=== PATIENT | female | born 1965 | race Caucasian/White ===

== ENCOUNTER → 2016-11-22 | Outpatient (REF) | payer OTHER ==
[2016-11-22 13:13] LABS: BASO % 0.1 % (0.0-1.0); EOS # 0.2 K/mm3 (0.0-0.50); EOS % 2.4 % (0.0-3.0); LARGE UNSTAINED CELL # 0.1 K/mm3 (0.0-0.4); LARGE UNSTAINED CELL % 1.8 % (0.0-4.0); LYMPH # 2.1 K/mm3 (1.5-4.5); LYMPH % 28.3 % (24.0-44.0); MEAN CORPUSCULAR HGB CONC 34.2 g/dl (32.0-36.5); MEAN CORPUSCULAR VOLUME 90.7 fl (80.0-96.0); MONO # 0.4 K/mm3 (0.0-0.8); MONO % 5.4 % (0.0-5.0); NEUTROPHILS # 4.5 K/mm3 (1.8-7.7); PLATELET COUNT, AUTOMATED 312 k/mm3 (150-450); RED CELL DISTRIBUTION WIDTH 13.2 % (11.5-14.5); WHITE BLOOD COUNT 7.3 K/mm3 (4.0-10.0)
[2016-11-22 13:14] LABS: ALBUMIN/GLOBULIN RATIO 1.43 (1.00-1.93); ALKALINE PHOSPHATASE 66 U/L (45-117); ALT/SGPT 39 U/L (12-78); ANION GAP 8 MEQ/L (8-16); AST/SGOT 14 U/L (15-37); BILIRUBIN,TOTAL 0.3 MG/DL (0.2-1.0); BLOOD UREA NITROGEN 14 MG/DL (7-18); CALCIUM LEVEL 8.7 MG/DL (8.5-10.1); CARBON DIOXIDE LEVEL 27 MEQ/L (21-32); CHLORIDE LEVEL 108 MEQ/L (98-107); CHOLESTEROL LEVEL 248 MG/DL (<200); CREATININE FOR GFR 0.91 MG/DL (0.55-1.02); FREE T4 1.02 NG/DL (0.76-1.46); GLOMERULAR FILTRATION RATE > 60.0 (>58); GLUCOSE, FASTING 96 MG/DL (70-105); SODIUM LEVEL 143 MEQ/L (136-145); TOTAL PROTEIN 6.8 GM/DL (6.4-8.2); TRIGLYCERIDES LEVEL 269 MG/DL (<150)
== END ==
LOC: M SFHCADAM 07:52
PROVIDERS: ATTEND Physician Assistant Medical
DX: Z83.3 Family history of diabetes mellitus (principal)

== ENCOUNTER → 2017-01-02 | Day surgery (SDC) | payer OTHER ==
[~2017-01-02] VITALS: Ht 160 cm; Wt 77.1 kg
[~2017-01-02] MED LIST: CALTCHW5 PO; CENTTAB12 PO; CHLOROPROCAINE 2 % INJ PRES.FREE 20 ML VIAL (J2400) As Ordered ONE; FISH1000 PO; FLUC150T PO; IBUPROFEN 600 MG TAB PO PRN; KETOROLAC 60 MG/2 ML VIAL (J1885) As Ordered ONE; LIDOCAINE 2% INJ 100 MG/5 ML SDV (FOR ANES.) As Ordered ONE; LR 1,000 ML IV SCH; METOCLOPRAMIDE INJ 10MG/2ML VIAL (J2765) IV PRN; MIDAZOLAM INJ 2 MG/2 ML VIAL (J2250) As Ordered ONE; NORCO, ANEXSIA 5/325MG TABLET (HYDROcodone/ACETAMINOPHEN) PO PRN; ONDANSETRON 4MG/2ML VIAL (J2405) As Ordered ONE; ONDANSETRON 4MG/2ML VIAL (J2405) IV PRN; PROPOFOL 200 MG/20 ML VIAL As Ordered ONE; VITA1CAP7 PO; VITATAB11 PO; dexameTHASONE 4 MG/ML 1ML VIAL (J1100) As Ordered ONE; fentaNYL 100 MCG/2 ML INJECTION (J3010) As Ordered ONE; fentaNYL 100 MCG/2 ML INJECTION (J3010) IV PRN
[2017-01-02 11:24] LABS: CONTROL LINE UCG INT CTR LINE PRESENT
--- NOTE | 2017-01-02 14:24 | RO ---
DATE OF SURGERY: 01/02/2017 PREOPERATIVE DIAGNOSES AND INDICATION FOR SURGERY: Menorrhagia and dysmenorrhea, failed conservative measures. POSTOPERATIVE DIAGNOSES: Menorrhagia and dysmenorrhea, failed conservative measures. PROCEDURE: Dilation and curettage (D and C), hysteroscopy, NovaSure ablation. SURGEON: Anabelle Al MD MITER OPERATOR: ANESTHESIA: Spinal. BRIEF DESCRIPTION OF PROCEDURE AND FINDINGS: Francisca was brought to the operating room, where sufficient spinal anesthesia was induced, and she was prepped, draped, and positioned in the usual sterile fashion. The bladder was emptied, and the cervix was grasped with a single-tooth tenaculum. This uterus would be accessible from below. The uterus was then sounded, and the endometrial cavity measured at 4.5 after an 8.5 sounding measurement and a 4 cm cervical length, so we had a length of the endometrial cavity of 4.5. We subsequently measured width at 4.4, but at this point, we just had length 4.5. I then dilated the cervix in order to introduce the hysteroscope, which was used to visualize the endometrial cavity, which was normal in appearance. There was a little bit of thickening of the endometrium posteriorly and in the lower uterine segment anteriorly, but this is certainly to be expected, given her menometrorrhagia; and definitely, the lining was consistent with sort-of asynchronous endometrium. We then after visualizing the cavity, curetted, sampled this tissue again, and then placed the NovaSure ablative device. Again, length was set at 4.5. Width was measured at 4.4; and so, this was set; and then, an uncomplicated NovaSure endometrial ablation was carried out. The procedure was then ended. Estimated blood loss for the procedure was 5 mL or less. Fluid replacement was crystalloid. COMPLICATIONS: None. CONDITION AND DISPOSITION: Francisca tolerated the procedure well and was recovering in the recovery room in good condition.
[2017-01-02 16:55] VITALS: BP 161/95
== END | disposition home or self-care (01) ==
LOC: M SDC 10:23
PROVIDERS: ATTEND Obstetrics & Gynecology
DX: N92.0 Excessive and frequent menstruation with regular cycle (principal); N94.6 Dysmenorrhea, unspecified; K21.9 Gastro-esophageal reflux disease without esophagitis; K44.9 Diaphragmatic hernia without obstruction or gangrene; Z88.2 Allergy status to sulfonamides
CPT/HCPCS: 58563; 84703; 88305; C2618; J1100; J1885; J2250; J2400; J2405; J3010

== ENCOUNTER → 2017-01-30 | Outpatient (CLI) | payer OTHER ==
[~2017-01-30] MED LIST changes: -CHLOROPROCAINE 2 % INJ PRES.FREE 20 ML VIAL (J2400) As Ordered ONE; -IBUPROFEN 600 MG TAB PO PRN; -KETOROLAC 60 MG/2 ML VIAL (J1885) As Ordered ONE; -LIDOCAINE 2% INJ 100 MG/5 ML SDV (FOR ANES.) As Ordered ONE; -LR 1,000 ML IV SCH; -METOCLOPRAMIDE INJ 10MG/2ML VIAL (J2765) IV PRN; -MIDAZOLAM INJ 2 MG/2 ML VIAL (J2250) As Ordered ONE; -NORCO, ANEXSIA 5/325MG TABLET (HYDROcodone/ACETAMINOPHEN) PO PRN; -ONDANSETRON 4MG/2ML VIAL (J2405) As Ordered ONE; -ONDANSETRON 4MG/2ML VIAL (J2405) IV PRN; -PROPOFOL 200 MG/20 ML VIAL As Ordered ONE; -dexameTHASONE 4 MG/ML 1ML VIAL (J1100) As Ordered ONE; -fentaNYL 100 MCG/2 ML INJECTION (J3010) As Ordered ONE; -fentaNYL 100 MCG/2 ML INJECTION (J3010) IV PRN
--- NOTE | 2017-01-30 16:05 | REP ---
Clinical: thoracic pain. Technique: AP, lateral, and swimmers views. Findings: Alignment and kyphosis is maintained. Vertebral bodies intact. No acute fracture / compression injury or subluxation. No degenerative changes. Paravertebral soft tissues are normal. Impression: Normal thoracic spine series. Signed by Jaquan Nix MD 01/30/2017 03:56 P
--- NOTE | 2017-01-30 16:06 | REP ---
Clinical: Lower back pain. Technique: AP, lateral, bilateral oblique and coned-down views of the lumbosacral spine. Findings: Alignment and lordosis maintained. No acute fracture / compression injury or subluxation. Moderate degenerative changes at the L3-4 and L4-5 levels including anterior spurring, endplate sclerosis and minimal disc space narrowing. Moderate to advanced degenerative changes at the L5-S1 level include endplate sclerosis, anterior spurring, pronounced disc space narrowing and hypertrophic facet changes. No evidence for spondylolysis or spondylolisthesis. Impression: Moderate to early advanced degenerative changes. Signed by Jaquan Nix MD 01/30/2017 03:58 P
== END ==
LOC: M ADAMS 14:11
PROVIDERS: ATTEND Physician Assistant Medical
DX: M51.36 Other intervertebral disc degeneration, lumbar region (principal)
CPT/HCPCS: 72072; 72100; G0463

== ENCOUNTER → 2017-11-13 | Outpatient (REF) | payer OTHER ==
[2017-11-13 17:27] LABS: APPEARANCE, URINE HAZY (CLEAR); BACTERIA, URINE AUTO NEGATIVE (NEGATIVE); BILIRUBIN, URINE AUTO NEGATIVE (NEGATIVE); BLOOD, URINE BLOOD NEGATIVE (NEGATIVE); COLOR, URINE YELLOW (YELLOW); GLUCOSE, URINE (UA) AUTO NEGATIVE (NEGATIVE); KETONE, URINE AUTO TRACE mg/dL (NEGATIVE); LEUKOCYTE ESTERASE, URINE AUTO 1+ (NEGATIVE); MUCUS, URINE SMALL (NEGATIVE); NITRITE, URINE AUTO NEGATIVE (NEGATIVE); PROTEIN, URINE AUTO NEGATIVE (NEGATIVE); RBC, URINE AUTO 2 /HPF (0-3); SPECIFIC GRAVITY URINE AUTO 1.015 (1.002-1.035); SQUAMOUS EPITHELIAL CELL UR AU 5 /HPF (0-6); UROBILINOGEN, URINE AUTO 0.2 mg/dL (0.0-2.0); WBC, URINE AUTO 4 /HPF (0-3)
== END ==
LOC: M LAB REF 16:28
DX: N39.0 Urinary tract infection, site not specified (principal)
CPT/HCPCS: 81001

== ENCOUNTER → 2017-11-24 | Outpatient (REF) | payer OTHER ==
[2017-11-24 20:59] LABS: BASO # 0.1 10^3/uL (0.0-0.2); BASO % 0.6 % (0.0-1.0); EOS # 0.2 10^3/uL (0.0-0.50); HEMATOCRIT 38.8 % (36.0-47.0); HEMOGLOBIN 13.1 g/dl (12.0-16.0); IMMATURE GRANULOCYTE % 0.2 % (0-0); LYMPH # 2.3 10^3/uL (1.5-4.5); LYMPH % 27.8 % (24.0-44.0); MEAN CORPUSCULAR HEMOGLOBIN 31.1 pg (27.0-33.0); MEAN CORPUSCULAR HGB CONC 33.8 g/dl (32.0-36.5); MEAN CORPUSCULAR VOLUME 92.2 fl (80.0-96.0); MONO # 0.9 10^3/uL (0.0-0.8); MONO % 11.2 % (0.0-5.0); NEUTROPHILS # 4.9 10^3/uL (1.8-7.7); NEUTROPHILS % 58.2 % (36.0-66.0); PLATELET COUNT, AUTOMATED 281 10^3/uL (150-450); RED BLOOD COUNT 4.21 10^6/uL (4.00-5.40); RED CELL DISTRIBUTION WIDTH 12.9 % (11.5-14.5); WHITE BLOOD COUNT 8.4 10^3/uL (4.0-10.0)
[2017-11-24 21:10] LABS: FERRITIN 59 NG/ML (8-252); FREE T4 0.96 NG/DL (0.76-1.46); IRON (FE) 94 UG/DL (50-170); PERCENT SATURATION 30.9 % (13.2-45.0); THYROID STIMULATING HORMONE 0.921 uIU/ML (0.358-3.740); TOTAL IRON BINDING CAPACITY 304 UG/DL (250-450)
== END ==
LOC: M SFHCADAM 15:23
DX: N93.9 Abnormal uterine and vaginal bleeding, unspecified (principal)

== ENCOUNTER → 2018-04-10 | Outpatient (REF) | payer OTHER ==
[2018-04-10 12:48] LABS: APPEARANCE, URINE CLEAR (CLEAR); BACTERIA, URINE AUTO 1+ (NEGATIVE); BILIRUBIN, URINE AUTO NEGATIVE (NEGATIVE); BLOOD, URINE BLOOD NEGATIVE (NEGATIVE); COLOR, URINE STRAW (YELLOW); GLUCOSE, URINE (UA) AUTO NEGATIVE (NEGATIVE); KETONE, URINE AUTO NEGATIVE (NEGATIVE); LEUKOCYTE ESTERASE, URINE AUTO NEGATIVE (NEGATIVE); NITRITE, URINE AUTO NEGATIVE (NEGATIVE); PROTEIN, URINE AUTO NEGATIVE (NEGATIVE); RBC, URINE AUTO 0 /HPF (0-3); SPECIFIC GRAVITY URINE AUTO 1.003 (1.002-1.035); SQUAMOUS EPITHELIAL CELL UR AU 1 /HPF (0-6); UROBILINOGEN, URINE AUTO 0.2 mg/dL (0.0-2.0); WBC, URINE AUTO 1 /HPF (0-3)
== END ==
LOC: M SFHCADAM 11:28
DX: M54.5 Low back pain (principal)

== ENCOUNTER → 2018-05-30 | Outpatient (REF) | payer OTHER ==
[2018-05-30 17:44] LABS: APPEARANCE, URINE CLEAR (CLEAR); BACTERIA, URINE AUTO NEGATIVE (NEGATIVE); BILIRUBIN, URINE AUTO NEGATIVE (NEGATIVE); BLOOD, URINE BLOOD 2+ (NEGATIVE); COLOR, URINE STRAW (YELLOW); GLUCOSE, URINE (UA) AUTO NEGATIVE (NEGATIVE); KETONE, URINE AUTO NEGATIVE (NEGATIVE); LEUKOCYTE ESTERASE, URINE AUTO TRACE (NEGATIVE); MUCUS, URINE SMALL (NEGATIVE); NITRITE, URINE AUTO NEGATIVE (NEGATIVE); PROTEIN, URINE AUTO NEGATIVE (NEGATIVE); RBC, URINE AUTO 24 /HPF (0-3); SPECIFIC GRAVITY URINE AUTO 1.006 (1.002-1.035); SQUAMOUS EPITHELIAL CELL UR AU 0 /HPF (0-6); UROBILINOGEN, URINE AUTO 0.2 mg/dL (0.0-2.0); WBC, URINE AUTO 4 /HPF (0-3)
== END ==
LOC: M LAB REF 17:01
DX: N39.0 Urinary tract infection, site not specified (principal)

== ENCOUNTER → 2018-06-14 | Outpatient (REF) | payer OTHER ==
[2018-06-14 17:33] LABS: APPEARANCE, URINE CLEAR (CLEAR); BACTERIA, URINE AUTO NEGATIVE (NEGATIVE); BILIRUBIN, URINE AUTO NEGATIVE (NEGATIVE); BLOOD, URINE BLOOD NEGATIVE (NEGATIVE); COLOR, URINE YELLOW (YELLOW); GLUCOSE, URINE (UA) AUTO NEGATIVE (NEGATIVE); KETONE, URINE AUTO NEGATIVE (NEGATIVE); LEUKOCYTE ESTERASE, URINE AUTO 2+ (NEGATIVE); MUCUS, URINE SMALL (NEGATIVE); NITRITE, URINE AUTO NEGATIVE (NEGATIVE); PROTEIN, URINE AUTO NEGATIVE (NEGATIVE); RBC, URINE AUTO 3 /HPF (0-3); SPECIFIC GRAVITY URINE AUTO 1.008 (1.002-1.035); SQUAMOUS EPITHELIAL CELL UR AU 1 /HPF (0-6); UROBILINOGEN, URINE AUTO 0.2 mg/dL (0.0-2.0); WBC, URINE AUTO 4 /HPF (0-3)
== END ==
LOC: M LAB REF 16:59
DX: N39.0 Urinary tract infection, site not specified (principal)
CPT/HCPCS: 81001

== ENCOUNTER → 2018-06-20 | Outpatient (REF) | payer OTHER ==
[2018-06-20 19:50] LABS: APPEARANCE, URINE CLEAR (CLEAR); BACTERIA, URINE AUTO NEGATIVE (NEGATIVE); BILIRUBIN, URINE AUTO NEGATIVE (NEGATIVE); BLOOD, URINE BLOOD 1+ (NEGATIVE); COLOR, URINE COLORLESS (YELLOW); GLUCOSE, URINE (UA) AUTO NEGATIVE (NEGATIVE); KETONE, URINE AUTO NEGATIVE (NEGATIVE); LEUKOCYTE ESTERASE, URINE AUTO 1+ (NEGATIVE); NITRITE, URINE AUTO NEGATIVE (NEGATIVE); PROTEIN, URINE AUTO NEGATIVE (NEGATIVE); RBC, URINE AUTO 0 /HPF (0-3); SPECIFIC GRAVITY URINE AUTO 1.001 (1.002-1.035); SQUAMOUS EPITHELIAL CELL UR AU 0 /HPF (0-6); UROBILINOGEN, URINE AUTO 0.2 mg/dL (0.0-2.0); WBC, URINE AUTO 1 /HPF (0-3)
== END ==
LOC: M LAB REF 16:54
DX: R31.9 Hematuria, unspecified (principal)

== ENCOUNTER → 2018-06-26 | Outpatient (REF) | payer OTHER ==
[2018-06-26 13:34] LABS: FREE T4 0.93 NG/DL (0.76-1.46); THYROID STIMULATING HORMONE 0.669 uIU/ML (0.358-3.740)
== END ==
LOC: M LABDRWAD 12:55
DX: N92.6 Irregular menstruation, unspecified (principal)
CPT/HCPCS: 84443

== ENCOUNTER → 2018-08-23 | Outpatient (REF) | payer OTHER ==
[2018-08-23 19:01] LABS: BASO % 0.5 % (0.0-1.0); EOS # 0.2 10^3/uL (0.0-0.50); HEMATOCRIT 38.1 % (36.0-47.0); HEMOGLOBIN 12.9 g/dl (12.0-15.5); IMMATURE GRANULOCYTE % 0.5 % (0-3.0); LYMPH # 2.4 10^3/uL (1.5-4.5); LYMPH % 30.2 % (24.0-44.0); MEAN CORPUSCULAR HEMOGLOBIN 31.4 pg (27.0-33.0); MEAN CORPUSCULAR HGB CONC 33.9 g/dl (32.0-36.5); MEAN CORPUSCULAR VOLUME 92.7 fl (80.0-96.0); MONO # 0.5 10^3/uL (0.0-0.8); MONO % 6.7 % (0.0-5.0); NEUTROPHILS # 4.6 10^3/uL (1.8-7.7); NEUTROPHILS % 59.1 % (36.0-66.0); PLATELET COUNT, AUTOMATED 284 10^3/uL (150-450); RED BLOOD COUNT 4.11 10^6/uL (4.00-5.40); RED CELL DISTRIBUTION WIDTH 12.8 % (11.5-14.5); WHITE BLOOD COUNT 7.8 10^3/uL (4.0-10.0)
[2018-08-23 19:11] LABS: PARTIAL THROMBOPLASTIN TIME 27.7 SECONDS (25.4-37.6); PROTHROMBIN TIME 11.2 SECONDS (12.1-14.4)
[2018-08-23 19:15] LABS: ALBUMIN 3.7 GM/DL (3.2-5.2); ANION GAP 6 MEQ/L (8-16); BLOOD UREA NITROGEN 13 MG/DL (7-18); CALCIUM LEVEL 8.7 MG/DL (8.5-10.1); CARBON DIOXIDE LEVEL 33 MEQ/L (21-32); CHLORIDE LEVEL 104 MEQ/L (98-107); CREATININE FOR GFR 1.01 MG/DL (0.55-1.30); GLOMERULAR FILTRATION RATE > 60.0 (>51); GLUCOSE, FASTING 108 MG/DL (70-100); POTASSIUM SERUM 3.9 MEQ/L (3.5-5.1); SODIUM LEVEL 143 MEQ/L (136-145)
== END ==
LOC: M SFHCADAM 15:15
DX: Z01.812 Encounter for preprocedural laboratory examination (principal); N20.1 Calculus of ureter

== ENCOUNTER → 2019-01-20 | Outpatient (REF) | payer OTHER | LOC: M LAB REF 10:12 | PROVIDERS: ATTEND Physician Assistant | DX: R30.0 Dysuria (principal) ==

== ENCOUNTER → 2019-01-31 | Outpatient (REF) | payer OTHER ==
[2019-01-31 19:37] LABS: AMORPHOUS SEDIMENT SMALL (NEGATIVE); APPEARANCE, URINE CLEAR (CLEAR); BACTERIA, URINE AUTO 1+ (NEGATIVE); BILIRUBIN, URINE AUTO NEGATIVE (NEGATIVE); BLOOD, URINE BLOOD 1+ (NEGATIVE); COLOR, URINE STRAW (YELLOW); GLUCOSE, URINE (UA) AUTO NEGATIVE (NEGATIVE); KETONE, URINE AUTO NEGATIVE (NEGATIVE); LEUKOCYTE ESTERASE, URINE AUTO 3+ (NEGATIVE); NITRITE, URINE AUTO NEGATIVE (NEGATIVE); PROTEIN, URINE AUTO NEGATIVE (NEGATIVE); RBC, URINE AUTO 0 /HPF (0-3); SPECIFIC GRAVITY URINE AUTO 1.001 (1.002-1.035); SQUAMOUS EPITHELIAL CELL UR AU 0 /HPF (0-6); UROBILINOGEN, URINE AUTO 0.2 mg/dL (0.0-2.0); WBC, URINE AUTO 15 /HPF (0-3)
[2019-01-31 19:39] LABS: BASO % 0.5 % (0.0-1.0); EOS # 0.2 10^3/uL (0.0-0.50); EOS % 1.8 % (0.0-3.0); HEMATOCRIT 39.1 % (36.0-47.0); HEMOGLOBIN 13.3 g/dl (12.0-15.5); LYMPH # 2.9 10^3/uL (1.5-4.5); LYMPH % 34.4 % (24.0-44.0); MEAN CORPUSCULAR HEMOGLOBIN 30.6 pg (27.0-33.0); MEAN CORPUSCULAR VOLUME 89.9 fl (80.0-96.0); MONO # 0.6 10^3/uL (0.0-0.8); MONO % 7.6 % (0.0-5.0); NEUTROPHILS # 4.6 10^3/uL (1.8-7.7); NEUTROPHILS % 55.6 % (36.0-66.0); PLATELET COUNT, AUTOMATED 302 10^3/uL (150-450); RED BLOOD COUNT 4.35 10^6/uL (4.00-5.40); WHITE BLOOD COUNT 8.3 10^3/uL (4.0-10.0)
[2019-01-31 19:42] LABS: ALBUMIN 4.1 GM/DL (3.2-5.2); ALT/SGPT 62 U/L (12-78); BILIRUBIN,TOTAL 0.3 MG/DL (0.2-1.0); BLOOD UREA NITROGEN 14 MG/DL (7-18); CALCIUM LEVEL 9.2 MG/DL (8.5-10.1); CARBON DIOXIDE LEVEL 30 MEQ/L (21-32); CHLORIDE LEVEL 104 MEQ/L (98-107); CHOLESTEROL LEVEL 263 MG/DL (<200); CHOLESTEROL RISK RATIO 6.116 (<5); GLOMERULAR FILTRATION RATE > 60.0 (>51); GLUCOSE, FASTING 84 MG/DL (70-100); HDL CHOLESTEROL 43 MG/DL (>40); LDL CHOLESTEROL 145 MG/DL (<100); NON-HDL-C 220 MG/DL; SODIUM LEVEL 140 MEQ/L (136-145); TOTAL PROTEIN 7.2 GM/DL (6.4-8.2); TRIGLYCERIDES LEVEL 373 MG/DL (<150)
== END ==
LOC: M SFHCADAM 13:43
PROVIDERS: ATTEND Physician Assistant Medical
DX: I72.8 Aneurysm of other specified arteries (principal); N93.9 Abnormal uterine and vaginal bleeding, unspecified; E66.3 Overweight; E78.2 Mixed hyperlipidemia

== ENCOUNTER → 2019-02-01 | Outpatient (CLI) | payer OTHER ==
[~2019-02-01] MED LIST changes: +ISOVUE-370 76% 125ML VIAL (Q9967 PER ML) As Ordered ONE
--- NOTE | 2019-02-01 09:43 | REP ---
CT ANGIOGRAPHY OF THE ABDOMEN AND VISCERAL ARTERIES WITH IV CONTRAST: HISTORY: Splenic artery aneurysm. Comparison is made with KUB study from August 17, 2018, CT exam from July 11, 2018. CT CONTRAST DOSE: 100 mL of intravenous Isovue [address] FINDINGS: Nonvascular findings include a [id number] size hiatal hernia, moderate diffuse fatty infiltration of the liver, cholelithiasis, bilateral intrarenal nephrolithiasis and bilateral renal cysts. The largest intrarenal calculus in the right mid kidney measuring 7 mm. The largest cyst is adjacent to this in the right mid kidney. This cyst shows some focal thin calcification in one of its garcia. This cyst measures 3.1 cm in greatest diameter. No hydronephrosis is seen. VASCULAR FINDINGS: There is atherosclerotic calcification in a normal caliber infrarenal abdominal aorta. No aneurysm is seen. The common iliac, proximal external iliac, and proximal internal iliac arteries are bilaterally patent. Singular nonstenotic renal arteries are noted bilaterally. The celiac superior mesenteric and inferior mesenteric axes are patent and nonstenotic. There is a thrombosed peripherally calcified 1.1 cm aneurysm of the distal splenic artery near the splenic hilus. No other aneurysm is seen. The splenic artery is tortuous particularly distally. There is no evidence of splenic infarct. 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 Mild atherosclerotic changes. Incidental findings include fatty liver, hiatal hernia, cholelithiasis, bilateral nephrolithiasis, and bilateral renal cysts. Electronically Signed by Abelardo Hdz MD 02/01/2019 02:29 P
== END ==
LOC: M RAD 07:28
PROVIDERS: ATTEND Physician Assistant Medical
DX: I72.8 Aneurysm of other specified arteries (principal); K44.9 Diaphragmatic hernia without obstruction or gangrene; K76.0 Fatty (change of) liver, not elsewhere classified; K80.20 Calculus of gallbladder without cholecystitis without obstruction; N20.0 Calculus of kidney; N28.1 Cyst of kidney, acquired; I70.0 Atherosclerosis of aorta
CPT/HCPCS: 74175; Q9967

== ENCOUNTER → 2019-03-28 | Outpatient (REF) | payer OTHER ==
[~2019-03-28] MED LIST changes: +D-3-50003 PO; -ISOVUE-370 76% 125ML VIAL (Q9967 PER ML) As Ordered ONE; -VITA1CAP7 PO
[2019-03-28 19:53] LABS: BLOOD UREA NITROGEN 14 MG/DL (7-18); CREATININE FOR GFR 1.01 MG/DL (0.55-1.30); GLOMERULAR FILTRATION RATE > 60.0 (>51)
== END ==
LOC: M SFHCADAM 09:31
PROVIDERS: ATTEND Physician Assistant Medical
DX: I72.8 Aneurysm of other specified arteries (principal)

== ENCOUNTER → 2019-05-10 | Outpatient (REF) | payer OTHER ==
[2019-05-10 13:16] LABS: BLOOD UREA NITROGEN 14 MG/DL (7-18); CALCIUM LEVEL 9.4 MG/DL (8.5-10.1); CARBON DIOXIDE LEVEL 29 MEQ/L (21-32); CHLORIDE LEVEL 106 MEQ/L (98-107); CREATININE FOR GFR 1.01 MG/DL (0.55-1.30); GLOMERULAR FILTRATION RATE > 60.0 (>51); GLUCOSE, FASTING 88 MG/DL (70-100); POTASSIUM SERUM 3.5 MEQ/L (3.5-5.1); SODIUM LEVEL 142 MEQ/L (136-145)
== END ==
LOC: M LABDRWAD 12:37
PROVIDERS: ATTEND Internal Medicine Nephrology
DX: E87.6 Hypokalemia (principal)

== ENCOUNTER → 2019-06-03 | Outpatient (REF) | payer OTHER ==
[2019-06-03 19:37] LABS: BLOOD UREA NITROGEN 13 MG/DL (7-18); CALCIUM LEVEL 9.1 MG/DL (8.5-10.1); CARBON DIOXIDE LEVEL 28 MEQ/L (21-32); CHLORIDE LEVEL 104 MEQ/L (98-107); CREATININE FOR GFR 0.89 MG/DL (0.55-1.30); GLOMERULAR FILTRATION RATE > 60.0 (>51); GLUCOSE, FASTING 104 MG/DL (70-100); MAGNESIUM LEVEL 2.2 MG/DL (1.8-2.4); POTASSIUM SERUM 3.3 MEQ/L (3.5-5.1); SODIUM LEVEL 141 MEQ/L (136-145)
== END ==
LOC: M LABDRWAD 19:00
PROVIDERS: ATTEND Physician Assistant
DX: E87.6 Hypokalemia (principal); E87.8 Other disorders of electrolyte and fluid balance, not elsewhere classified

== ENCOUNTER 2019-07-03 18:45 | Inpatient (IN) | payer OTHER ==
[~2019-07-03] VITALS: Ht 160 cm; Wt 71.8 kg
[2019-07-03] MEDS ORDERED: ACET-683 PO (18:50)
[2019-07-03] MEDS ORDERED: AMLO5TAB6 PO (18:50)
[2019-07-03] MEDS ORDERED: KETOROLAC 30 MG/ML VIAL (J1885) IV ONE (19:00)
[2019-07-03] MEDS ORDERED: NS 1,000 ML IV ONE ×2 (19:00→22:15)
[2019-07-03] MEDS ORDERED: ONDANSETRON 4MG/2ML VIAL (J2405) IV ONE (19:00)
[2019-07-03 19:40] LABS: BASO % 0.2 % (0.0-1.0); EOS % 0.1 % (0.0-3.0); HEMATOCRIT 41.6 % (36.0-47.0); HEMOGLOBIN 14.1 g/dl (12.0-15.5); LYMPH # 0.8 10^3/uL (1.5-4.5); MEAN CORPUSCULAR HEMOGLOBIN 31.7 pg (27.0-33.0); MEAN CORPUSCULAR HGB CONC 33.9 g/dl (32.0-36.5); MEAN CORPUSCULAR VOLUME 93.5 fl (80.0-96.0); MONO # 0.1 10^3/uL (0.0-0.8); MONO % 0.9 % (0.0-5.0); NEUTROPHILS # 12.5 10^3/uL (1.8-7.7); NEUTROPHILS % 92.4 % (36.0-66.0); PLATELET COUNT, AUTOMATED 277 10^3/uL (150-450); RED BLOOD COUNT 4.45 10^6/uL (4.00-5.40); WHITE BLOOD COUNT 13.6 10^3/uL (4.0-10.0)
[2019-07-03 19:43] LABS: CALCIUM LEVEL 9.2 MG/DL (8.5-10.1); CREATININE FOR GFR 1.19 MG/DL (0.55-1.30); GLOMERULAR FILTRATION RATE 50.7 (>51); POTASSIUM SERUM 3.6 MEQ/L (3.5-5.1)
[2019-07-03] MEDS ORDERED: cefTRIAXone SOD 1 GM in D5W MINI-BAG PLUS 50 ML IV ONE (20:00)
--- NOTE | 2019-07-03 20:32 | REPVR ---
EXAM: CT Abdomen and Pelvis Without Contrast EXAM DATE/TIME: 07/03/2019 7:26 PM CLINICAL HISTORY: 54 years old, female; Abdominal pain; Flank; Left; Additional info: Left flank pain, HX stones TECHNIQUE: Imaging protocol: Computed tomography of the abdomen and pelvis without contrast. Radiation optimization: All CT scans at this facility use at least one of these dose optimization techniques: automated exposure control; mA and/or kV adjustment per patient size (includes targeted exams where dose is matched to clinical indication); or iterative reconstruction. COMPARISON: CT ANGIO ABDOMEN 02/01/2019 7:55 AM FINDINGS: Mediastinum: There is a large sliding hiatal hernia. Liver: The liver is low in density. Gallbladder and bile ducts: Gallstone is seen in the gallbladder. Pancreas: Normal. No ductal dilation. Spleen: Normal. No splenomegaly. Adrenals: Normal. No mass. Kidneys and ureters: Left: There is moderate to severe left-sided hydronephrosis. There is stranding of the intrarenal and perinephric fat. There are multiple left-sided renal calculi. At least 3 calcifications in the lower pole, the largest measuring 2.5 mm with a density measurement of 205H. . 2 in the midportion of the kidney with the largest measuring 1.8 mm. Several in the upper pole of the left kidney with the largest measuring less than 1.5 mm. There is a 1.1 cm calculus noted in the distal left ureter at the level of the superior endplate of S1 and with a density measurement of 1013 H. Right: Multiple right-sided renal calcifications are present. Increased density noted of the medullary appearance bilaterally.. Largest calcification in the right kidney is located in the midportion of the kidney measuring 6.5 mm. Stomach and bowel: Normal. No obstruction. No mucosal thickening. Appendix: No evidence of appendicitis. Intraperitoneal space: Normal. No free air. No significant fluid collection. Vasculature: Normal. No abdominal aortic aneurysm. Lymph nodes: Normal. No enlarged lymph nodes. Bladder: Unremarkable as visualized. Reproductive: 1.6 cm cyst in the right ovary. There are 2 - 1cm cysts in the left ovary. Bones/joints: No acute fracture. No dislocation. Degenerative changes noted at the lumbosacral junction. Soft tissues: There is a small bilateral inguinal hernias containing fat. No signs of strangulation. There is a small on the local hernia containing fat. No evidence of strangulation in the above described hernias IMPRESSION: 1. Moderate to severe left-sided hydronephrosis and hydroureter secondary to obstructing calculus in the distal ureter 2. Bilateral renal calculi. Medullary sponge kidney among the diagnostic considerations 3. Bilateral ovarian cysts. These are within the range of normal for a menstruating female. Correlate with patient's menstrual status. 4. Hepatic steatosis. 5. Small bilateral inguinal hernias. Small umbilical hernia. No evidence of strangulation 6. Large sliding hiatal hernia 7. Gallstones Electronically signed by: Sunita Mendoza On 07/03/2019 20:31:47 PM
[2019-07-03] MEDS ORDERED: LIDOCAINE 2% INJ 100 MG/5 ML SDV (FOR ANES.) As Ordered ONE (22:35)
[2019-07-03] MEDS ORDERED: MIDAZOLAM INJ 2 MG/2 ML VIAL (J2250) As Ordered ONE (22:35)
[2019-07-03] MEDS ORDERED: fentaNYL 100 MCG/2 ML INJECTION (J3010) As Ordered ONE (22:35)
[2019-07-03] MEDS ORDERED: PROPOFOL 200 MG/20 ML VIAL As Ordered ONE (22:35)
[2019-07-03] MEDS ORDERED: ONDANSETRON 4MG/2ML VIAL (J2405) As Ordered ONE (22:36)
[2019-07-03] MEDS ORDERED: dexameTHASONE 4 MG/ML 1ML VIAL (J1100) As Ordered ONE (22:36)
[2019-07-03] MEDS ORDERED: CENT1TAB9 PO (22:38)
[2019-07-03] MEDS ORDERED: B COTAB3 PO (22:38)
[2019-07-03] MEDS ORDERED: CITRTAB19 PO (22:38)
[2019-07-03] MEDS ORDERED: FISH1CAP26 PO (22:38)
[2019-07-03] MEDS ORDERED: KETOROLAC 30 MG/ML VIAL (J1885) IV PRN (22:45)
[2019-07-03] MEDS ORDERED: ONDANSETRON 4MG/2ML VIAL (J2405) IV PRN (22:45)
[2019-07-03] MEDS ORDERED: LIDOCAINE 2% 5ML JELLY UROJET As Ordered ONE (23:21)
[2019-07-03] MEDS ORDERED: CONRAY-60 60% 50ML VIAL (Q9961) As Ordered ONE (23:21)
--- NOTE | 2019-07-03 23:31 | SMCUROLCON ---
Urology Consultation General Date of Consultation 07/03/19 Reason For Consultation This patient is seen for Left Ureteral Calculus;Pyelonephritis;Sepsis. History of Present Illness This is a 54 y/o F w/ a PMH significant for HTN, medullary sponge kidney, and kidney stones, presenting to the ER w/ a acute onset left flank pain starting earlier today. She also notes persistent nausea and vomiting. She denies dysuria, but notes urinary frequency and urgency x1-[address] A/P is notable a hydronephrotic and edematous appearing left kidney w/ perinephric stranding, and a 1cm obstructing distal left ureteral stone. There are also b/l nonobstructing stones. Labs were notable for a WBC of 13 and lactic acid of 3.4. Her UA was positive for nitrites. She has had low grade fevers. Past Medical History Medical History see HPI Surgical Hstory lithotripsy, uterine ablation Medications Current Medications Current Medications Medications (Trade) Dose Ordered Sig/Gautam Route PRN Reason Start Time Stop Time Status Last Admin Dose Admin Acetaminophen (Tylenol Tab) 650 mg Q6HP PRN PO mild pain 07/03/19 22:45 Ceftriaxone Sodium 1 gm/ Dextrose 50 ml @ 100 mls/hr Q24H IV 07/04/19 21:00 Heparin Sodium (Porcine) (Heparin) 5,000 units Q8H SC 07/04/19 06:00 Home Med (Med Rec Complete!) ASDIRECTED XX 07/03/19 22:45 07/03/19 22:45 DC Ketorolac Tromethamine (ToRADol) 15 mg Q6HP PRN IV severe pain 07/03/19 22:45 07/08/19 22:44 Ondansetron HCl (ZOFRAN INJection) 4 mg Q4HP PRN IV NAUSEA OR VOMITING 07/03/19 22:45 Sodium Chloride 1,000 ml @ 100 mls/hr Q10H IV 07/03/19 22:45 Allergies Allergies: Coded Allergies: Sulfa (Sulfonamide Antibiotics) (Verified Allergy, Unknown, 07/03/19) Review of Systems Constitutional: Reports: Fever (low grade fever) Skin: Denies: Rash, Lesions, Breakdown, Nail Changes Pulmonary: Denies: Dyspnea, Cough Cardiovascular: Denies Chest Pain, Denies Palpitations Gastrointestinal: Reports: Nausea, Vomiting, Abdominal Pain Genitourinary: Reports: Frequency, Other Symptoms (urgency) Musculoskeletal: Reports: Back Pain (left flank pain) Psych: Reports: Mood Normal Physical Examination General Exam: Alert, No Acute Distress Chest Exam: Normal air movement Heart Exam: Tachycardic Skin Exam: Nl turgor and temperature Neuro Exam: Normal Speech Psych Exam: Mental status NL, Mood NL Vital Signs/I&O Vital Signs Date Time Temp Pulse Resp B/P (MAP) Pulse Ox O2 Delivery O2 Flow Rate FiO2 07/03/19 21:46 99.1 122 18 126/82 (97) 94 Room Air Laboratory Data 24H Labs Laboratory Tests 2 07/03/19 19:00: Immature Granulocyte % (Auto) 0.4, White Blood Count 13.6H, Red Blood Count 4.45, Hemoglobin 14.1, Hematocrit 41.6, Mean Corpuscular Volume 93.5, Mean Corpuscular Hemoglobin 31.7, Mean Corpuscular Hemoglobin Concent 33.9, Red Cell Distribution Width 13.7, Platelet Count 277, Neutrophils (%) (Auto) 92.4H, Lymphocytes (%) (Auto) 6.0L, Monocytes (%) (Auto) 0.9, Eosinophils (%) (Auto) 0.1, Basophils (%) (Auto) 0.2, Neutrophils # (Auto) 12.5H, Lymphocytes # (Auto) 0.8L, Monocytes # (Auto) 0.1, Eosinophils # (Auto) 0.0, Basophils # (Auto) 0.0, Nucleated Red Blood Cells % (auto) 0.0, Anion Gap 9, Glomerular Filtration Rate 50.7L, Blood Urea Nitrogen 15, Creatinine 1.19, Sodium Level 138, Potassium Level 3.6, Chloride Level 102, Carbon Dioxide Level 27, Calcium Level 9.2 07/03/19 19:10: Urine Color YELLOW, Urine Appearance HAZY, Urine pH 7.0, Urine Specific [place] 1.009, Urine Protein NEGATIVE, Urine Glucose (UA) NEGATIVE, Urine Ketones TRACEH, Urine Blood NEGATIVE, Urine Nitrite POSITIVEH, Urine Bilirubin NEGATIVE, Urine Urobilinogen 0.2, Urine Leukocyte Esterase 1+H, Urine WBC (Auto) 27H, Urine RBC (Auto) 6H, Urine Hyaline Casts (Auto) 0, Urine Bacteria (Auto) 1+H, Urine Squamous Epithelial Cells 0, Urine Sperm (Auto) 07/03/19 22:27: Lactic Acid Level 3.4*H CBC/BMP Laboratory Tests 07/03/19 19:00 Red Blood Count 4.45, Mean Corpuscular Volume 93.5, Mean Corpuscular Hemoglobin 31.7, Mean Corpuscular Hemoglobin Concent 33.9, Red Cell Distribution Width 13.7, Neutrophils (%) (Auto) 92.4 H, Lymphocytes (%) (Auto) 6.0 L, Monocytes (%) (Auto) 0.9, Eosinophils (%) (Auto) 0.1, Basophils (%) (Auto) 0.2, Neutrophils # (Auto) 12.5 H, Lymphocytes # (Auto) 0.8 L, Monocytes # (Auto) 0.1, Eosinophils # (Auto) 0.0, Basophils # (Auto) 0.0, Calcium Level 9.2 Microbiology Microbiology 07/03/19 Blood Culture, Received Pending 07/03/19 Blood Culture, Received Pending 07/03/19 Urine Culture, Received Pending Assessment This is a 54 y/o F w/ possible pyelonephritis/sepsis due to a 1cm obstructing left ureteral stone and a UTI. I recommended that we take her to the OR tonight for cystoscopy and left ureteral stent placement. After a discussion of the risks and benefits, informed consent was signed. Plan - informed consent signed for cystoscopy, left ureteral stent placement - urine and blood cultures obtained in the ED - marc patterson - NPO - going to OR now MARGAUX BABB MD Jul 03, 2019 23:31
--- NOTE | 2019-07-03 23:36 | HPEPDOC ---
General Date of Admission Jul 03, 2019 at 22:44 Date of Service: Jul 03, 2019 Primary Care Physician: Bryce Posadas MD Chief Complaint The patient is a 54-year-old female admitted with a reason for visit of Left Ureteral Calculus;Pyelonephritis;Sepsis. Source: Patient, Family History of Present Illness 54 y/o F with HTN, medullary sponge kidney, nephrolitasis presents to ED with complaints of acute onset flank pain starting approximately 12:30 pm today, initially managed with Tylenol however became progressively worse. Pain is noted to be sharp, initially 8/10 at approximately 6 pm and then 10/10, located along left flank and left pain, worse with movement and palpation, associated with approximately 6 episodes of nausea with NBNB vomiting prior to presentation, chills and low grade fevers at home. In ED patient noted to be tachycardic and developed temp of 100.4, WBC 13.6, LA 3.4, UA positive, CT Abd/Pelvis notable for multiple left sided renal calculi with 1.1 cm left distal ureteral obstructing stone with moderate to severe left sided hydronephrosis and perinephric fat stranding. Urology consulted in the ED and planning for cystoscopy and left ureteral stent placement tonight. She was given 2L NS, 1g ceftriaxone, Toradol 15mg IV, Zofran 4mg IV. Home Medications Scheduled Amlodipine Besylate (Amlodipine Besylate) 5 Mg Tablet, 1 TAB PO DAILY, (Reported) Calcium Carb, Citrate/Vit D3 (Citracal + D ER Tablet) 1 Each Tablet.er, 1 TAB PO DAILY, (Reported) Multivit-Min/Iron/Folic/Lutein (Centrum Silver Women Tablet) 1 Each Tablet, 1 TAB PO DAILY, (Reported) Wallace 3 Polyunsat Fatty Acids (Fish Oil 1,000 mg Softgel) 1,000 Mg Capsule, 1,000 MG PO DAILY, (Reported) Vitamin B Complex (Vitamin B Complex) 1 Each Tablet, 1 TAB PO DAILY, (Reported) Scheduled PRN Acetaminophen (Acetaminophen) 500 Mg Tablet, 1,000 MG PO Q6H PRN for pain, (Reported) Allergies Coded Allergies: Sulfa (Sulfonamide Antibiotics) (Verified Allergy, Unknown, 07/03/19) Past Medical History Medical History HTN, Medullary sponge Kidney, Nephrolithiasis, degenerative joint disease Surgical History Removal of left kidney stones 08/2018, Uterine ablation 12/2016. Family History Mother DM, HTN. Father Kidney stones, Prostate ca, melanoma Social History * Smoker: Denies no tobacco, etoh or illicit drug use. Lives at home with and 2 sons, does not work. A-FIB/CHADSVASC A-FIB History Current/History of A-Fib/PAF?: No Review of Systems Constitutional: Reports: Chills, Fever Eyes: Denies: Pain, Vision change ENT: Denies: Head Aches Skin: Denies: Rash, Lesions Pulmonary: Denies: Dyspnea, Cough Cardiovascular: Denies: Chest Pain, Palpitations, Edema Gastrointestinal: Reports: Nausea, Vomiting, Abdominal Pain; Denies: Diarrhea, Constipation Genitourinary: Reports: Dysuria, Frequency; Denies: Incontinence, Hematuria Hematologic: Denies: Bruising, Bleeding Excessively, Petecchia, Purpura Endocrine: Denies: Heat Intolerance, Cold Intolerance Musculoskeletal: Reports: Back Pain; Denies: Neck Pain, Shoulder Pain, Arm Pain Neurological: Denies: Weakness, Numbness, Change in speech, Confusion, Seizures Psych: Reports: Mood Normal; Denies: Anxiety, Depression Physical Examination General Exam: Positive: Alert, Cooperative, Mild Distress Eye Exam: Positive: Conjunctiva & lids normal, EOMI; Negative: Sclera icteric ENT Exam: Positive: Atraumatic, Mucous membr. moist/pink, Tongue Midline Neck Exam: Positive: Supple; Negative: JVD, thyromegaly Chest Exam: Positive: Clear to auscultation, Normal air movement; Negative: Rales, Rhonchi, Wheezing Heart Exam: Positive: Tachycardic, Normal S1, Normal S2; Negative: Gallops, Murmurs, Rubs Abdomen Exam: Positive: Normal bowel sounds, Soft, Tenderness; Negative: Mass, Hernia Extremity Exam: Negative: Clubbing, Cyanosis, Edema Skin Exam: Positive: Nl turgor and temperature Neuro Exam: Positive: Normal Tone, Sensation Intact, Cranial Nerves 3-12 NL Psych Exam: Positive: Mental status NL, Mood NL Other physical findings Abdominal exam: left sided abdominal tenderness to deep palpation. Mild left CVA tenderness. My exam done after initial pain management by ED. Vital Signs Vital Signs Date Time Temp Pulse Resp B/P (MAP) Pulse Ox O2 Delivery O2 Flow Rate FiO2 07/03/19 23:10 100.4 127 24 120/79 (93) 94 Room Air Laboratory Data Labs 24H Laboratory Tests 2 07/03/19 19:00: Immature Granulocyte % (Auto) 0.4, White Blood Count 13.6H, Red Blood Count 4.45, Hemoglobin 14.1, Hematocrit 41.6, Mean Corpuscular Volume 93.5, Mean Corpuscular Hemoglobin 31.7, Mean Corpuscular Hemoglobin Concent 33.9, Red Cell Distribution Width 13.7, Platelet Count 277, Neutrophils (%) (Auto) 92.4H, Lymph ocytes (%) (Auto) 6.0L, Monocytes (%) (Auto) 0.9, Eosinophils (%) (Auto) 0.1, Basophils (%) (Auto) 0.2, Neutrophils # (Auto) 12.5H, Lymphocytes # (Auto) 0.8L, Monocytes # (Auto) 0.1, Eosinophils # (Auto) 0.0, Basophils # (Auto) 0.0, Nucleated Red Blood Cells % (auto) 0.0, Anion Gap 9, Glomerular Filtration Rate 50.7L, Blood Urea Nitrogen 15, Creatinine 1.19, Sodium Level 138, Potassium Level 3.6, Chloride Level 102, Carbon Dioxide Level 27, Calcium Level 9.2 07/03/19 19:10: Urine Color YELLOW, Urine Appearance HAZY, Urine pH 7.0, Urine Specific [place] 1.009, Urine Protein NEGATIVE, Urine Glucose (UA) NEGATIVE, Urine Ketones TRACEH, Urine Blood NEGATIVE, Urine Nitrite POSITIVEH, Urine Bilirubin NEGATIVE, Urine Urobilinogen 0.2, Urine Leukocyte Esterase 1+H, Urine WBC (Auto) 27H, Urine RBC (Auto) 6H, Urine Hyaline Casts (Auto) 0, Urine Bacteria (Auto) 1+H, Urine Squamous Epithelial Cells 0, Urine Sperm (Auto) 07/03/19 22:27: Lactic Acid Level 3.4*H CBC/BMP Laboratory Tests 07/03/19 19:00 Red Blood Count 4.45, Mean Corpuscular Volume 93.5, Mean Corpuscular Hemoglobin 31.7, Mean Corpuscular Hemoglobin Concent 33.9, Red Cell Distribution Width 13.7, Neutrophils (%) (Auto) 92.4 H, Lymphocytes (%) (Auto) 6.0 L, Monocytes (%) (Auto) 0.9, Eosinophils (%) (Auto) 0.1, Basophils (%) (Auto) 0.2, Neutrophils # (Auto) 12.5 H, Lymphocytes # (Auto) 0.8 L, Monocytes # (Auto) 0.1, Eosinophils # (Auto) 0.0, Basophils # (Auto) 0.0, Calcium Level 9.2 Microbiology Microbiology 07/03/19 Blood Culture, Received Pending 07/03/19 Blood Culture, Received Pending 07/03/19 Urine Culture, Received Pending RAD Interpretation STUDY: Rad Actions: Report Reviewed Assessment/Plan 54 y/o F with HTN, medullary sponge kidney, Nephrolithiasis admitted for sepsis due to obstructing left distal ureteral stone associated with left hydronephrosis and UTI. Plan / VTE VTE Prophylaxis Ordered?: Yes Plan Plan Sepsis due to obstructing left distal ureteral stone associated with left hydronephrosis and UTI -Discussed with Dr. Lima, will take patient to the OR tonight for cystoscopy and ureteral stenting. Given sepsis will manage on medical service. -monitor on telemetry in PCU floor -Continue aggressive IVF hydration with NS. -Monitor I&O -Continue Ceftriaxone 1g daily for now. -Follow up Blood cultures x2 and Urine culture -Tylenol PRN mild pain, Toradol 15mg IV q6 PRN severe pain. Zofran IV PRN for nausea -NPO for procedure then likely able to resume 2g Na diet in AM HTN -continue home amlodipine 5mg Dvt ppx: Heparin IVF: Continue Diet: Make NPO Anticipated Discharge: Home SUMAYA LIEBERMAN MD Jul 03, 2019 23:36
[2019-07-04] VITALS (7 sets, daily range): BP systolic 109–136; BP diastolic 68–78
[2019-07-04] MEDS: LR 1,000 ML IV SCH ×2 (00:05→00:46)
[2019-07-04] MEDS ORDERED: PROMETHAZINE INJ 25 MG/ML VIAL (J2550) IV PRN (00:15)
[2019-07-04] MEDS ORDERED: METOCLOPRAMIDE INJ 10MG/2ML VIAL (J2765) IV PRN (00:15)
[2019-07-04] MEDS ORDERED: ONDANSETRON 4MG/2ML VIAL (J2405) IV PRN (00:15)
[2019-07-04] MEDS ORDERED: oxyCODONE 5MG TAB PO PRN (00:15)
[2019-07-04] MEDS ORDERED: fentaNYL 100 MCG/2 ML INJECTION (J3010) IV PRN (00:15)
[2019-07-04] MEDS: NS 1,000 ML IV SCH ×3 (01:01→17:36)
[2019-07-04] MEDS: ACETAMINOPHEN TAB 650MG DOSE (2X325MG) PO PRN ×3 (01:02→21:25)
[2019-07-04 02:59] LABS: HEMATOCRIT 36.5 % (36.0-47.0); HEMOGLOBIN 12.4 g/dl (12.0-15.5); MEAN CORPUSCULAR HEMOGLOBIN 31.6 pg (27.0-33.0); MEAN CORPUSCULAR VOLUME 92.9 fl (80.0-96.0); PLATELET COUNT, AUTOMATED 230 10^3/uL (150-450); RED BLOOD COUNT 3.93 10^6/uL (4.00-5.40); WHITE BLOOD COUNT 24.1 10^3/uL (4.0-10.0)
[2019-07-04 03:21] LABS: ALBUMIN 3.2 GM/DL (3.2-5.2); BILIRUBIN,TOTAL 0.4 MG/DL (0.2-1.0); CALCIUM LEVEL 8.8 MG/DL (8.5-10.1); CREATININE FOR GFR 1.15 MG/DL (0.55-1.30); GLOMERULAR FILTRATION RATE 52.8 (>51); POTASSIUM SERUM 3.9 MEQ/L (3.5-5.1); TOTAL PROTEIN 6.5 GM/DL (6.4-8.2)
[2019-07-04] MEDS: HEPARIN SOD (PORCINE) 5000 UNITS/ML VIAL SC SCH ×3 (06:04→21:26)
--- NOTE | 2019-07-04 07:46 | IPNPDOC ---
Subjective Review oF Systems Chief Complaint The patient is a 54-year-old female admitted with a reason for visit of Left Ureteral Calculus;Pyelonephritis;Sepsis. Events since Last Encounter No acute events o/n. Patient notes her pain is much better this am. No n/v. Had a low grade temp o/n. Objective Physical Examination General Exam: Alert, Cooperative, No Acute Distress ABDOMEN EXAM: Soft, Tenderness (mildLLQ) Skin Exam: Nl turgor and temperature Neuro Exam: Normal Speech Psych Exam: Mental status NL, Mood NL Other physical findings catheter draining clear yellow urine Vital Signs/I&O Vital Signs Date Time Temp Pulse Resp B/P (MAP) Pulse Ox O2 Delivery O2 Flow Rate FiO2 07/04/19 04:00 97.0 109 18 120/74 (89) 92 07/03/19 23:10 Room Air I&O- Last 24 Hours up to 6 AM 07/04/19 06:00 Intake Total 1850 ml Output Total 1600 ml Balance 250 ml Laboratory Data Labs 24H Laboratory Tests 2 07/03/19 19:00: Immature Granulocyte % (Auto) 0.4, White Blood Count 13.6H, Red Blood Count 4.45, Hemoglobin 14.1, Hematocrit 41.6, Mean Corpuscular Volume 93.5, Mean Corpuscular Hemoglobin 31.7, Mean Corpuscular Hemoglobin Concent 33.9, Red Cell Distribution Width 13.7, Platelet Count 277, Neutrophils (%) (Auto) 92.4H, Lymphocytes (%) (Auto) 6.0L, Monocytes (%) (Auto) 0.9, Eosinophils (%) (Auto) 0.1, Basophils (%) (Auto) 0.2, Neutrophils # (Auto) 12.5H, Lymphocytes # (Auto) 0.8L, Monocytes # (Auto) 0.1, Eosinophils # (Auto) 0.0, Basophils # (Auto) 0.0, Nucleated Red Blood Cells % (auto) 0.0, Anion Gap 9, Glomerular Filtration Rate 50.7L, Blood Urea Nitrogen 15, Creatinine 1.19, Sodium Level 138, Potassium Leve l 3.6, Chloride Level 102, Carbon Dioxide Level 27, Calcium Level 9.2 07/03/19 19:10: Urine Color YELLOW, Urine Appearance HAZY, Urine pH 7.0, Urine Specific [place] 1.009, Urine Protein NEGATIVE, Urine Glucose (UA) NEGATIVE, Urine Ketones TRACEH, Urine Blood NEGATIVE, Urine Nitrite POSITIVEH, Urine Bilirubin NEGATIVE, Urine Urobilinogen 0.2, Urine Leukocyte Esterase 1+H, Urine WBC (Auto) 27H, Urine RBC (Auto) 6H, Urine Hyaline Casts (Auto) 0, Urine Bacteria (Auto) 1+H, Urine Squamous Epithelial Cells 0, Urine Sperm (Auto) 07/03/19 22:27: Lactic Acid Level 3.4*H 07/04/19 02:47: Nucleated Red Blood Cells % (auto) 0.0, Anion Gap 7L, Glomerular Filtration Rate 52.8, Blood Urea Nitrogen 12, Creatinine 1.15, Sodium Level 143, Potassium Level 3.9, Chloride Level 111H, Carbon Dioxide Level 25, Calcium Level 8.8, Lactic Acid Followup at 4 Hours 3.1*H, Aspartate Amino Transf (AST/SGOT) 21, Alanine Aminotransferase (ALT/SGPT) 38, Alkaline Phosphatase 66, Total Bilirubin 0.4, Total Protein 6.5, Albumin 3.2, Albumin/Globulin Ratio 0.97L CBC/BMP Laboratory Tests 07/03/19 19:00 Red Blood Count 4.45, Mean Corpuscular Volume 93.5, Mean Corpuscular Hemoglobin 31.7, Mean Corpuscular Hemoglobin Concent 33.9, Red Cell Distribution Width 13.7, Neutrophils (%) (Auto) 92.4 H, Lymphocytes (%) (Auto) 6.0 L, Monocytes (%) (Auto) 0.9, Eosinophils (%) (Auto) 0.1, Basophils (%) (Auto) 0.2, Neutrophils # (Auto) 12.5 H, Lymphocytes # (Auto) 0.8 L, Monocytes # (Auto) 0.1, Eosinophils # (Auto) 0.0, Basophils # (Auto) 0.0, Calcium Level 9.2 07/04/19 02:47 Red Blood Count 3.93 L, Mean Corpuscular Volume 92.9, Mean Corpuscular Hemoglobin 31.6, Mean Corpuscular Hemoglobin Concent 34.0, Red Cell Distribution Width 13.8, Calcium Level 8.8, Aspartate Amino Transf (AST/SGOT) 21, Alanine Aminotransferase (ALT/SGPT) 38, Alkaline Phosphatase 66, Total Bilirubin 0.4, Total Protein 6.5, Albumin 3.2 Microbiology Microbiology 07/03/19 Blood Culture, Received Pending 07/03/19 Blood Culture, Received Pending 07/03/19 Urine Culture, Received Pending 07/03/19 Urine Culture, Received Pending Assessment/Plan Date Seen The patient was seen on 07/04/19. Patient Summary This is a 54 y/o F admitted w/ left pyelonephritis/possible sepsis due to a UTI and an obstructing 1cm distal left ureteral stone, POD1 s/p cysto w/ left ureteral stent placement. She feels much better this am. Her WBC went up to 24, likely related to her surgery last night. Plan/VTE VTE Prophylaxis Ordered?: Yes Plan/Urinary Catheter Urinary Catheter: D/C Suero Plan - ok to d/c Suero - f/u urine and blood cultures - cont broad spectrum abx per hospitalist team and adjust based on culture results - discussed w/ patient that she will need to be on abx for 10-14 days and once her infection has cleared, we will set her up for b/l ureteroscopy to address stones on both sides - my office will call to schedule f/u to set this up IVF: Continue Diet: Make NPO Anticipated Discharge: Home MARGAUX BABB MD Jul 04, 2019 07:46
--- NOTE | 2019-07-04 07:55 | REP ---
Retrograde pyelogram: A series of three intraoperative fluoroscopic views are performed during left ureteral stent placement. The final film demonstrates the proximal and distal stent pigtails to be in satisfactory positions. The images are performed with last image hold technology. This requires no additional radiation. Fluoroscopic exposure time is 32 seconds. Electronically Signed by John Tee MD 07/04/2019 07:46 A
--- NOTE | 2019-07-04 09:12 | IPNPDOC ---
Subjective Date Seen The patient was seen on 07/04/19. Subjective Chief Complaint/HPI Patient lying in bed as I entered the room. S/P ureteral stent placement. She reports to be feeling much better from onset of symptoms Constitutional: Denies: Chills, Fever Pulmonary: Denies: Dyspnea, Cough Cardiovascular: Denies: Chest Pain, Palpitations Gastrointestinal: Denies: Nausea, Vomiting, Abdominal Pain Genitourinary: Reports: Other Symptoms (Suero insitu); Denies: Dysuria, Hematuria Psych: Reports: Mood Normal Objective Physical Examination General Exam: Positive: Alert, Cooperative, No Acute Distress Eye Exam: Positive: Conjunctiva & lids normal, EOMI; Negative: Sclera icteric ENT Exam: Positive: Atraumatic, Mucous membr. moist/pink Neck Exam: Positive: Supple; Negative: JVD, thyromegaly Chest Exam: Positive: Clear to auscultation, Normal air movement; Negative: Rales, Rhonchi, Wheezing Heart Exam: Positive: Rate Normal, Regular Rhythm Abdomen Exam: Positive: Normal bowel sounds, Soft; Negative: Tenderness, Mass Extremity Exam: Negative: Clubbing, Cyanosis, Edema Skin Exam: Positive: Nl turgor and temperature Neuro Exam: Positive: Normal Speech, Normal Tone Psych Exam: Positive: Mental status NL, Mood NL Assessment /Plan Problems (1) Pyelonephritis Status: Acute Problem Text: 07/03/19: Day # 1 of Ceftriaxone. Urine culture pending CT abdomen/pelvis: IMPRESSION: 1. Moderate to severe left-sided hydronephrosis and hydroureter secondary to obstructing calculus in the distal ureter 2. Bilateral renal calculi. Medullary sponge kidney among the diagnostic considerations 3. Bilateral ovarian cysts. These are within the range of normal for a menstruating female. Correlate with patient's menstrual status. 4. Hepatic steatosis. 5. Small bilateral inguinal hernias. Small umbilical hernia. No evidence of strangulation 6. Large sliding hiatal hernia 7. Gallstones (2) Left ureteral calculus Status: Acute Problem Specific Plan: Consult Specialist Problem Text: 07/03/29: Dr. Lima was consulted. Patient is s/p ureteral stent placement. Her pain is much improved (3) Sepsis Status: Acute Response to Treatment: Stable Problem Text: 07/03/19: IVF fluids, D#1 Ceftriaxone. WBC 24.1, lactic acid 3.1. T-Max 100.3. B/P remains stable (4) Hypertension Status: Chronic Response to Treatment: Stable Problem Text: 07/03/19: Amlodipine on hold Plan/VTE VTE Prophylaxis Ordered?: Yes (Heparin ) Plan/Urinary Catheter Urinary Catheter: D/C Suero Plan IVF: Continue Diet: Make NPO Anticipated Discharge: Home VS, I&O, 24H, Fishbone Vital Signs/I&O Vital Signs Date Time Temp Pulse Resp B/P (MAP) Pulse Ox O2 Delivery O2 Flow Rate FiO2 07/04/19 08:00 98.9 106 18 109/74 (86) 90 07/03/19 23:10 Room Air I&O- Last 24 Hours up to 6 AM 07/04/19 06:00 Intake Total 1850 ml Output Total 1600 ml Balance 250 ml Laboratory Data 24H LABS Laboratory Tests 2 07/03/19 19:00: Immature Granulocyte % (Auto) 0.4, White Blood Count 13.6H, Red Blood Count 4.45, Hemoglobin 14.1, Hematocrit 41.6, Mean Corpuscular Volume 93.5, Mean Cor puscular Hemoglobin 31.7, Mean Corpuscular Hemoglobin Concent 33.9, Red Cell Distribution Width 13.7, Platelet Count 277, Neutrophils (%) (Auto) 92.4H, Lymphocytes (%) (Auto) 6.0L, Monocytes (%) (Auto) 0.9, Eosinophils (%) (Auto) 0.1, Basophils (%) (Auto) 0.2, Neutrophils # (Auto) 12.5H, Lymphocytes # (Auto) 0.8L, Monocytes # (Auto) 0.1, Eosinophils # (Auto) 0.0, Basophils # (Auto) 0.0, Nucleated Red Blood Cells % (auto) 0.0, Anion Gap 9, Glomerular Filtration Rate 50.7L, Blood Urea Nitrogen 15, Creatinine 1.19, Sodium Level 138, Potassium Level 3.6, Chloride Level 102, Carbon Dioxide Level 27, Calcium Level 9.2 07/03/19 19:10: Urine Color YELLOW, Urine Appearance HAZY, Urine pH 7.0, Urine Specific [place] 1.009, Urine Protein NEGATIVE, Urine Glucose (UA) NEGATIVE, Urine Ketones TRACEH, Urine Blood NEGATIVE, Urine Nitrite POSITIVEH, Urine Bilirubin NEGATIVE, Urine Urobilinogen 0.2, Urine Leukocyte Esterase 1+H, Urine WBC (Auto) 27H, Urine RBC (Auto) 6H, Urine Hyaline Casts (Auto) 0, Urine Bacteria (Auto) 1+H, Urine Squamous Epithelial Cells 0, Urine Sperm (Auto) 07/03/19 22:27: Lactic Acid Level 3.4*H 07/04/19 02:47: Nucleated Red Blood Cells % (auto) 0.0, Anion Gap 7L, Glomerular Filtration Rate 52.8, Blood Urea Nitrogen 12, Creatinine 1.15, Sodium Level 143, Potassium Level 3.9, Chloride Level 111H, Carbon Dioxide Level 25, Calcium Level 8.8, Lactic Acid Followup at 4 Hours 3.1*H, Aspartate Amino Transf (AST/SGOT) 21, Alanine Aminotransferase (ALT/SGPT) 38, Alkaline Phosphatase 66, Total Bilirubin 0.4, Total Protein 6.5, Albumin 3.2, Albumin/Globulin Ratio 0.97L CBC/BMP Laboratory Tests 07/03/19 19:00 Red Blood Count 4.45, Mean Corpuscular Volume 93.5, Mean Corpuscular Hemoglobin 31.7, Mean Corpuscular Hemoglobin Concent 33.9, Red Cell Distribution Width 13.7, Neutrophils (%) (Auto) 92.4 H, Lymphocytes (%) (Auto) 6.0 L, Monocytes (%) (Auto) 0.9, Eosinophils (%) (Auto) 0.1, Basophils (%) (Auto) 0.2, Neutrophils # (Auto) 12.5 H, Lymphocytes # (Auto) 0.8 L, Monocytes # (Auto) 0.1, Eosinophils # (Auto) 0.0, Basophils # (Auto) 0.0, Calcium Level 9.2 07/04/19 02:47 Red Blood Count 3.93 L, Mean Corpuscular Volume 92.9, Mean Corpuscular Hemoglobin 31.6, Mean Corpuscular Hemoglobin Concent 34.0, Red Cell Distribution Width 13.8, Calcium Level 8.8, Aspartate Amino Transf (AST/SGOT) 21, Alanine Aminotransferase (ALT/SGPT) 38, Alkaline Phosphatase 66, Total Bilirubin 0.4, Total Protein 6.5, Albumin 3.2 Microbiology Microbiology 07/03/19 Blood Culture, Received Pending 07/03/19 Blood Culture, Received Pending 07/03/19 Urine Culture, Received Pending 07/03/19 Urine Culture, Received Pending [facility] Jul 04, 2019 09:12
[2019-07-04] MEDS ORDERED: CALCIUM CARBONATE 500 MG CHEW U/D PO PRN (09:30)
[2019-07-04] MEDS ORDERED: MAALOX 30 ML SUSP *UDC PO PRN (17:00)
[2019-07-04] MEDS: PANTOPRAZOLE 20 MG TAB PO SCH (17:35)
--- NOTE | 2019-07-04 19:45 | RO ---
DATE OF PROCEDURE: 07/03/2019 PREPROCEDURE DIAGNOSIS: Left ureteral stone, urinary tract infection. POSTPROCEDURE DIAGNOSIS: Left ureteral stone, urinary tract infection. PROCEDURE: Cystoscopy, left ureteral stent placement, left retrograde pyelogram with intraoperative interpretation of images. SURGEON: Alejo Lima MD TECHNICAL SERVICE REPRESENTATIVE: None. ANESTHESIA: Monitored anesthesia care (MAC). OPERATIVE INDICATIONS: This is a 54-year-old female who presented to the emergency room with acute onset left flank pain and nausea and vomiting. CAT scan notable for a 1 cm obstructing distal left ureteral stone with an edematous appearing left kidney and hydronephrosis as well as perinephric stranding. Her labs were concerning for a urinary tract infection and potentially pyelonephritis or sepsis. She was brought to operating room today for the above listened procedure. DESCRIPTION OF PROCEDURE: The patient was brought to the operating room and MAC anesthesia was administered. Broad-spectrum antibiotics had been infused. She was then placed in the dorsal lithotomy position and prepped and draped in the usual sterile fashion. A rigid cystoscope was inserted into the urethral meatus and advanced to the bladder. Once inside the bladder, a #5-Stateless open-ended ureteral catheter was advanced up the left collecting system. It was advanced past the stone and into the kidney. At this point, I aspirated urine out of the left kidney and the urine did appear more purulent. A retrograde pyelogram was then performed, notable for moderate left hydronephrosis. No extravasation. I then advanced a wire up the left collecting system and then utilized the wire to advance a #7-Stateless x 22-32 cm JJ ureteral stent. The wire was removed, and there were adequate curls of the stent in the left renal pelvis and in the bladder. At this point, the scope was removed and the #18-Stateless Suero catheter was inserted into the bladder. The balloon was filled with 10 mL of sterile water, and the catheter was connected to gravity drainage. This marked the conclusion of the procedure. The patient was then taken out of the dorsal lithotomy position, awakened from anesthesia and transported to the recovery room in stable condition. Estimated blood loss: 0 mL. Complications: None. Specimens: Urine from left kidney for culture. PLAN: The patient will be admitted to the hospitalist service postoperatively and be monitored for signs of worsening sepsis. She will be kept on broad-spectrum antibiotics. Once her infection has been cleared, we will bring her back to the operating room in a few weeks to take care of her left and most likely her right-sided kidney stones as well.
--- NOTE | 2019-07-04 21:17 | ECGEPIP ---
[facility] - ED Test Date: 2019-07-03 Pat Name: ASHELY ESPINOZA Department: Room: [place] [address] Gender: Female Counselor Marriage And Family: JACKSON : 1965 Requested By: NICHOLE GONZALES PA-C. Order Number: [id number] Reading MD: Connie Wells Measurements Intervals [place] Rate: 129 P: 60 CO: 141 QRS: 6 QRSD: 86 T: 22 QT: 316 QTc: 463 Interpretive Statements SINUS TACHYCARDIA POSSIBLE INFERIOR MYOCARDIAL INFARCTION, PROBABLY OLD ABNORMAL RHYTHM ECG NSTTW abnormalities NO PRIOR Electronically Signed on 07-04-2019 21:17:03 EDT by Connie Wells
[2019-07-04] MEDS: cefTRIAXone SOD 1 GM in D5W MINI-BAG PLUS 50 ML IV SCH (21:26)
[2019-07-05] MEDS: NS 1,000 ML IV SCH (03:37)
[2019-07-05 04:00] VITALS: BP 132/78
[2019-07-05] MEDS: HEPARIN SOD (PORCINE) 5000 UNITS/ML VIAL SC SCH ×3 (05:39→20:15)
[2019-07-05 06:04] LABS: BASO % 0.2 % (0.0-1.0); EOS % 0.1 % (0.0-3.0); HEMATOCRIT 34.5 % (36.0-47.0); HEMOGLOBIN 11.6 g/dl (12.0-15.5); LYMPH # 1.8 10^3/uL (1.5-4.5); LYMPH % 10.2 % (24.0-44.0); MEAN CORPUSCULAR HGB CONC 33.6 g/dl (32.0-36.5); MONO # 0.7 10^3/uL (0.0-0.8); MONO % 4.2 % (0.0-5.0); NEUTROPHILS # 14.9 10^3/uL (1.8-7.7); NEUTROPHILS % 84.4 % (36.0-66.0); PLATELET COUNT, AUTOMATED 215 10^3/uL (150-450); RED BLOOD COUNT 3.63 10^6/uL (4.00-5.40); WHITE BLOOD COUNT 17.6 10^3/uL (4.0-10.0)
[2019-07-05 06:32] LABS: BLOOD UREA NITROGEN 13 MG/DL (7-18); CALCIUM LEVEL 8.4 MG/DL (8.5-10.1); CARBON DIOXIDE LEVEL 25 MEQ/L (21-32); CHLORIDE LEVEL 111 MEQ/L (98-107); GLOMERULAR FILTRATION RATE > 60.0 (>51); GLUCOSE, FASTING 107 MG/DL (70-100); POTASSIUM SERUM 3.4 MEQ/L (3.5-5.1); SODIUM LEVEL 144 MEQ/L (136-145)
--- NOTE | 2019-07-05 07:57 | IPNPDOC ---
Subjective Date Seen The patient was seen on 07/05/19. Subjective Chief Complaint/HPI Patient lying in bed as I entered the room. She reports to be feeling well Constitutional: Denies: Chills, Fever Pulmonary: Denies: Dyspnea, Cough Cardiovascular: Denies: Chest Pain, Palpitations, Orthopnea, Edema Gastrointestinal: Denies: Nausea, Vomiting, Abdominal Pain, Diarrhea Psych: Reports: Mood Normal Objective Physical Examination General Exam: Positive: Alert, Cooperative, No Acute Distress Eye Exam: Positive: Conjunctiva & lids normal, EOMI; Negative: Sclera icteric ENT Exam: Positive: Atraumatic, Mucous membr. moist/pink Neck Exam: Positive: Supple; Negative: JVD, thyromegaly Chest Exam: Positive: Clear to auscultation, Normal air movement; Negative: Rales, Rhonchi, Wheezing Heart Exam: Positive: Rate Normal, Regular Rhythm Abdomen Exam: Positive: Normal bowel sounds, Soft; Negative: Tenderness, Mass Extremity Exam: Negative: Clubbing, Cyanosis, Edema Skin Exam: Positive: Nl turgor and temperature Neuro Exam: Positive: Normal Speech, Normal Tone Psych Exam: Positive: Mental status NL, Mood NL Assessment /Plan Problems (1) Pyelonephritis Status: Acute Problem Text: 07/05/19: Day #2 of Ceftriaxone. Urine culture returned ecoli. BC negative after 24 hours 07/04/19: Day # 1 of Ceftriaxone. Urine culture pending CT abdomen/pelvis: IMPRESSION: 1. Moderate to severe left-sided hydronephrosis and hydroureter secondary to obstructing calculus in the distal ureter 2. Bilateral renal calculi. Medullary sponge kidney among the diagnostic considerations 3. Bilateral ovarian cysts. These are within the range of normal for a menstruating female. Correlate with patient's menstrual status. 4. Hepatic steatosis. 5. Small bilateral inguinal hernias. Small umbilical hernia. No evidence of strangulation 6. Large sliding hiatal hernia 7. Gallstones (2) Left ureteral calculus Status: Acute Problem Specific Plan: Consult Specialist Problem Text: 07/05/19: Per Dr. Lima progress note, it is ok to d/c Suero; order placed today. Abx therapy for 10-14 days, once her infection has cleared, she will be set up for b/l ureteroscopy to address stones on both sides. Dr. Langston office will call to schedule f/u 07/04/29: Dr. Lima was consulted. Patient is s/p ureteral stent placement. Her pain is much improved (3) Sepsis Status: Acute Response to Treatment: Stable, Improving Problem Text: 07/05/19: Afebrile. B/P stable. WBC is trending down, 17.6. HR 108 07/04/19: IVF fluids, D#1 Ceftriaxone. WBC 24.1, lactic acid 3.1. T-Max 100.3. B/P remains stable (4) Hypertension Status: Chronic Response to Treatment: Stable Problem Text: 07/03/19: Amlodipine on hold Plan/VTE VTE Prophylaxis Ordered?: Yes (Heparin ) Plan/Urinary Catheter Urinary Catheter: D/C Suero Plan IVF: Continue Diet: Make NPO Anticipated Discharge: Home VS, I&O, 24H, Fishbone Vital Signs/I&O Vital Signs Date Time Temp Pulse Resp B/P (MAP) Pulse Ox O2 Delivery O2 Flow Rate FiO2 07/05/19 04:00 97.6 108 18 132/78 (96) 91 07/03/19 23:10 Room Air I&O- Last 24 Hours up to 6 AM 07/05/19 06:00 Intake Total 3490 ml Output Total 5225 ml Balance -1735 ml Laboratory Data 24H LABS Laboratory Tests 2 07/05/19 05:33: Immature Granulocyte % (Auto) 0.9, White Blood Count 17.6H, Red Blood Count 3.63L, Hemoglobin 11.6L, Hematocrit 34.5L, Mean Corpuscular Volume 95.0, Mean C orpuscular Hemoglobin 32.0, Mean Corpuscular Hemoglobin Concent 33.6, Red Cell Distribution Width 14.4, Platelet Count 215, Neutrophils (%) (Auto) 84.4H, Lymphocytes (%) (Auto) 10.2L, Monocytes (%) (Auto) 4.2, Eosinophils (%) (Auto) 0.1, Basophils (%) (Auto) 0.2, Neutrophils # (Auto) 14.9H, Lymphocytes # (Auto) 1.8, Monocytes # (Auto) 0.7, Eosinophils # (Auto) 0.0, Basophils # (Auto) 0.0, Nucleated Red Blood Cells % (auto) 0.0, Anion Gap 8, Glomerular Filtration Rate > 60.0, Blood Urea Nitrogen 13, Creatinine 0.90, Sodium Level 144, Potassium Level 3.4L, Chloride Level 111H, Carbon Dioxide Level 25, Calcium Level 8.4L CBC/BMP Laboratory Tests 07/05/19 05:33 Red Blood Count 3.63 L, Mean Corpuscular Volume 95.0, Mean Corpuscular Hemoglobin 32.0, Mean Corpuscular Hemoglobin Concent 33.6, Red Cell Distribution Width 14.4, Neutrophils (%) (Auto) 84.4 H, Lymphocytes (%) (Auto) 10.2 L, Monocytes (%) (Auto) 4.2, Eosinophils (%) (Auto) 0.1, Basophils (%) (Auto) 0.2, Neutrophils # (Auto) 14.9 H, Lymphocytes # (Auto) 1.8, Monocytes # (Auto) 0.7, Eosinophils # (Auto) 0.0, Basophils # (Auto) 0.0, Calcium Level 8.4 L Microbiology Microbiology 07/03/19 Blood Culture - Preliminary, Resulted No growth after 24 hours . All specim... 07/03/19 Blood Culture - Preliminary, Resulted No growth after 24 hours . All specim... 07/03/19 Urine Culture, Received Pending 07/03/19 Urine Culture - Final, Complete Escherichia Coli [facility] Jul 05, 2019 07:57
[2019-07-05 08:00] VITALS: BP 126/78
[2019-07-05] MEDS ORDERED: POTASSIUM CHLORIDE 10 MEQ SR TABLET PO ONE (08:00)
[2019-07-05] MEDS: PANTOPRAZOLE 20 MG TAB PO SCH (08:46)
[2019-07-05] MEDS ORDERED: SLF 3 ML SYR IV PRN (10:45)
[2019-07-05 12:00] VITALS: BP 132/61
[2019-07-05] MEDS: SLF 3 ML SYR IV SCH ×2 (14:57→20:16)
[2019-07-05 16:00] VITALS: BP 134/90
[2019-07-05 20:00] VITALS: BP 138/75
[2019-07-05] MEDS: cefTRIAXone SOD 1 GM in D5W MINI-BAG PLUS 50 ML IV SCH (20:16)
[2019-07-06] VITALS: BP 124/82
[2019-07-06 04:00] VITALS: BP 133/87
[2019-07-06 05:22] LABS: BASO # 0.1 10^3/uL (0.0-0.2); BASO % 0.5 % (0.0-1.0); EOS # 0.1 10^3/uL (0.0-0.50); HEMATOCRIT 37.8 % (36.0-47.0); HEMOGLOBIN 12.8 g/dl (12.0-15.5); LYMPH # 2.5 10^3/uL (1.5-4.5); LYMPH % 19.5 % (24.0-44.0); MEAN CORPUSCULAR HEMOGLOBIN 30.8 pg (27.0-33.0); MEAN CORPUSCULAR HGB CONC 33.9 g/dl (32.0-36.5); MEAN CORPUSCULAR VOLUME 91.1 fl (80.0-96.0); MONO % 7.6 % (0.0-5.0); NEUTROPHILS # 8.9 10^3/uL (1.8-7.7); NEUTROPHILS % 70.5 % (36.0-66.0); PLATELET COUNT, AUTOMATED 219 10^3/uL (150-450); RED BLOOD COUNT 4.15 10^6/uL (4.00-5.40); WHITE BLOOD COUNT 12.6 10^3/uL (4.0-10.0)
[2019-07-06 05:41] LABS: BLOOD UREA NITROGEN 13 MG/DL (7-18); CALCIUM LEVEL 8.7 MG/DL (8.5-10.1); CARBON DIOXIDE LEVEL 27 MEQ/L (21-32); CHLORIDE LEVEL 109 MEQ/L (98-107); CREATININE FOR GFR 0.97 MG/DL (0.55-1.30); GLOMERULAR FILTRATION RATE > 60.0 (>51); GLUCOSE, FASTING 104 MG/DL (70-100); POTASSIUM SERUM 3.7 MEQ/L (3.5-5.1); SODIUM LEVEL 142 MEQ/L (136-145)
[2019-07-06] MEDS: HEPARIN SOD (PORCINE) 5000 UNITS/ML VIAL SC SCH (06:00)
[2019-07-06] MEDS: SLF 3 ML SYR IV SCH (06:00)
[2019-07-06 08:00] VITALS: BP 134/78
[2019-07-06] MEDS: PANTOPRAZOLE 20 MG TAB PO SCH (08:50)
[2019-07-06] MEDS ORDERED: CEPH500C PO (09:19)
--- NOTE | 2019-07-06 17:31 | DSES ---
DATE OF ADMISSION: 07/03/2019 DATE OF DISCHARGE: 07/06/2019 REASON FOR ADMISSION: Ms. Lezama was admitted from emergency department in consultation with Dr. Lima of the urology service for sepsis and pyelonephritis associated with a left ureteral calculus. She had been on high blood pressure medications, amlodipine 5 mg daily. She has a history of medullary sponge kidney. Has nephrolithiasis, degenerative joint disease. PAST SURGICAL HISTORY Includes previous removal of left kidney stones in August 2018 uterine ablation in December 2016. FAMILY HISTORY: Remarkable for father with kidney stones and prostate cancer and melanoma. SOCIAL HISTORY: Remarkable for being with two sons. No tobacco or alcohol use. On admission, she was found to have some abdominal tenderness, left-sided, with deep palpation, mild left costovertebral angle (CVA) tenderness. She was started on ceftriaxone and seen in consultation by Dr. Lima who did a cystoscopy and left ureteral stent placement and a left retrograde pyelogram. Urinary culture collection grew Escherichia (E) coli, pansensitive organism. The patient does have a history of SULFONAMIDE allergy. She was followed by the [facility] Inpatient Team. Maintained on ceftriaxone with fluids and antibiotics. Her evidence of sepsis improved. Amlodipine was held during her hospital stay because of concerns about hypotension, although she was never truly hypotensive throughout her stay, and toward the end of her stay her pressures had begun to elevate, 138/75, 134/78 on the day of discharge. Laboratory shows hemoglobin of 12.8. White count improved from a peak of 24,100 to 12.6 thousand at the day of discharge with 70% neutrophils and normal platelet count. Chemistries showed calcium to be normal at 8.7. She has a lactic acidosis associated with a septic presentation, 3.4 initially, improved to 3.1. On the day of discharge, sodium 142, potassium 3.7, chloride 109, CO2 of 27, BUN 13, creatinine 0.97, glucose 104. Imaging studies done during hospital stay included an abdominal CT and pelvis CT that showed moderate to severe left-sided hydronephrosis and stranding of intrarenal and perinephric fat, consistent with pyelonephritis. Retrograde pyelogram was done by urology and read by Dr. Tee, showing pigtail stents in satisfactory position, and again culture identified the E. coli, which was sensitive to all antibiotics. DISCHARGE DIAGNOSES: 1. Sepsis. 2. Urinary tract infection. Negative blood cultures. Urinary tract infection with Escherichia (E) coli. 3. Left hydronephrosis with renal stones. Left ureteral stent in place at discharge. PLAN: She will be discharged with the following medications. These will include cephalexin 500 mg three times a day for 10 days, which may be continued at Dr. Lima's discretion. Followup will be with Dr. Lima next week on . She will use Tylenol as needed for pain. Amlodipine 5 mg may be resumed to prevent evolution of hypertension, which will likely return as she is up and about and eating her usual diet. Rising Star-3 fatty acid supplement 1000 mg daily can resume. Vitamin B complex can resume. For now will stop her calcium and vitamin D supplements pending review of this agent by her urologist. Meanwhile, we have ordered an intact parathyroid hormone level to be added to her morning lab draw to allow this hormonal disturbance as a possible contribution to her chronic recurrent stone disease. Activity will be as tolerated. Diet as tolerated. Followup with her primary care provider in 2 weeks approximately.
== END 2019-07-06 10:55 | disposition home or self-care (01) | DRG 872 ==
LOC: M ED 18:45 → M ED INP 22:44 → M PCU 07-04 00:34
PROVIDERS: ADMIT Internal Medicine; ATTEND Family Medicine
PROC: 0T9730Z Drainage of Left Ureter with Drainage Device, Percutaneous Approach (ICD-10-PCS; principal; 2019-07-03 22:12)
DX: A41.9 Sepsis, unspecified organism (principal); N39.0 Urinary tract infection, site not specified; N13.2 Hydronephrosis with renal and ureteral calculous obstruction; Q61.5 Medullary cystic kidney; I10 Essential (primary) hypertension; Z79.899 Other long term (current) drug therapy; Z88.2 Allergy status to sulfonamides; N83.291 Other ovarian cyst, right side; N83.292 Other ovarian cyst, left side; K40.20 Bilateral inguinal hernia, without obstruction or gangrene, not specified as recurrent; K42.9 Umbilical hernia without obstruction or gangrene; K80.20 Calculus of gallbladder without cholecystitis without obstruction

== ENCOUNTER → 2019-07-17 | Outpatient (REF) | payer OTHER ==
[~2019-07-17] MED LIST changes: +ACET-683 PO; +AMLO5TAB6 PO; +B COTAB3 PO; +CENT1TAB9 PO; +CEPH500C PO; +CITRTAB19 PO; +FISH1CAP26 PO
[2019-07-17 14:30] LABS: APPEARANCE, URINE CLEAR (CLEAR); BACTERIA, URINE AUTO NEGATIVE (NEGATIVE); BILIRUBIN, URINE AUTO NEGATIVE (NEGATIVE); BLOOD, URINE BLOOD 1+ (NEGATIVE); COLOR, URINE YELLOW (YELLOW); GLUCOSE, URINE (UA) AUTO NEGATIVE (NEGATIVE); KETONE, URINE AUTO NEGATIVE (NEGATIVE); LEUKOCYTE ESTERASE, URINE AUTO 1+ (NEGATIVE); NITRITE, URINE AUTO NEGATIVE (NEGATIVE); PROTEIN, URINE AUTO NEGATIVE (NEGATIVE); RBC, URINE AUTO 0 /HPF (0-3); SPECIFIC GRAVITY URINE AUTO 1.004 (1.002-1.035); SQUAMOUS EPITHELIAL CELL UR AU 1 /HPF (0-6); UROBILINOGEN, URINE AUTO 0.2 mg/dL (0.0-2.0); WBC, URINE AUTO 5 /HPF (0-3)
== END ==
LOC: M SMT 14:05
PROVIDERS: ATTEND Nurse Practitioner Family
DX: Z01.818 Encounter for other preprocedural examination (principal); N20.0 Calculus of kidney

== ENCOUNTER → 2019-07-17 | Outpatient (REF) | payer OTHER ==
[2019-07-17 14:26] LABS: HEMATOCRIT 38.3 % (36.0-47.0); MEAN CORPUSCULAR HGB CONC 33.9 g/dl (32.0-36.5); MEAN CORPUSCULAR VOLUME 94.3 fl (80.0-96.0); PLATELET COUNT, AUTOMATED 358 10^3/uL (150-450); RED BLOOD COUNT 4.06 10^6/uL (4.00-5.40); WHITE BLOOD COUNT 7.1 10^3/uL (4.0-10.0)
[2019-07-17 14:32] LABS: BLOOD UREA NITROGEN 13 MG/DL (7-18); CALCIUM LEVEL 9.2 MG/DL (8.5-10.1); CARBON DIOXIDE LEVEL 27 MEQ/L (21-32); CHLORIDE LEVEL 105 MEQ/L (98-107); CREATININE FOR GFR 0.88 MG/DL (0.55-1.30); GLOMERULAR FILTRATION RATE > 60.0 (>51); GLUCOSE, FASTING 116 MG/DL (70-100); POTASSIUM SERUM 3.8 MEQ/L (3.5-5.1); SODIUM LEVEL 141 MEQ/L (136-145)
[2019-07-17 15:15] LABS: INR 0.89; PROTHROMBIN TIME 11.7 SECONDS (11.8-14.0)
== END ==
LOC: M LABDRWAD 13:59
PROVIDERS: ATTEND Nurse Practitioner Family
DX: Z01.818 Encounter for other preprocedural examination (principal); N20.0 Calculus of kidney

== ENCOUNTER → 2019-07-17 | Outpatient (CLI) | payer OTHER ==
[~2019-07-17] MED LIST changes: +BACITAB PO; +CIPR-249 PO
--- NOTE | 2019-07-17 13:29 | REP ---
CHEST, TWO VIEWS: COMPARISON: 08/22/2014 Two views of the chest is performed. There is no acute infiltrate. There is mild bibasilar fibrotic change. The heart is normal in size. Mediastinal silhouette is unchanged. There are moderate degenerative changes of the spine. IMPRESSION: No acute infiltrate. Electronically Signed by John Chau MD 07/18/2019 09:31 A
== END ==
LOC: M ADAMS 11:35
PROVIDERS: ATTEND Nurse Practitioner Family
DX: Z01.818 Encounter for other preprocedural examination (principal); N20.0 Calculus of kidney

== ENCOUNTER 2019-07-22 09:31 | Day surgery (SDC) | payer OTHER ==
[~2019-07-22] VITALS: Ht 160 cm; Wt 75.5 kg
[~2019-07-22 09:31] MED LIST changes: -BACITAB PO; -CIPR-249 PO; +LR 1,000 ML IV ONE
[2019-07-22] MEDS ORDERED: CONRAY-60 60% 50ML VIAL (Q9961) As Ordered ONE (11:46)
[2019-07-22] MEDS ORDERED: ONDANSETRON 4MG/2ML VIAL (J2405) As Ordered ONE (12:09)
[2019-07-22] MEDS ORDERED: MIDAZOLAM INJ 2 MG/2 ML VIAL (J2250) As Ordered ONE (12:09)
[2019-07-22] MEDS ORDERED: METOCLOPRAMIDE INJ 10MG/2ML VIAL (J2765) As Ordered ONE (12:09)
[2019-07-22] MEDS ORDERED: PROPOFOL 200 MG/20 ML VIAL As Ordered ONE (12:09)
[2019-07-22] MEDS ORDERED: ROCURONIUM BROMIDE 50 MG/5 ML VIAL As Ordered ONE (12:09)
[2019-07-22] MEDS ORDERED: SUGAMMADEX SODIUM 500 MG/5 ML VIAL (BRIDION) As Ordered ONE (12:09)
[2019-07-22] MEDS ORDERED: dexameTHASONE 4 MG/ML 1ML VIAL (J1100) As Ordered ONE (12:09)
[2019-07-22] MEDS ORDERED: LIDOCAINE 2% INJ 100 MG/5 ML SDV (FOR ANES.) As Ordered ONE (12:09)
[2019-07-22] MEDS ORDERED: fentaNYL 100 MCG/2 ML INJECTION (J3010) As Ordered ONE ×2 (12:09→12:14)
[2019-07-22] MEDS ORDERED: LIDOCAINE 2% JELLY 6 ML SYRINGE As Ordered ONE (12:11)
[2019-07-22] MEDS ORDERED: ACETAMINOPHEN 1000MG 100ML IV BTL (OFIRMEV) (J0131 PER 10MG) As Ordered ONE (12:40)
[2019-07-22] MEDS ORDERED: KETOROLAC 60 MG/2 ML VIAL (J1885) As Ordered ONE (13:12)
[2019-07-22] MEDS ORDERED: fentaNYL 100 MCG/2 ML INJECTION (J3010) IV PRN (13:45)
[2019-07-22] MEDS ORDERED: ONDANSETRON 4MG/2ML VIAL (J2405) IV PRN (13:45)
[2019-07-22] MEDS ORDERED: PERCOCET 5MG/325MG TAB PO PRN (13:45)
[2019-07-22] MEDS ORDERED: LR 1,000 ML IV SCH (13:45)
--- NOTE | 2019-07-22 13:47 | REP ---
C-ARM VIEWS OF THE ABDOMEN: C-arm views of the abdomen are performed during placement of bilateral ureteral stents. Contrast partially opacifies pelvicalyceal systems bilaterally. There are bilateral ureteral stents placed, proximal end of each stent is coiled in the renal pelvis respectively and the distal ends are coiled in the urinary bladder. 31 seconds fluoroscopy time utilized. Electronically Signed by John Chau MD 07/22/2019 04:21 P
[2019-07-22] MEDS ORDERED: ACETAMINOPHEN TAB 650MG DOSE (2X325MG) PO PRN (14:00)
[2019-07-22 14:55] VITALS: BP 134/79
--- NOTE | 2019-07-23 09:41 | RO ---
DATE OF PROCEDURE: 07/22/2019 PREPROCEDURE DIAGNOSIS: Bilateral kidney stones. POSTPROCEDURE DIAGNOSIS: Bilateral kidney stones. PROCEDURE: Cystoscopy, bilateral ureteroscopy with laser lithotripsy and basket extraction of stones, bilateral retrograde pyelogram with intraoperative interpretation of images, left ureteral stent exchange, right ureteral stent placement. SURGEON: Dr. Alejo Lima WIRE BOUND BOX MACHINE HELPER: None. ANESTHESIA: General. OPERATIVE INDICATIONS: This is a 54-year-old female who was brought to the operating room a few weeks ago for cystoscopy and left ureteral stent placement for an obstructing 1.1 cm left ureteral stone, as well as a urinary tract infection (UTI). Also of note, she had nonobstructing stones in the right kidney. She was brought to the operating room today for treatment. DESCRIPTION OF PROCEDURE: The patient was brought to the operating room, where general anesthesia was induced. Prophylactic antibiotics were infused. She was then placed in the dorsal lithotomy position and prepped and draped in the usual sterile fashion. A rigid cystoscope was then inserted into the urethral meatus and advanced into the bladder. The previously placed stent on the left side was grasped and withdrawn until the distal end was seen protruding through the urethral meatus. I then advanced the wire up the left collecting system and removed the stent. I then went up the left collecting system with a flexible ureteroscope and within the distal ureter the 1 cm stone was seen. The stone was then fragmented into smaller pieces using a 272 micron laser fiber. All the fragments were then removed using a basket. I then examined the more proximal ureter, as well as the kidney and no additional stones were seen. At this point, I shot a retrograde pyelogram and it was notable for mild left hydronephrosis and no extravasation. I then withdrew the ureteroscope and then utilized the wire to advance a #6-Greek x 22-32 cm JJ ureteral stent up the left collecting system. The wire was then removed, and there were adequate curls of the stent in the left renal pelvis and in the bladder. I then advanced the wire up the right collecting system. I then advanced the ureteral access sheath over the wire. I went into the access sheath with the flexible ureteroscope and examined the right sided calices. There was a mid paola that appeared to have a somewhat stenotic infundibulum. Within the paola, the 6 mm stone was seen. The stone was fragmented into smaller pieces using a laser fiber and the fragments were removed using a basket. I examined the rest of the kidney and there was an approximately 2.5 mm stone attached to the wall of the calices. The stone was removed with a basket. A retrograde pyelogram was performed and it was notable for mild right hydronephrosis and no extravasation. I then withdrew the ureteroscope along with the access sheath and no additional stones were seen. I then utilized the wire to advance a #6-Greek x 22-32 cm JJ ureteral stent up into the right collecting system. The wire was removed and there were adequate curls of the stent in the right renal pelvis and in the bladder. The bladder was emptied of all fluid and this marked conclusion of the procedure. The patient was then taken out of the dorsal lithotomy position, awakened from anesthesia, and transported to the recovery room in stable condition. ESTIMATED BLOOD LOSS: 5 mL. COMPLICATIONS: None. SPECIMENS: Kidney stone fragments. PLAN: The patient will followup in the clinic in a few weeks for stent removal. MANUELA
== END 2019-07-22 15:11 | disposition home or self-care (01) ==
LOC: M SDC 09:31
PROVIDERS: ATTEND Urology
DX: N20.0 Calculus of kidney (principal); I10 Essential (primary) hypertension; K44.9 Diaphragmatic hernia without obstruction or gangrene; K21.9 Gastro-esophageal reflux disease without esophagitis; F41.9 Anxiety disorder, unspecified; G43.909 Migraine, unspecified, not intractable, without status migrainosus; Z88.2 Allergy status to sulfonamides; Z79.899 Other long term (current) drug therapy
CPT/HCPCS: 52356; 74420; 82360; 88300; C1769; C2617; J0131; J0690; J1100; J1885; J2250; J2405; J2765; J3010; Q9961

== ENCOUNTER → 2019-07-27 | Outpatient (REF) | payer OTHER ==
[~2019-07-27] MED LIST changes: +BACITAB PO; +CIPR-249 PO; -LR 1,000 ML IV ONE
== END ==
LOC: M SFHCADAM 10:03
PROVIDERS: ATTEND Physician Assistant Medical
DX: R19.5 Other fecal abnormalities (principal)

== ENCOUNTER 2019-08-02 12:45 | Inpatient (IN) | payer OTHER ==
[~2019-08-02] VITALS: Ht 160 cm; Wt 77.2 kg
[~2019-08-02 12:45] MED LIST changes: -BACITAB PO; -CIPR-249 PO
[2019-08-02 13:46] LABS: BASO # 0.1 10^3/uL (0.0-0.2); BASO % 0.2 % (0.0-1.0); HEMATOCRIT 35.1 % (36.0-47.0); HEMOGLOBIN 11.8 g/dl (12.0-15.5); LYMPH # 1.8 10^3/uL (1.5-5.0); LYMPH % 7.7 % (24.0-44.0); MEAN CORPUSCULAR HEMOGLOBIN 31.2 pg (27.0-33.0); MEAN CORPUSCULAR HGB CONC 33.6 g/dl (32.0-36.5); MEAN CORPUSCULAR VOLUME 92.9 fl (80.0-96.0); MONO # 1.7 10^3/uL (0.0-0.8); MONO % 7.6 % (0.0-5.0); NEUTROPHILS % 83.9 % (36.0-66.0); PLATELET COUNT, AUTOMATED 296 10^3/uL (150-450); RED BLOOD COUNT 3.78 10^6/uL (4.00-5.40); WHITE BLOOD COUNT 22.6 10^3/uL (4.0-10.0)
[2019-08-02] MEDS ORDERED: ACETAMINOPHEN 325 MG TAB PO ONE (14:00)
[2019-08-02 14:19] LABS: INFLUENZA A AMPLIFICATION NEGATIVE (NEGATIVE); INFLUENZA B AMPLIFICATION NEGATIVE (NEGATIVE)
[2019-08-02 14:23] LABS: ALBUMIN 3.2 GM/DL (3.2-5.2); CALCIUM LEVEL 9.3 MG/DL (8.5-10.1); CREATININE FOR GFR 1.1 MG/DL (0.55-1.30); GLOMERULAR FILTRATION RATE 55.5 (>51); TOTAL PROTEIN 7.1 GM/DL (6.4-8.2)
[2019-08-02] MEDS ORDERED: NS 2,260 ML in IV 1 EA IV ONE (15:45)
[2019-08-02] MEDS ORDERED: PIPERACILLIN/TAZOBACTAM SOD 4.5 GM in D5W MINI-BAG PLUS 50 ML IV ONE (15:45)
--- NOTE | 2019-08-02 16:17 | REP ---
Portable chest x-ray: Single view. History: Fever. Comparison chest x-ray: July 17, 2019. Findings: The lungs are exposed at a somewhat lesser level of inspiration. No infiltrate is seen. Pleural angles are sharp. Heart size is normal. Pulmonary vasculature is not increased. EKG monitoring electrodes are seen. No significant bony abnormality is seen. Impression: No active disease. Lesser level of inspiration. Electronically Signed by Abelardo Hdz MD 08/02/2019 04:10 P
--- NOTE | 2019-08-02 16:57 | REP ---
CT ABDOMEN AND PELVIS WITHOUT CONTRAST: CT abdomen and pelvis performed without oral or IV contrast. Sagittal and coronal reconstruction images are performed. The visualized lung bases demonstrate mild patchy atelectasis or infiltrate bilaterally. The liver is grossly unremarkable. There are a few gallstones in the dependent portion of the gallbladder without evidence of gallbladder wall edema or biliary dilatation. The spleen is normal in size with no intrinsic abnormality. The adrenals demonstrate no nodule and the pancreas is grossly unremarkable. The kidneys demonstrate multiple subcentimeter calculi bilaterally diffusely. There is no hydroureteronephrosis. There are bilateral renal cysts again seen. There is no abdominal aortic aneurysm. There is no adenopathy. There is no free air or free fluid. No bowel wall thickening is seen. The appendix is normal. There is a small umbilical hernia containing fat as well as a small hiatal hernia. I see no evidence of a pelvic mass. The urinary bladder appears unremarkable. There are degenerative changes of the spine. There are small inguinal hernias bilaterally. IMPRESSION: Mild patchy atelectasis or infiltrate in each lung base. Small gallstones in the gallbladder. There are multiple subcentimeter intrarenal calculi bilaterally with no hydroureteronephrosis. Electronically Signed by John Chau MD 08/05/2019 04:27 P
[2019-08-02] MEDS ORDERED: PERCOCET 5MG/325MG TAB PO PRN (17:15)
[2019-08-02] MEDS ORDERED: ONDANSETRON 4MG/2ML VIAL (J2405) IV PRN (17:15)
--- NOTE | 2019-08-02 17:39 | HPEPDOC ---
General Date of Admission Aug 02, 2019 at 17:02 Date of Service: Aug 02, 2019 Primary Care Physician: STEPHEN PINTO PA-C Attending Physician: SHERWIN VERDUGO DO Chief Complaint The patient is a 54-year-old female admitted with a reason for visit of Pyelonephritis Sepsis. Source: Patient, Family Exam Limitations: No limitations Timing/Duration: Day(s) (2 days) Severity: Moderate Associated Symptoms: Fever, Chills History of Present Illness Patient is 54 years old female with past medical history of nephrolithiasis, medullary sponge kidney presented to the hospital with fever and chills. O 07/22/19 patient had cystoscopy, bilateral ureteroscopy with laser lithotripsy and basket extraction of stones, bilateral retrograde pyelogram . Procedure was done by Dr. Lima. On 07/31/19 stents were removed. On the next day patient started feeling a right flank pain with radiation to the groin area. The pain was associated with fever and chills. Of note patient was recently diagnosed with acute pyelonephritis 07/03/19 secondary to left kidney stone, she received treatment with ceftriaxone. Today patient was found to have fever of 103, leukocytosis of 22.6, lactic acid 1.4, urinalysis showed pyuria. Abdominal CT scan showed multiple subcentimeter intrarenal calculi bilaterally with no hydroureteronephrosis. No urologist coverage till Monday. Home Medications Scheduled Amlodipine Besylate (Amlodipine Besylate) 5 Mg Tablet, 5 MG PO DAILY, (Reported) Multivit-Min/Iron/Folic/Lutein (Centrum Silver Women Tablet) 1 Each Tablet, 1 TAB PO DAILY, (Reported) [place] 3 Polyunsat Fatty Acids (Fish Oil 1,000 mg Softgel) 1,000 Mg Capsule, 1,000 MG PO DAILY, (Reported) Vitamin B Complex (Vitamin B Complex) 1 Each Tablet, 1 TAB PO DAILY, (Reported) Scheduled PRN Acetaminophen (Acetaminophen) 500 Mg Tablet, 1,000 MG PO Q6H PRN for pain, (Rep orted) Allergies Coded Allergies: Sulfa (Sulfonamide Antibiotics) (Verified Allergy, Unknown, CHILDHOOD ALLERGY, 08/02/19) Past Medical History Medical History Hypertension, medullary sponge kidney, nephrolithiasis Family History Mother had diabetes, father from melanoma Social History * Smoker: Denies Alcohol: Denies Drugs: denies A-FIB/CHADSVASC A-FIB History Current/History of A-Fib/PAF?: No Current PO Anticoag Therapy: No Review of Systems Constitutional: Reports: Chills, Fever, Malaise Eyes: Denies: Pain, Vision change ENT: Denies: Head Aches, Ear Pain Skin: Denies: Rash, Lesions Pulmonary: Denies: Dyspnea, Cough Cardiovascular: Denies: Chest Pain, Palpitations Gastrointestinal: Reports: Nausea, Abdominal Pain; Denies: Vomiting Genitourinary: Reports: Dysuria, Frequency Hematologic: Denies: Bruising, Bleeding Excessively Endocrine: Denies: Polydipsia Musculoskeletal: Denies: Neck Pain, Back Pain Neurological: Denies: Weakness, Numbness Psych: Denies: Mood Normal, Anxiety Physical Examination General Exam: Positive: Alert, Cooperative Eye Exam: Positive: PERRLA, Conjunctiva & lids normal ENT Exam: Positive: Atraumatic Neck Exam: Positive: Supple; Negative: JVD Chest Exam: Positive: Clear to auscultation Heart Exam: Positive: Tachycardic Telemetry: Positive: Tachycardia Abdomen Exam: Positive: BS Hypoactive Extremity Exam: Negative: Clubbing, Cyanosis Skin Exam: Positive: Nl turgor and temperature Neuro Exam: Positive: Normal Gait, Strength at 5/5 X4 ext, Cranial Nerves 3-12 NL Psych Exam: Positive: Mental status NL Vital Signs Vital Signs Date Time Temp Pulse Resp B/P (MAP) Pulse Ox O2 Delivery O2 Flow Rate FiO2 08/02/19 16:30 111 121/81 (94) 94 Room Air 08/02/19 15:27 99.7 08/02/19 12:47 18 Laboratory Data Labs 24H Laboratory Tests 2 08/02/19 13:20: Immature Granulocyte % (Auto) 0.6, White Blood Count 22.6H, Red Blood Count 3.78L, Hemoglobin 11.8L, Hematocrit 35.1L, Mean Corpuscular Volume 92.9, Mean Corpuscular Hemoglobin 31.2, Mean Corpuscular Hemoglobin Concent 33.6, Red Cell Distribution Width 13.8, Platelet Count 296, Neutrophils (%) (Auto) 83.9H, Lymphocytes (%) (Auto) 7.7L, Monocytes (%) (Auto) 7.6H, Eosinophils (%) (Auto) 0.0, Basophils (%) (Auto) 0.2, Neutrophils # (Auto) 19.0H, Lymphocytes # (Auto) 1.8, Monocytes # (Auto) 1.7H, Eosinophils # (Auto) 0.0, Basophils # (Auto) 0.1, Nucleated Red Blood Cells % (auto) 0.0, Urine Color YELLOW, Urine Appearance CLOUDYH, Urine pH 6.0, Urine Specific [place] 1.013, Urine Protein 2+H, Urine Glucose (UA) NEGATIVE, Urine Ketones TRACEH, Urine Blood 2+H, Urine Nitrite POSITIVEH, Urine Bilirubin NEGATIVE, Urine Urobilinogen 0.2, Urine Leukocyte Esterase 3+H, Urine WBC (Auto) TNTCH, Urine RBC (Auto) 36H, Urine Hyaline Casts (Auto) 0, Urine Bacteria (Auto) 2+H, Urine Squamous Epithelial Cells 4, Urine Mucus (Auto) SMALL, Urine Sperm (Auto) , Anion Gap 11, Glomerular Filtration Rate 55.5, Lactic Acid Level 1.4, Blood Urea Nitrogen 14, Creatinine 1.10, Sodium Level 135L, Potassium Level 4.0, Chloride Level 101, Carbon Dioxide Level 23, Calcium Level 9.3, Aspartate Amino Transf (AST/SGOT) 36, Alanine Aminotransferase (ALT/SGPT) 68, Alkaline Phosphatase 119H, Total Bilirubin 1.0, Total Protein 7.1, Albumin 3.2, Albumin/Globulin Ratio 0.82L, Influenza Type A (RT-PCR) NEGATIVE, Influenza Type B (RT-PCR) NEGATIVE CBC/BMP Laboratory Tests 08/02/19 13:20 Red Blood Count 3.78 L, Mean Corpuscular Volume 92.9, Mean Corpuscular Hemoglobin 31.2, Mean Corpuscular Hemoglobin Concent 33.6, Red Cell Distribution Width 13.8, Neutrophils (%) (Auto) 83.9 H, Lymphocytes (%) (Auto) 7.7 L, Monocytes (%) (Auto) 7.6 H, Eosinophils (%) (Auto) 0.0, Basophils (%) (Auto) 0.2, Neutrophils # (Auto) 19.0 H, Lymphocytes # (Auto) 1.8, Monocytes # (Auto) 1.7 H, Eosinophils # (Auto) 0.0, Basophils # (Auto) 0.1, Calcium Level 9.3, Aspartate Amino Transf (AST/SGOT) 36, Alanine Aminotransferase (ALT/SGPT) 68, Alkaline Phosphatase 119 H, Total Bilirubin 1.0, Total Protein 7.1, Albumin 3.2 Microbiology Microbiology 08/02/19 Blood Culture, Received Pending 08/02/19 Urine Culture, Received Pending 08/02/19 Blood Culture, Received Pending Assessment/Plan This is a 54 y/o F w/ a PMH significant for HTN, medullary sponge kidney, and kidney stones, presenting to the ER w/ a fever, chills and right flank pain. Problems (1) Sepsis Status: Acute Problem Text: Secondary to acute pyelonephritis, patient had a recent bilateral stent removal Previous urine culture was positive for Escherichia coli IV fluid Blood culture, urine culture Continue Zosyn IV (2) Pyelonephritis Status: Acute Problem Text: Acute pyelonephritis Patient had bilateral stents removal 2 days ago Appreciate/agree with urologist consult Continue treatment for antibiotics, IV hydration (3) Hypertension Status: Chronic Problem Text: Continue home meds (4) Fever Status: Acute Problem Text: Secondary to sepsis due to UTI Tylenol (5) Leukocytosis Status: Acute Problem Text: See above Plan / VTE VTE Prophylaxis Ordered?: Yes SHERWIN VERDUGO DO Aug 02, 2019 17:39
[2019-08-02 17:42] LABS: INR 1.2; PROTHROMBIN TIME 14.9 SECONDS (11.8-14.0)
[2019-08-02 17:43] LABS: PARTIAL THROMBOPLASTIN TIME 33.6 SECONDS (25.0-38.4)
[2019-08-02 17:54] LABS: C REACTIVE PROTEIN QUANTITATIV 21.3 MG/DL (0.00-0.30)
[2019-08-02] MEDS: NS 1,000 ML IV SCH (18:33)
--- NOTE | 2019-08-02 20:14 | ECGEPIP ---
[facility] - ED Test Date: 2019-08-02 Pat Name: ASHELY ESPINOZA Department: Room: - Gender: Female Legal Billing Specialist: flako : [id number] Requested By: Kely Wadsworth Order Number: [id number] Reading MD: Cheng Landis Measurements Intervals [place] Rate: 66 P: 46 OK: 186 QRS: 66 QRSD: 147 T: 9 QT: 414 QTc: 434 Interpretive Statements SINUS RHYTHM RIGHT BUNDLE BRANCH BLOCK, NEW COMPARED TO 07/03/19 Electronically Signed on 08-02-2019 20:14:20 EDT by Cheng Landis
[2019-08-02] MEDS ORDERED: PANTOPRAZOLE 20 MG TAB PO SCH (21:00)
[2019-08-02] MEDS: PIPERACILLIN/TAZOBACTAM SOD 3.375 GM in D5W MINI-BAG PLUS 50 ML IV SCH (21:54)
[2019-08-02] MEDS: HEPARIN SOD (PORCINE) 5000 UNITS/ML VIAL SC SCH (21:54)
[2019-08-02 22:00] VITALS: BP 125/85
[2019-08-02] MEDS: ACETAMINOPHEN TAB 650MG DOSE (2X325MG) PO PRN (22:02)
[2019-08-03 02:00] VITALS: BP 125/85
[2019-08-03] MEDS: NS 1,000 ML IV SCH (02:00)
[2019-08-03] MEDS: PIPERACILLIN/TAZOBACTAM SOD 3.375 GM in D5W MINI-BAG PLUS 50 ML IV SCH ×4 (04:16→21:22)
[2019-08-03] MEDS: ACETAMINOPHEN TAB 650MG DOSE (2X325MG) PO PRN ×2 (04:22→14:50)
[2019-08-03 06:12] VITALS: BP 106/72
[2019-08-03 07:20] LABS: ALBUMIN 2.5 GM/DL (3.2-5.2); ALT/SGPT 56 U/L (12-78); BLOOD UREA NITROGEN 10 MG/DL (7-18); CALCIUM LEVEL 8.4 MG/DL (8.5-10.1); CARBON DIOXIDE LEVEL 24 MEQ/L (21-32); CHLORIDE LEVEL 108 MEQ/L (98-107); CREATININE FOR GFR 0.96 MG/DL (0.55-1.30); GLOMERULAR FILTRATION RATE > 60.0 (>51); GLUCOSE, FASTING 135 MG/DL (70-100); POTASSIUM SERUM 3.2 MEQ/L (3.5-5.1); SODIUM LEVEL 140 MEQ/L (136-145); TOTAL PROTEIN 6.5 GM/DL (6.4-8.2)
[2019-08-03] MEDS ORDERED: amLODIPine 5 MG TAB PO SCH (09:00)
[2019-08-03] MEDS: HEPARIN SOD (PORCINE) 5000 UNITS/ML VIAL SC SCH ×2 (10:26→21:22)
[2019-08-03 10:27] VITALS: BP 112/75
[2019-08-03 14:00] VITALS: BP 112/75
--- NOTE | 2019-08-03 15:52 | IPNPDOC ---
Subjective Date Seen The patient was seen on 08/03/19. Subjective Chief Complaint/HPI at baseline MS Constitutional: Reports: Fever; Denies: Chills Eyes: Denies: Pain ENT: Denies: Head Aches Skin: Denies: Rash Pulmonary: Denies: Dyspnea, Cough Cardiovascular: Denies: Chest Pain Gastrointestinal: Denies: Nausea, Vomiting Objective Physical Examination General Exam: Positive: Alert, Cooperative Eye Exam: Positive: PERRLA, Conjunctiva & lids normal ENT Exam: Positive: Atraumatic Neck Exam: Positive: Supple; Negative: JVD Chest Exam: Positive: Clear to auscultation Heart Exam: Positive: Tachycardic Telemetry: Positive: Tachycardia Abdomen Exam: Positive: BS Hypoactive Extremity Exam: Negative: Clubbing, Cyanosis Skin Exam: Positive: Nl turgor and temperature Neuro Exam: Positive: Normal Gait, Strength at 5/5 X4 ext, Cranial Nerves 3-12 NL Psych Exam: Positive: Mental status NL Assessment /Plan Problems (1) SIRS (systemic inflammatory response syndrome) Status: Acute Problem Text: D2 Zosyn/D1 cipro presumed 2 PN given 07/22: : Cystoscopy, bilateral ureteroscopy with laser lithotripsy and basket extraction of stones, bilateral retrograde pyelogram with intraoperative interpretation of images, left ureteral stent exchange, right ureteral stent placement-Clarence 08/03 Tm 101.5 400 08/02 WBC 23K 08/03 - GI PCR 08/02 BCX2 P 08/02 UCX P 08/02 CT AP: Mild patchy atelectasis or infiltrate in each lung base. Small gallstones in the gallbladder. There are multiple subcentimeter intrarenal calculi bilaterally with no hydroureteronephrosis. 08/02 CXR NAD 07/03/19 UCX E coli >100K pansens (2) Hypertension Status: Chronic Problem Text: 08/03 held 2 SBP 100, sepsis 08/02 HD amlo 5 1800 given (3) Nephrolithiasis Status: Chronic (4) Chronic diarrhea Status: Chronic Problem Text: ? partial cause of stones Plan/VTE VTE Prophylaxis Ordered?: Yes VS, I&O, 24H, Fishbone Vital Signs/I&O Vital Signs Date Time Temp Pulse Resp B/P (MAP) Pulse Ox O2 Delivery O2 Flow Rate FiO2 08/03/19 10:27 119 112/75 08/03/19 07:38 98.9 08/03/19 06:12 16 90 08/02/19 17:15 Room Air I&O- Last 24 Hours up to 6 AM 08/03/19 06:00 Intake Total 3250 ml Output Total 1850 ml Balance 1400 ml Laboratory Data 24H LABS Laboratory Tests 2 08/02/19 17:10: Prothrombin Time 14.9H, Prothromb Time International Ratio 1.20, Activated Partial Thromboplast Time 33.6 08/03/19 05:45: Anion Gap 8, Glomerular Filtration Rate > 60.0, Blood Urea Nitrogen 10, Cre atinine 0.96, Sodium Level 140, Potassium Level 3.2L, Chloride Level 108H, Carbon Dioxide Level 24, Calcium Level 8.4L, Aspartate Amino Transf (AST/SGOT) 26, Alanine Aminotransferase (ALT/SGPT) 56, Alkaline Phosphatase 106, Total Bilirubin 1.0, Total Protein 6.5, Albumin 2.5#L, Magnesium Level 2.0, Albumin/Globulin Ratio 0.63L CBC/BMP Laboratory Tests 08/03/19 05:45 Calcium Level 8.4 L, Aspartate Amino Transf (AST/SGOT) 26, Alanine Aminotransferase (ALT/SGPT) 56, Alkaline Phosphatase 106, Total Bilirubin 1.0, Total Protein 6.5, Albumin 2.5 #L Microbiology Microbiology 08/03/19 Gastrointestinal Tract Panel (PCR) - Final, Complete 08/02/19 Blood Culture - Preliminary, Resulted No growth after 24 hours . All specim... 08/02/19 Urine Culture, Received Pending 08/02/19 Blood Culture - Preliminary, Resulted No growth after 24 hours . All specim... Demarcus Lezama M.D. Aug 03, 2019 15:52
[2019-08-03] MEDS: PANTOPRAZOLE 20 MG TAB PO SCH (16:23)
[2019-08-03 17:12] LABS: ALBUMIN 2.5 GM/DL (3.2-5.2); BLOOD UREA NITROGEN 10 MG/DL (7-18); CALCIUM LEVEL 8.1 MG/DL (8.5-10.1); CARBON DIOXIDE LEVEL 25 MEQ/L (21-32); CHLORIDE LEVEL 109 MEQ/L (98-107); CREATININE FOR GFR 0.98 MG/DL (0.55-1.30); GLOMERULAR FILTRATION RATE > 60.0 (>51); GLUCOSE, FASTING 136 MG/DL (70-100); MAGNESIUM LEVEL 2.2 MG/DL (1.8-2.4); PHOSPHORUS LEVEL 1.9 MG/DL (2.5-4.9); POTASSIUM SERUM 3.3 MEQ/L (3.5-5.1); SODIUM LEVEL 141 MEQ/L (136-145)
[2019-08-03 17:16] LABS: BASO % 0.3 % (0.0-1.0); EOS % 0.2 % (0.0-3.0); HEMATOCRIT 30.2 % (36.0-47.0); HEMOGLOBIN 10.1 g/dl (12.0-15.5); LYMPH # 2.1 10^3/uL (1.5-5.0); LYMPH % 14.1 % (24.0-44.0); MEAN CORPUSCULAR HEMOGLOBIN 31.5 pg (27.0-33.0); MEAN CORPUSCULAR HGB CONC 33.4 g/dl (32.0-36.5); MEAN CORPUSCULAR VOLUME 94.1 fl (80.0-96.0); MONO % 6.5 % (0.0-5.0); NEUTROPHILS # 11.8 10^3/uL (1.5-8.5); NEUTROPHILS % 78.4 % (36.0-66.0); PLATELET COUNT, AUTOMATED 285 10^3/uL (150-450); RED BLOOD COUNT 3.21 10^6/uL (4.00-5.40)
[2019-08-03] MEDS: SODIUM CHLORIDE NASAL 0.65% SPRAY BTL (OCEAN) PRN ×2 (17:39→23:00)
[2019-08-03] MEDS: CIPROFLOXACIN 400 MG in IV 1 EA IV SCH (18:24)
[2019-08-03 22:00] VITALS: BP 110/75
[2019-08-04 02:00] VITALS: BP 116/74
[2019-08-04] MEDS: PIPERACILLIN/TAZOBACTAM SOD 3.375 GM in D5W MINI-BAG PLUS 50 ML IV SCH ×3 (03:12→15:39)
[2019-08-04] MEDS: CIPROFLOXACIN 400 MG in IV 1 EA IV SCH ×2 (04:48→17:02)
[2019-08-04 06:00] VITALS: BP 128/68
[2019-08-04 06:59] LABS: BASO % 0.3 % (0.0-1.0); EOS # 0.1 10^3/uL (0.0-0.5); EOS % 0.6 % (0.0-3.0); HEMATOCRIT 31.2 % (36.0-47.0); HEMOGLOBIN 10.6 g/dl (12.0-15.5); LYMPH % 19.1 % (24.0-44.0); MEAN CORPUSCULAR HEMOGLOBIN 31.5 pg (27.0-33.0); MEAN CORPUSCULAR VOLUME 92.6 fl (80.0-96.0); MONO # 0.8 10^3/uL (0.0-0.8); MONO % 7.7 % (0.0-5.0); NEUTROPHILS # 7.4 10^3/uL (1.5-8.5); NEUTROPHILS % 71.5 % (36.0-66.0); PLATELET COUNT, AUTOMATED 305 10^3/uL (150-450); RED BLOOD COUNT 3.37 10^6/uL (4.00-5.40); WHITE BLOOD COUNT 10.3 10^3/uL (4.0-10.0)
[2019-08-04 07:17] LABS: ALBUMIN 2.6 GM/DL (3.2-5.2); ALT/SGPT 93 U/L (12-78); BILIRUBIN,TOTAL 0.5 MG/DL (0.2-1.0); BLOOD UREA NITROGEN 8 MG/DL (7-18); CALCIUM LEVEL 8.7 MG/DL (8.5-10.1); CARBON DIOXIDE LEVEL 25 MEQ/L (21-32); CHLORIDE LEVEL 110 MEQ/L (98-107); CREATININE FOR GFR 1.01 MG/DL (0.55-1.30); GLOMERULAR FILTRATION RATE > 60.0 (>51); GLUCOSE, FASTING 119 MG/DL (70-100); POTASSIUM SERUM 3.2 MEQ/L (3.5-5.1); SODIUM LEVEL 143 MEQ/L (136-145); TOTAL PROTEIN 6.4 GM/DL (6.4-8.2)
[2019-08-04] MEDS: HEPARIN SOD (PORCINE) 5000 UNITS/ML VIAL SC SCH ×2 (10:26→21:12)
[2019-08-04] MEDS: SODIUM CHLORIDE NASAL 0.65% SPRAY BTL (OCEAN) PRN ×2 (10:32→14:48)
[2019-08-04 14:00] VITALS: BP 123/87
[2019-08-04] MEDS: PANTOPRAZOLE 20 MG TAB PO SCH (16:42)
--- NOTE | 2019-08-04 16:50 | IPNPDOC ---
Subjective Date Seen The patient was seen on 08/04/19. Subjective Chief Complaint/HPI minimla abdominal pain Constitutional: Reports: Fever; Denies: Chills Eyes: Denies: Pain Skin: Denies: Rash, Lesions Pulmonary: Denies: Dyspnea Cardiovascular: Denies: Chest Pain, Palpitations Gastrointestinal: Denies: Nausea, Vomiting Genitourinary: Denies: Dysuria Objective Physical Examination General Exam: Positive: Alert, Cooperative Eye Exam: Positive: PERRLA, Conjunctiva & lids normal ENT Exam: Positive: Atraumatic Neck Exam: Positive: Supple; Negative: JVD Chest Exam: Positive: Clear to auscultation Heart Exam: Positive: Tachycardic Telemetry: Positive: Tachycardia Abdomen Exam: Positive: BS Hypoactive Extremity Exam: Negative: Clubbing, Cyanosis Skin Exam: Positive: Nl turgor and temperature Neuro Exam: Positive: Normal Gait, Strength at 5/5 X4 ext, Cranial Nerves 3-12 NL Psych Exam: Positive: Mental status NL Assessment /Plan Problems (1) SIRS (systemic inflammatory response syndrome) Status: Acute Problem Text: D3 Zosyn/D2 cipro presumed 2 PN given 07/22: : Cystoscopy, bilateral ureteroscopy with laser lithotripsy and basket extraction of stones, bilateral retrograde pyelogram with intraoperative interpretation of images, left ureteral stent exchange, right ureteral stent placement-Clarence 08/04 Tm 100 08/04 400, WBC 10.3; dc Zosyn 08/03 Tm 101.5 400 08/02 WBC 23K 08/03 - GI PCR 08/02 BCX2 NG 08/02 UCX E coli pansens 08/02 CT AP: Mild patchy atelectasis or infiltrate in each lung base. Small gallstones in the gallbladder. There are multiple subcentimeter intrarenal calculi bilaterally with no hydroureteronephrosis. 08/02 CXR NAD 07/03/19 UCX E coli >100K pansens (2) Hypertension Status: Chronic Problem Text: 08/03 held 2 SBP 100, sepsis 08/02 HD amlo 5 1800 given (3) Nephrolithiasis Status: Chronic (4) Chronic diarrhea Status: Chronic Problem Text: ? partial cause of stones - GI PCR TTG and IBC panel P (5) Hepatitis Status: Acute Problem Text: favor drug-induced, pip/saran more likely given only 1 dose cipro received before elevation; therefore, held 08/04 51/93/154 Plan/VTE VTE Prophylaxis Ordered?: Yes VS, I&O, 24H, Fishbone Vital Signs/I&O Vital Signs Date Time Temp Pulse Resp B/P (MAP) Pulse Ox O2 Delivery O2 Flow Rate FiO2 08/04/19 14:00 99.5 102 18 123/87 (99) 95 08/02/19 17:15 Room Air I&O- Last 24 Hours up to 6 AM 08/04/19 06:00 Intake Total 2180 ml Output Total 3650 ml Balance -1470 ml Laboratory Data 24H LABS Laboratory Tests 2 08/04/19 06:27: Immature Granulocyte % (Auto) 0.8, White Blood Count 10.3H, Red Blood Count 3.37L, Hemoglobin 10.6L, Hematocrit 31.2L, Mean Corpuscular Volume 92.6, Mean Corpuscular Hemoglobin 31.5, Mean Corpuscular Hemoglobin Concent 34.0, Red Cell Distribution Width 13.6, Platelet Count 305, Neutrophils (%) (Auto) 71.5H, Ly mphocytes (%) (Auto) 19.1L, Monocytes (%) (Auto) 7.7H, Eosinophils (%) (Auto) 0.6, Basophils (%) (Auto) 0.3, Neutrophils # (Auto) 7.4, Lymphocytes # (Auto) 2.0, Monocytes # (Auto) 0.8, Eosinophils # (Auto) 0.1, Basophils # (Auto) 0.0, Nucleated Red Blood Cells % (auto) 0.0, Anion Gap 8, Glomerular Filtration Rate > 60.0, Blood Urea Nitrogen 8, Creatinine 1.01, Sodium Level 143, Potassium Level 3.2L, Chloride Level 110H, Carbon Dioxide Level 25, Calcium Level 8.7, Aspartate Amino Transf (AST/SGOT) 51H, Alanine Aminotransferase (ALT/SGPT) 93H, Alkaline Phosphatase 154H, Total Bilirubin 0.5, Total Protein 6.4, Albumin 2.6L, Albumin/Globulin Ratio 0.68L CBC/BMP Laboratory Tests 08/04/19 06:27 Red Blood Count 3.37 L, Mean Corpuscular Volume 92.6, Mean Corpuscular Hemoglobi n 31.5, Mean Corpuscular Hemoglobin Concent 34.0, Red Cell Distribution Width 13.6, Neutrophils (%) (Auto) 71.5 H, Lymphocytes (%) (Auto) 19.1 L, Monocytes (%) (Auto) 7.7 H, Eosinophils (%) (Auto) 0.6, Basophils (%) (Auto) 0.3, Neutrophils # (Auto) 7.4, Lymphocytes # (Auto) 2.0, Monocytes # (Auto) 0.8, Eosinophils # (Auto) 0.1, Basophils # (Auto) 0.0, Calcium Level 8.7, Aspartate Amino Transf (AST/SGOT) 51 H, Alanine Aminotransferase (ALT/SGPT) 93 H, Alkaline Phosphatase 154 H, Total Bilirubin 0.5, Total Protein 6.4, Albumin 2.6 L Microbiology Microbiology 08/03/19 Gastrointestinal Tract Panel (PCR) - Final, Complete 08/02/19 Blood Culture - Preliminary, Resulted No Growth after 48 hours. All Specime... 08/02/19 Urine Culture - Final, Complete Escherichia Coli 08/02/19 Blood Culture - Preliminary, Resulted No Growth after 48 hours. All Specime... Demarcus Lezama M.D. Aug 04, 2019 16:50
[2019-08-04] MEDS ORDERED: POTASSIUM CHLORIDE 10 MEQ SR TABLET PO ONE ×2 (19:00→21:00)
[2019-08-04 22:00] VITALS: BP 130/90
[2019-08-05 02:00] VITALS: BP 133/93
[2019-08-05] MEDS: CIPROFLOXACIN 400 MG in IV 1 EA IV SCH (05:39)
[2019-08-05 06:00] VITALS: BP 129/93
[2019-08-05 06:12] LABS: BASO % 0.5 % (0.0-1.0); EOS # 0.1 10^3/uL (0.0-0.5); EOS % 1.5 % (0.0-3.0); LYMPH # 2.2 10^3/uL (1.5-5.0); LYMPH % 25.9 % (24.0-44.0); MEAN CORPUSCULAR HGB CONC 33.3 g/dl (32.0-36.5); MONO # 0.8 10^3/uL (0.0-0.8); MONO % 9.2 % (0.0-5.0); NEUTROPHILS # 5.3 10^3/uL (1.5-8.5); NEUTROPHILS % 62.1 % (36.0-66.0); PLATELET COUNT, AUTOMATED 337 10^3/uL (150-450); RED BLOOD COUNT 3.55 10^6/uL (4.00-5.40); WHITE BLOOD COUNT 8.5 10^3/uL (4.0-10.0)
[2019-08-05 06:35] LABS: ALBUMIN 2.6 GM/DL (3.2-5.2); ALT/SGPT 89 U/L (12-78); BILIRUBIN,TOTAL 0.3 MG/DL (0.2-1.0); BLOOD UREA NITROGEN 9 MG/DL (7-18); CALCIUM LEVEL 9.1 MG/DL (8.5-10.1); CARBON DIOXIDE LEVEL 26 MEQ/L (21-32); CHLORIDE LEVEL 109 MEQ/L (98-107); CREATININE FOR GFR 1.02 MG/DL (0.55-1.30); GLOMERULAR FILTRATION RATE > 60.0 (>51); GLUCOSE, FASTING 112 MG/DL (70-100); POTASSIUM SERUM 3.6 MEQ/L (3.5-5.1); SODIUM LEVEL 144 MEQ/L (136-145); TOTAL PROTEIN 7.2 GM/DL (6.4-8.2)
[2019-08-05] MEDS: HEPARIN SOD (PORCINE) 5000 UNITS/ML VIAL SC SCH (08:57)
[2019-08-05] MEDS ORDERED: BACITAB PO (09:14)
[2019-08-05] MEDS ORDERED: CIPR-249 PO (09:14)
--- NOTE | 2019-08-05 10:17 | DSES ---
DATE OF ADMISSION: 08/02/2019 DATE OF DISCHARGE: PRIMARY CARE PROVIDER: Lise Poe PA-C ATTENDING PHYSICIAN: Dayron Dunham MD HISTORY OF PRESENT ILLNESS: This is a 54-year-old female who is status post cystoscopy, bilateral ureteroscopy with laser lithotripsy and basket extraction of stones, subsequent removal of stents on 07/31/2019, who presented to [facility] on 08/02/2019 for complaints of a fever, noted leukocytosis and pyuria in her urine. CT scan showed multiple subcentimeter intrarenal calculi bilaterally without hydronephrosis. The patient was subsequently admitted and family medicine service managed the patient's hospitalization. HOSPITAL COURSE: The patient was placed on Zosyn empirically due to prior culture positive for E. Coli. The patient's LFTs did elevate and she was transitioned over to ciprofloxacin with improvement of her LFTs. The patient did have some hypokalemia with potassium level of 3.2. This was subsequently replaced and her level today is 3.6. The patient's magnesium has remained stable. Most recent LFTs show an AST of 39 and an ALT of 89, alkaline phosphatase of 147. Fevers have continued to improve. Highest temperature in the last 24 hours was 99.5, blood pressures have remained stable throughout hospitalization and the patient has not required any oxygen. IMAGING: Includes chest x-ray and CT of the abdomen and pelvis. Results have already been stated. CONSULTATIONS: None. PROCEDURES: None. On physical examination today vital signs are stable. She is afebrile. HEENT: Neck is supple without lymphadenopathy or jugular venous distention (JVD). CARDIOVASCULAR: Heart rate and rhythm are regular. PULMONARY: Lungs are clear. ABDOMEN: Soft and nontender with positive bowel sounds times all four quadrants. There is no CVA tenderness. EXTREMITIES: Bilateral lower extremities are without any edema. Positive pedal pulses bilaterally. NEURO: The patient is alert and oriented times three. ASSESSMENT/DISCHARGE DIAGNOSES: 1. Sepsis secondary to acute pyelonephritis with recent stent removal. 2. Pyelonephritis. 3. Hypokalemia. SECONDARY DIAGNOSIS: Hypertension. PLAN: Patient will be discharged to home. She will finish a full seven day course of ciprofloxacin. She was also placed on Bacid for probiotic use. Other medications include: - Tylenol 1000 mg by mouth every 6 hours as needed for pain - amlodipine besylate 5 mg by mouth daily - multivitamin one tablet daily - omega 3 fatty acids 1000 mg daily - vitamin B complex one daily The patient is discharged in stable and satisfactory condition with no further questions at the time of discharge. MTDD
== END 2019-08-05 11:17 | disposition home or self-care (01) | DRG 872 ==
LOC: M ED 12:45 → M ED INP 17:02 → M MSPAV 18:03
PROVIDERS: ADMIT Internal Medicine; ATTEND Family Medicine
DX: A41.9 Sepsis, unspecified organism (principal); N10 Acute pyelonephritis; Q61.5 Medullary cystic kidney; E87.6 Hypokalemia; I10 Essential (primary) hypertension; N20.0 Calculus of kidney; Z79.899 Other long term (current) drug therapy; Z88.2 Allergy status to sulfonamides; R19.7 Diarrhea, unspecified; K75.9 Inflammatory liver disease, unspecified

== ENCOUNTER → 2019-08-15 | Outpatient (REF) | payer OTHER ==
[~2019-08-15] MED LIST changes: +BACITAB PO; +CIPR-249 PO
[2019-08-15 19:41] LABS: HEMATOCRIT 37.8 % (36.0-47.0); HEMOGLOBIN 12.5 g/dl (12.0-15.5); MEAN CORPUSCULAR HEMOGLOBIN 31.3 pg (27.0-33.0); MEAN CORPUSCULAR HGB CONC 33.1 g/dl (32.0-36.5); MEAN CORPUSCULAR VOLUME 94.7 fl (80.0-96.0); PLATELET COUNT, AUTOMATED 480 10^3/uL (150-450); RED BLOOD COUNT 3.99 10^6/uL (4.00-5.40); WHITE BLOOD COUNT 8.2 10^3/uL (4.0-10.0)
[2019-08-15 19:58] LABS: HEMOGLOBIN A1c 6.8 %
[2019-08-15 20:00] LABS: ALT/SGPT 39 U/L (12-78); BLOOD UREA NITROGEN 17 MG/DL (7-18); CALCIUM LEVEL 9.1 MG/DL (8.5-10.1); CARBON DIOXIDE LEVEL 27 MEQ/L (21-32); CHLORIDE LEVEL 106 MEQ/L (98-107); CREATININE FOR GFR 0.98 MG/DL (0.55-1.30); GLOMERULAR FILTRATION RATE > 60.0 (>51); GLUCOSE, FASTING 101 MG/DL (70-100); POTASSIUM SERUM 3.8 MEQ/L (3.5-5.1); SODIUM LEVEL 141 MEQ/L (136-145)
[2019-08-15 20:01] LABS: ALBUMIN 3.7 GM/DL (3.2-5.2); BILIRUBIN,TOTAL 0.2 MG/DL (0.2-1.0); TOTAL PROTEIN 7.3 GM/DL (6.4-8.2)
== END ==
LOC: M LABSMT 14:29
PROVIDERS: ATTEND Urology
DX: K76.0 Fatty (change of) liver, not elsewhere classified (principal); N20.0 Calculus of kidney; N12 Tubulo-interstitial nephritis, not specified as acute or chronic; R73.01 Impaired fasting glucose
CPT/HCPCS: 80053; 83036; 85027; 87088; 87186; 90471; 90682; G0463

== ENCOUNTER → 2019-10-25 | Outpatient (REF) | payer OTHER | LOC: M SFHCADAM 11:27 | PROVIDERS: ATTEND Physician Assistant | DX: Z53.9 Procedure and treatment not carried out, unspecified reason (principal) ==

== ENCOUNTER → 2019-10-28 | Outpatient (REF) | payer OTHER ==
[2019-10-28 19:39] LABS: C REACTIVE PROTEIN QUANTITATIV < 0.30 MG/DL (0.00-0.30); MAGNESIUM LEVEL 2.4 MG/DL (1.8-2.4); RHEUMATOID FACTOR QUANT < 10.0 IU/ML (<15.0)
[2019-10-28 19:49] LABS: VITAMIN B12 LEVEL 636 PG/ML
[2019-10-28 19:50] LABS: FOLATE > 24.0 NG/ML
[2019-11-01 00:06] LABS: ANA (HEP2) Negative (.); Lyme Disease IgG/IgM Antibodie <0.91 ISR (0.00-0.90); Lyme Disease IgM Ab Quantitati <0.80 index (0.00-0.79)
== END ==
LOC: M SFHCADAM 14:28
PROVIDERS: ATTEND Physician Assistant
DX: R29.898 Other symptoms and signs involving the musculoskeletal system (principal); K21.9 Gastro-esophageal reflux disease without esophagitis

== ENCOUNTER → 2019-11-29 | Outpatient (CLI) | payer OTHER ==
--- NOTE | 2019-11-29 16:51 | REP ---
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 The right kidney measures 11.05 x 1 x 5.3 cm. The left kidney measures 10.0 x 5.4-4.8 cm. The renal medullaris are significantly echogenic bilaterally, consistent with the clinical history of medullary sponge kidneys. There is no hydronephrosis. No solid renal masses are identified. There are two right renal cysts, one at the mid pole laterally measuring 2.6 cm and the other at the upper pole measuring 1.0 cm. There are too left renal calculi with the upper pole medially measuring 1.4 cm and the other at the mid pole laterally measuring 0.8 cm. Impression: Markedly echogenic renal medulla bilaterally compatible with the clinical history of medullary sponge kidneys. There are bilateral renal cortical cysts as described. There is no hydronephrosis. No renal solid masses. Bladder: There is no focal or diffuse bladder wall thickening. The pre void bladder volume is 102.3 milliliters. The postvoid bladder volume is 44 ml. The postvoid residual is 4%. With color Doppler assessment there are bilateral ureteral jets. Impression: 44% postvoid residual. Otherwise, negative bladder ultrasound. Electronically Signed by John Tee MD 11/29/2019 04:43 P
== END ==
LOC: M RAD 14:12
PROVIDERS: ATTEND Nurse Practitioner Family
DX: N28.1 Cyst of kidney, acquired (principal); N39.0 Urinary tract infection, site not specified

== ENCOUNTER → 2019-12-03 | Outpatient (CLI) | payer OTHER ==
--- NOTE | 2019-12-04 04:06 | REP ---
Clinical: Splenic artery aneurysm. Comparison: CT dated 08/02/2019. Technique: Real time euceda scale and color ultrasound examination using curved array transducer. Findings: Ultrasound examination of the left upper quadrant demonstrates normal contour, size, echogenicity to the spleen (splenic index = 309). The small splenic artery aneurysm identified on CT is not visualized by ultrasound and vascularity to the spleen appears essentially normal. The left kidney is normal in reniform shape with mild cortical thinning and demonstrates increased medullary echogenicity suggesting the possibility of medullary sponge kidney and small nonobstructing calculi. 1.9 cm simple left renal cyst noted. Kidney measures 9.8 x 5.7 x 4.8 cm. No ascites in the visualized left upper quadrant. Impression: 1. Essentially normal appearance to the spleen with normal vascularity. Splenic artery aneurysm on CT not visualized by ultrasound. 2. Left kidney suggests medullary sponge kidney including few small 1-2 mm nonobstructing calculi and 1.9 cm simple left renal cyst. Electronically Signed by Jaquan Nix MD 12/04/2019 03:58 A
== END ==
LOC: M RAD 09:12
PROVIDERS: ATTEND Physician Assistant
DX: I72.8 Aneurysm of other specified arteries (principal)

== ENCOUNTER → 2019-12-03 | Outpatient (CLI) | payer OTHER ==
--- NOTE | 2019-12-04 03:41 | REP ---
Clinical: Kidney stone. Technique: Two supine views of the abdomen and pelvis. Findings: Small punctate intrarenal calculi measuring 1-2 mm cannot be excluded. 10 mm rim calcified structure in the left upper quadrant is consistent with splenic artery calcification. The bowel gas pattern is nonspecific. No obvious organomegaly. Skeletal structures are grossly intact. Impression: 1. Few punctate 1-2 mm intrarenal calculi suggested. Electronically Signed by Jaquan Nix MD 12/04/2019 03:33 A
== END ==
LOC: M ADAMS 10:18
PROVIDERS: ATTEND Nurse Practitioner Family
DX: N20.0 Calculus of kidney (principal)

== ENCOUNTER → 2020-02-06 | Outpatient (CLI) | payer OTHER ==
--- NOTE | 2020-02-06 14:04 | REP ---
REASON FOR EXAM: History of right renal cyst and medullary sponge kidney. The prior exam of 11/29/2019 showed findings consistent with medullary sponge kidney and bilateral renal cortical cysts. Today's examination shows the right kidney to be essentially unchanged in size, shape, and echotexture. The right kidney measures 10.7 x 5.6 x 4.2 cm. Once again, increased echoes are seen throughout the medullary region. There are two hypoechoic areas seen in the right kidney, one in the interpolar region measuring 2.1 x 1.7 x 1.4 cm and the other in the superior pole region measuring 1.1 x 0.8 cm. These are essentially unchanged. They exhibit some posterior wall enhancement and increased through transmission but are not completely anechoic. There is no hydronephrosis. The left kidney is unchanged in size, shape and echo pattern measuring 10.3 x 5. X 5.2 cm. Once again, the medullary echoes are diffusely increased. In the upper pole region of the left kidney, there is a hypoechoic structure, which measures 1.4 x 1.1 x 1.2 cm which is essentially unchanged. It has increased echoes throughout slightly and increased circumferential echoes without latrell posterior wall enhancement or increased through transmission. In the inferior pole is a 9 mm sized hypoechoic structure having the same imaging characteristics as the aforementioned. There is no hydronephrosis. The urinary bladder was nondistended. Doppler only identified urojet phenomenon on the right. IMPRESSION: 1. Findings consistent with the patient's diagnosis of medullary sponge kidney. 2. Bilateral hypoechoic areas as described above. They might represent hyperdense cysts. They are not anechoic and do not represent simple cysts. If it is safe to administered intravenous contrast in this patient, then I would recommend followup with dynamic renal CT before and after intravenous contrast administration. Patient's last CT of the abdomen was a noncontrast enhanced examination of 08/02/2019 and although the aforementioned findings of today cannot be completely evaluated with noncontrast enhanced CT, that examination did show stability in the findings when compared to an older CT of 07/03/2019, also without contrast. If the patient is not a candidate for iodinated intravenous contrast then I would recommend pre- and post gadolinium enhanced renal MRI provided the patient's GFR is high enough to safely administer intravenous gadolinium. Electronically Signed by Jeff Taylor DO 02/06/2020 02:22 P
== END ==
LOC: M RAD 11:02
PROVIDERS: ATTEND Specialist
DX: N20.1 Calculus of ureter (principal)

== ENCOUNTER → 2020-02-06 | Outpatient (CLI) | payer OTHER ==
--- NOTE | 2020-02-06 11:29 | REP ---
REASON: History of renal calculi. COMPARISON: 12/03/2019. Tiny calcifications are again seen superimposed over the inferior pole of the left nephric silhouette region. Bowel content obscures the inferior pole of the right kidney with overlying ribs obscuring additional portions of the right kidney. Although I see no definite right nephroliths they cannot be excluded. Suffice it to say, the right kidney does not appear to be significantly changed compared to the prior exam. There are pelvic calcifications status quo. There is an extrarenal calcification in the left upper quadrant status quo. IMPRESSION: As above. Electronically Signed by Jeff Taylor DO 02/06/2020 12:37 P
== END ==
LOC: M ADAMS 10:16
PROVIDERS: ATTEND Specialist
DX: N20.1 Calculus of ureter (principal)

== ENCOUNTER → 2020-02-11 | Outpatient (REF) | payer OTHER ==
[2020-02-11 13:07] LABS: HEMOGLOBIN A1c 6.3 %
[2020-02-11 13:24] LABS: ALBUMIN 4.1 GM/DL (3.2-5.2); ALT/SGPT 61 U/L (12-78); BILIRUBIN,TOTAL 0.5 MG/DL (0.2-1.0); BLOOD UREA NITROGEN 14 MG/DL (7-18); CALCIUM LEVEL 9.5 MG/DL (8.5-10.1); CARBON DIOXIDE LEVEL 30 MEQ/L (21-32); CHLORIDE LEVEL 105 MEQ/L (98-107); CREATININE FOR GFR 0.85 MG/DL (0.55-1.30); GLOMERULAR FILTRATION RATE > 60.0 (>51); GLUCOSE, FASTING 83 MG/DL (70-100); POTASSIUM SERUM 4.3 MEQ/L (3.5-5.1); SODIUM LEVEL 138 MEQ/L (136-145); TOTAL PROTEIN 7.6 GM/DL (6.4-8.2)
== END ==
LOC: M SFHCADAM 11:20
PROVIDERS: ATTEND Physician Assistant
DX: R73.01 Impaired fasting glucose (principal); Q61.5 Medullary cystic kidney
CPT/HCPCS: 80053; 82306; 83036; G0463

== ENCOUNTER → 2020-02-24 | Outpatient (CLI) | payer OTHER ==
[~2020-02-24] MED LIST changes: +ISOVUE-370 76% 100ML VIAL (Q9967) As Ordered ONE
== END ==
LOC: M RAD 16:07
PROVIDERS: ATTEND Nurse Practitioner Family
DX: N28.1 Cyst of kidney, acquired (principal)
CPT/HCPCS: 74170; Q9967

== ENCOUNTER → 2020-03-31 | Outpatient (CLI) | payer OTHER ==
[~2020-03-31] MED LIST changes: -ISOVUE-370 76% 100ML VIAL (Q9967) As Ordered ONE; +PROHANCE 279.3MG/ML 15ML VIAL As Ordered ONE
--- NOTE | 2020-03-31 13:44 | REP ---
MRI ABDOMEN WITH AND WITHOUT CONTRAST: COMPARISON: CT 02/24/2020 Multiple sequences obtained in the axial and coronal planes prior to and following the intravenous administration of 14 mL ProHance. The kidneys demonstrate multiple bilateral cystic structures. No suspicious enhancing mass is seen. In the lateral right kidney, there is a lobulated cyst which is hyperintense on T1 measuring 1.4 cm in diameter, only slightly hyperintense T2. This represents a proteinaceous or hemorrhagic cyst. The cyst with similar signal seen in the mid to upper left kidney, oval in shape, measuring 1.5 x 0.9 cm. Subcentimeter hemorrhagic proteinaceous cyst is seen posteriorly in the left lower pole. At the site of the vague low density area on the lateral left kidney, there is an area of cortical thinning and scarring with underlying mild caliectasis. There are mildly dilated calycles with contrast on the delayed images. There are other scattered simple cysts which do not enhance, bilaterally, largest on the right is in the upper pole measuring 1.4 cm in diameter. Two central cysts in the mild left kidney measure up to 1.5 cm. There is no hydronephrosis bilaterally. There is evidence of diffuse fatty infiltration of the liver. The spleen is normal in size. The adrenal glands demonstrate no nodule. No pancreatic mass is seen. There is no adenopathy or free fluid in the visualized abdomen. IMPRESSION: Multiple bilateral renal cysts as discussed in detail above. Most are simple appearing but there are a few hemorrhagic or proteinaceous cysts. At the site of hypodensity on the recent CT scan in the lateral right kidney, there is focal cortical thinning and scarring with underlying mild caliectasis. There is no suspicious renal mass bilaterally. Electronically Signed by John Chau MD 03/31/2020 02:55 P
== END ==
LOC: M RAD 08:47
PROVIDERS: ATTEND Nurse Practitioner Family
DX: R93.421 Abnormal radiologic findings on diagnostic imaging of right kidney (principal); N28.1 Cyst of kidney, acquired; K76.0 Fatty (change of) liver, not elsewhere classified; N28.89 Other specified disorders of kidney and ureter
CPT/HCPCS: 74183; A9576

== ENCOUNTER → 2020-08-18 | Outpatient (CLI) | payer OTHER ==
[~2020-08-18] MED LIST changes: +AMLO1TAB24 PO; -AMLO5TAB6 PO; -PROHANCE 279.3MG/ML 15ML VIAL As Ordered ONE
--- NOTE | 2020-08-21 13:58 | REP ---
ABDOMINAL RADIOGRAPH CLINICAL: Kidney stones. TECHNIQUE: Single supine view of the abdomen and pelvis. FINDINGS: Small bilateral intrarenal calculi are suggested measuring up to approximately 3 mm. Further evaluation of the urinary tract system is somewhat limited due to overlying bowel gas. Calcifications within the pelvis likely represent phlebolith, although bladder calculi cannot definitively be excluded. Bowel gas pattern suggests mild fecal stasis without obstruction. No obvious organomegaly. No abnormal foreign body. Skeletal structures intact. IMPRESSION: Bilateral nephrolithiasis. MTDD
== END ==
LOC: M ADAMS 14:45
PROVIDERS: ATTEND Nurse Practitioner Family
DX: N20.0 Calculus of kidney (principal)

== ENCOUNTER → 2020-09-02 | Outpatient (REF) | payer OTHER ==
[2020-09-02 13:19] LABS: FREE T4 0.92 NG/DL (0.76-1.46); THYROID STIMULATING HORMONE 1.1 uIU/ML (0.358-3.740)
[2020-09-02 13:38] LABS: HEMOGLOBIN A1c 6.2 %
== END ==
LOC: M SFHCADAM 08:28
PROVIDERS: ATTEND Physician Assistant
DX: R53.83 Other fatigue (principal); R73.01 Impaired fasting glucose; Q61.5 Medullary cystic kidney; R53.82 Chronic fatigue, unspecified

== ENCOUNTER → 2020-09-10 | Outpatient (REF) | payer OTHER ==
[2020-09-10 13:20] LABS: APPEARANCE, URINE CLEAR (CLEAR); BACTERIA, URINE AUTO 1+ (NEGATIVE); BILIRUBIN, URINE AUTO NEGATIVE (NEGATIVE); BLOOD, URINE BLOOD NEGATIVE (NEGATIVE); COLOR, URINE STRAW (YELLOW); GLUCOSE, URINE (UA) AUTO NEGATIVE (NEGATIVE); KETONE, URINE AUTO NEGATIVE (NEGATIVE); LEUKOCYTE ESTERASE, URINE AUTO TRACE (NEGATIVE); NITRITE, URINE AUTO NEGATIVE (NEGATIVE); PROTEIN, URINE AUTO NEGATIVE (NEGATIVE); RBC, URINE AUTO 1 /HPF (0-3); SPECIFIC GRAVITY URINE AUTO 1.002 (1.002-1.035); SQUAMOUS EPITHELIAL CELL UR AU 0 /HPF (0-6); UROBILINOGEN, URINE AUTO 0.2 mg/dL (0.0-2.0); WBC, URINE AUTO 4 /HPF (0-3)
== END ==
LOC: M LABSMT 11:32 → M SFHCADAM 11:34
PROVIDERS: ATTEND Urology
DX: N39.0 Urinary tract infection, site not specified (principal)

== ENCOUNTER → 2020-09-14 | Outpatient (REF) | payer OTHER | LOC: M LABSMT 13:48 → M SFHCADAM 13:51 | PROVIDERS: ATTEND Urology | DX: N39.0 Urinary tract infection, site not specified (principal) ==

== ENCOUNTER → 2020-11-26 | Outpatient (CLI) | payer OTHER ==
--- NOTE | 2020-11-27 05:50 | REP ---
INDICATION: CHEST TIGHTNESS COMPARISON: 08/02/2019 TECHNIQUE: PA and lateral. FINDINGS: The mediastinum and cardiac silhouette are normal. Subtle left lower lobe atelectasis/infiltrate is suggested and should be correlated with auscultation. No effusion. No pneumothorax. Skeletal structures intact. IMPRESSION: Subtle left lower lobe atelectasis/early infiltrate. Correlation recommended. <Electronically signed by Jaquan Nix > 11/27/20 [id number]
== END ==
LOC: M ADAMS 15:14
PROVIDERS: ATTEND Physician Assistant
DX: R07.89 Other chest pain (principal)

== ENCOUNTER → 2021-01-07 | Outpatient (REF) | payer OTHER ==
[2021-01-07 18:12] LABS: APPEARANCE, URINE HAZY (CLEAR); BACTERIA, URINE AUTO 1+ (NEGATIVE); BILIRUBIN, URINE AUTO NEGATIVE (NEGATIVE); BLOOD, URINE BLOOD 1+ (NEGATIVE); COLOR, URINE YELLOW (YELLOW); GLUCOSE, URINE (UA) AUTO NEGATIVE (NEGATIVE); KETONE, URINE AUTO NEGATIVE (NEGATIVE); LEUKOCYTE ESTERASE, URINE AUTO 3+ (NEGATIVE); MUCUS, URINE SMALL (NEGATIVE); NITRITE, URINE AUTO NEGATIVE (NEGATIVE); PROTEIN, URINE AUTO NEGATIVE (NEGATIVE); RBC, URINE AUTO 6 /HPF (0-3); SPECIFIC GRAVITY URINE AUTO 1.006 (1.002-1.035); SQUAMOUS EPITHELIAL CELL UR AU 0 /HPF (0-6); UROBILINOGEN, URINE AUTO 0.2 mg/dL (0.0-2.0); WBC, URINE AUTO 51 /HPF (0-3)
== END ==
LOC: M LABSMT 15:25 → M SFHCADAM 15:25
PROVIDERS: ATTEND Urology
DX: N39.0 Urinary tract infection, site not specified (principal)

== ENCOUNTER → 2021-01-12 | Outpatient (REF) | payer OTHER ==
[2021-01-12 18:02] LABS: APPEARANCE, URINE CLEAR (CLEAR); BACTERIA, URINE AUTO NEGATIVE (NEGATIVE); BILIRUBIN, URINE AUTO NEGATIVE (NEGATIVE); BLOOD, URINE BLOOD 1+ (NEGATIVE); COLOR, URINE STRAW (YELLOW); GLUCOSE, URINE (UA) AUTO NEGATIVE (NEGATIVE); KETONE, URINE AUTO NEGATIVE (NEGATIVE); LEUKOCYTE ESTERASE, URINE AUTO 2+ (NEGATIVE); NITRITE, URINE AUTO NEGATIVE (NEGATIVE); PROTEIN, URINE AUTO NEGATIVE (NEGATIVE); RBC, URINE AUTO 1 /HPF (0-3); SPECIFIC GRAVITY URINE AUTO 1.003 (1.002-1.035); SQUAMOUS EPITHELIAL CELL UR AU 0 /HPF (0-6); UROBILINOGEN, URINE AUTO 0.2 mg/dL (0.0-2.0); WBC, URINE AUTO 5 /HPF (0-3)
== END ==
LOC: M SMT 17:05
PROVIDERS: ATTEND Urology
DX: N39.0 Urinary tract infection, site not specified (principal)

== ENCOUNTER → 2021-02-22 | Outpatient (CLI) | payer OTHER ==
--- NOTE | 2021-02-22 13:51 | REP ---
INDICATION: KIDNEY STONE COMPARISON: 08/18/2020 TECHNIQUE: Supine views of the abdomen and pelvis. FINDINGS: Bilateral nephroliths are again noted and similar to prior examination. Further evaluation is limited due to overlying bowel gas. No bowel obstruction. No definite organomegaly. Skeletal structures intact and stable. Calcifications in the pelvis consistent with phleboliths. IMPRESSION: Bilateral nephroliths similar to prior examination. <Electronically signed by Jaquan Nix > 02/22/21 [id number]
== END ==
LOC: M ADAMS 13:34
PROVIDERS: ATTEND Urology
DX: N20.0 Calculus of kidney (principal)

== ENCOUNTER → 2021-02-24 | Outpatient (REF) | payer OTHER ==
[2021-02-24 14:01] LABS: APPEARANCE, URINE CLEAR (CLEAR); BACTERIA, URINE AUTO NEGATIVE (NEGATIVE); BILIRUBIN, URINE AUTO NEGATIVE (NEGATIVE); BLOOD, URINE BLOOD NEGATIVE (NEGATIVE); COLOR, URINE YELLOW (YELLOW); GLUCOSE, URINE (UA) AUTO NEGATIVE (NEGATIVE); KETONE, URINE AUTO NEGATIVE (NEGATIVE); LEUKOCYTE ESTERASE, URINE AUTO 2+ (NEGATIVE); MUCUS, URINE SMALL (NEGATIVE); NITRITE, URINE AUTO NEGATIVE (NEGATIVE); PROTEIN, URINE AUTO NEGATIVE (NEGATIVE); RBC, URINE AUTO 5 /HPF (0-3); SQUAMOUS EPITHELIAL CELL UR AU 0 /HPF (0-6); UROBILINOGEN, URINE AUTO 0.2 mg/dL (0.0-2.0); WBC, URINE AUTO 41 /HPF (0-3)
== END ==
LOC: M SMT 13:17
PROVIDERS: ATTEND Nurse Practitioner Family
DX: R31.0 Gross hematuria (principal)
CPT/HCPCS: 81001; 87086; 88108; G0463

== ENCOUNTER → 2021-02-26 | Outpatient (REF) | payer OTHER ==
[2021-02-26 16:55] LABS: APPEARANCE, URINE HAZY (CLEAR); BACTERIA, URINE AUTO NEGATIVE (NEGATIVE); BILIRUBIN, URINE AUTO NEGATIVE (NEGATIVE); BLOOD, URINE BLOOD NEGATIVE (NEGATIVE); COLOR, URINE YELLOW (YELLOW); GLUCOSE, URINE (UA) AUTO NEGATIVE (NEGATIVE); KETONE, URINE AUTO NEGATIVE (NEGATIVE); LEUKOCYTE ESTERASE, URINE AUTO 2+ (NEGATIVE); NITRITE, URINE AUTO NEGATIVE (NEGATIVE); PROTEIN, URINE AUTO NEGATIVE (NEGATIVE); RBC, URINE AUTO 1 /HPF (0-3); SPECIFIC GRAVITY URINE AUTO 1.005 (1.002-1.035); SQUAMOUS EPITHELIAL CELL UR AU 0 /HPF (0-6); UROBILINOGEN, URINE AUTO 0.2 mg/dL (0.0-2.0); WBC, URINE AUTO 21 /HPF (0-3)
[2021-02-26 17:22] LABS: BLOOD UREA NITROGEN 18 MG/DL (7-18); CALCIUM LEVEL 9.4 MG/DL (8.5-10.1); CARBON DIOXIDE LEVEL 27 MEQ/L (21-32); CHLORIDE LEVEL 106 MEQ/L (98-107); CREATININE FOR GFR 0.92 MG/DL (0.55-1.30); GLOMERULAR FILTRATION RATE > 60.0 (>51); GLUCOSE, FASTING 86 MG/DL (70-100); POTASSIUM SERUM 3.9 MEQ/L (3.5-5.1); SODIUM LEVEL 139 MEQ/L (136-145)
== END ==
LOC: M LABSMT 12:06 → M SFHCADAM 12:10
PROVIDERS: ATTEND Nurse Practitioner Family
DX: N39.0 Urinary tract infection, site not specified (principal); R31.0 Gross hematuria

== ENCOUNTER → 2021-03-05 | Outpatient (CLI) | payer OTHER ==
--- NOTE | 2021-03-05 10:40 | REP ---
INDICATION: RIB PAIN. COMPARISON: Comparison chest x-ray 26 November 2020.. TECHNIQUE: Four views of the right rib cage are provided. FINDINGS: Four views of the right ribs demonstrate no bony destructive lesion. One of the views demonstrates evidence of a right anterolateral 7th rib fracture. No other rib fracture is seen. There is evidence of bilateral intrarenal nephrolithiasis. there is a 10 mm calculus projecting in the lower pole of the right kidney. The largest calculus projecting in the lower pole on the left is 5 mm. The right lung is clear. There is mild hypertrophy at the AC joint consistent with osteoarthritis. IMPRESSION: Right lateral 7th rib fracture seen on only one view. Bilateral intrarenal nephrolithiasis. Otherwise negative. <Electronically signed by Fernando Hdz > 03/05/21 [id number]
== END ==
LOC: M ADAMS 07:53
PROVIDERS: ATTEND Physician Assistant
DX: R07.89 Other chest pain (principal)
CPT/HCPCS: 71100; G0463

== ENCOUNTER → 2021-03-11 | Outpatient (CLI) | payer OTHER ==
[~2021-03-11] MED LIST changes: +ISOVUE-370 76% 100ML VIAL As Ordered ONE
--- NOTE | 2021-03-16 07:30 | REP ---
INDICATION: GROSS HEMATURIA. COMPARISON: 02/24/2020 TECHNIQUE: Axial precontrast, contrast-enhanced and delayed images from the lung bases to the pubic symphysis using 100 cc Isovue 370 intravenous contrast material. Coronal and sagittal reformations obtained. This CT examination was performed using the following dose reduction techniques: Automated exposure control, adjustment of mA and/or kv according to the patient's size, and the use of iterative reconstruction technique. FINDINGS: The kidneys demonstrate bilateral benign appearing cysts measuring up to approximately 3 cm on the right kidney and 1.7 cm on the left kidney along with bilateral nephrolithiasis including right-sided calculi measuring up to 8 mm and left-sided calculi measuring up to 6 mm. Left sided chronic hydronephrosis is appreciated along with multiple calculi in the mid left ureter measuring up to approximately 9 mm (series 201; images 97-100). Liver, spleen, pancreas, and bilateral adrenal glands are normal. Cholelithiasis noted without acute cholecystitis. Moderate sliding hiatal hernia noted. Small and large bowel without obstruction or acute inflammatory process. Normal terminal ileum and appendix identified in the right lower quadrant. Scattered sigmoid diverticula noted without acute diverticulitis. Pelvis demonstrates normal bladder and age-appropriate uterus/left adnexa. 2.5 cm right ovarian cyst likely physiologic. Bilateral small to moderate fat containing inguinal hernias are identified. No ascites. No free air. No intraperitoneal or retroperitoneal adenopathy. Abdominal aorta and vasculature appear normal. Musculoskeletal structures are intact and without acute osseous abnormality. IMPRESSION: 1. Left-sided hydroureteronephrosis with multiple calculi identified in the mid ureter measuring up to 9 mm. Bilateral renal cysts and nonobstructing intrarenal calculi noted. 2. Cholelithiasis. 3. Sigmoid diverticula without acute diverticulitis. 4. Right ovarian cyst measuring 2.5 cm likely physiologic. <Electronically signed by Jaquan Nix > 03/16/21 [id number]
== END ==
LOC: M RAD 15:51
PROVIDERS: ATTEND Nurse Practitioner Family
DX: R31.0 Gross hematuria (principal); N13.30 Unspecified hydronephrosis; N28.1 Cyst of kidney, acquired; N20.0 Calculus of kidney; N83.201 Unspecified ovarian cyst, right side; K80.20 Calculus of gallbladder without cholecystitis without obstruction
CPT/HCPCS: 74178; Q9967

== ENCOUNTER → 2021-03-17 | Outpatient (REF) | payer OTHER ==
[~2021-03-17] MED LIST changes: -ISOVUE-370 76% 100ML VIAL As Ordered ONE
[2021-03-17 13:06] LABS: HEMATOCRIT 41.9 % (36.0-47.0); HEMOGLOBIN 13.7 g/dl (12.0-15.5); MEAN CORPUSCULAR HEMOGLOBIN 31.1 pg (27.0-33.0); MEAN CORPUSCULAR HGB CONC 32.7 g/dl (32.0-36.5); PLATELET COUNT, AUTOMATED 297 10^3/uL (150-450); RED BLOOD COUNT 4.41 10^6/uL (4.00-5.40); WHITE BLOOD COUNT 7.1 10^3/uL (4.0-10.0)
[2021-03-17 13:24] LABS: HEMOGLOBIN A1c 6.9 %
[2021-03-17 14:02] LABS: ALT/SGPT 48 U/L (12-78); BILIRUBIN,TOTAL 0.3 MG/DL (0.2-1.0); BLOOD UREA NITROGEN 15 MG/DL (7-18); CALCIUM LEVEL 9.6 MG/DL (8.5-10.1); CARBON DIOXIDE LEVEL 25 MEQ/L (21-32); CHLORIDE LEVEL 107 MEQ/L (98-107); CHOLESTEROL LEVEL 271 MG/DL (<200); CREATININE FOR GFR 0.97 MG/DL (0.55-1.30); FREE T4 0.88 NG/DL (0.76-1.46); GLOMERULAR FILTRATION RATE > 60.0 (>51); GLUCOSE, FASTING 96 MG/DL (70-100); HDL CHOLESTEROL 50 MG/DL (>40); LDL CHOLESTEROL 174 MG/DL (<100); NON-HDL-C 221 MG/DL; POTASSIUM SERUM 4.2 MEQ/L (3.5-5.1); PTH INTACT 36.9 PG/ML (18.5-88.0); SODIUM LEVEL 140 MEQ/L (136-145); TOTAL PROTEIN 7.2 GM/DL (6.4-8.2); TRIGLYCERIDES LEVEL 235 MG/DL (<150)
== END ==
LOC: M SFHCADAM 07:59
PROVIDERS: ATTEND Physician Assistant
DX: R73.01 Impaired fasting glucose (principal); I10 Essential (primary) hypertension; E78.2 Mixed hyperlipidemia; Q61.5 Medullary cystic kidney; S22.31XA Fracture of one rib, right side, initial encounter for closed fracture; X58.XXXA Exposure to other specified factors, initial encounter; Y92.9 Unspecified place or not applicable
CPT/HCPCS: 80053; 80061; 82306; 83036; 83970; 84439; 84443; 85027; G0463

== ENCOUNTER → 2021-04-06 | Outpatient (CLI) | payer OTHER ==
--- NOTE | 2021-04-06 12:02 | REP ---
INDICATION: PREOP COMPARISON: 11/26/2020 TECHNIQUE: PA and lateral. FINDINGS: The mediastinum and cardiac silhouette are normal. The lung dugan are clear and without acute consolidation, effusion, or pneumothorax. The skeletal structures are intact and normal. IMPRESSION: No acute cardiopulmonary process. <Electronically signed by Jaquan Nix > 04/06/21 2095
== END ==
LOC: M ADAMS 11:12
PROVIDERS: ATTEND Nurse Practitioner Family
DX: Z01.818 Encounter for other preprocedural examination (principal); N20.0 Calculus of kidney

== ENCOUNTER → 2021-04-06 | Outpatient (REF) | payer OTHER ==
[2021-04-06 12:48] LABS: HEMATOCRIT 40.3 % (36.0-47.0); HEMOGLOBIN 13.5 g/dl (12.0-15.5); MEAN CORPUSCULAR HEMOGLOBIN 30.8 pg (27.0-33.0); MEAN CORPUSCULAR HGB CONC 33.5 g/dl (32.0-36.5); MEAN CORPUSCULAR VOLUME 91.8 fl (80.0-96.0); PLATELET COUNT, AUTOMATED 291 10^3/uL (150-450); RED BLOOD COUNT 4.39 10^6/uL (4.00-5.40); WHITE BLOOD COUNT 6.7 10^3/uL (4.0-10.0)
[2021-04-06 12:56] LABS: INR 0.84; PROTHROMBIN TIME 11.7 SECONDS (12.5-14.3)
[2021-04-06 12:57] LABS: PARTIAL THROMBOPLASTIN TIME 25.8 SECONDS (24.2-38.5)
[2021-04-06 13:22] LABS: BLOOD UREA NITROGEN 14 MG/DL (7-18); CALCIUM LEVEL 9.8 MG/DL (8.5-10.1); CARBON DIOXIDE LEVEL 28 MEQ/L (21-32); CHLORIDE LEVEL 106 MEQ/L (98-107); CREATININE FOR GFR 0.88 MG/DL (0.55-1.30); GLOMERULAR FILTRATION RATE > 60.0 (>51); GLUCOSE, FASTING 107 MG/DL (70-100); POTASSIUM SERUM 4.3 MEQ/L (3.5-5.1); SODIUM LEVEL 140 MEQ/L (136-145)
== END ==
LOC: M LABSMT 11:28 → M SFHCADAM 11:37
PROVIDERS: ATTEND Nurse Practitioner Family
DX: Z01.818 Encounter for other preprocedural examination (principal); N20.0 Calculus of kidney

== ENCOUNTER → 2021-04-16 | Outpatient (REF) | payer OTHER ==
[~2021-04-16] MED LIST changes: +EQL50TAB2 PO; +MAGN100T PO
[2021-04-16 13:57] LABS: APPEARANCE, URINE CLOUDY (CLEAR); BACTERIA, URINE AUTO 2+ (NEGATIVE); BILIRUBIN, URINE AUTO NEGATIVE (NEGATIVE); BLOOD, URINE BLOOD 1+ (NEGATIVE); COLOR, URINE YELLOW (YELLOW); GLUCOSE, URINE (UA) AUTO NEGATIVE (NEGATIVE); KETONE, URINE AUTO NEGATIVE (NEGATIVE); LEUKOCYTE ESTERASE, URINE AUTO 3+ (NEGATIVE); MUCUS, URINE SMALL (NEGATIVE); NITRITE, URINE AUTO NEGATIVE (NEGATIVE); PROTEIN, URINE AUTO NEGATIVE (NEGATIVE); RBC, URINE AUTO 2 /HPF (0-3); SPECIFIC GRAVITY URINE AUTO 1.002 (1.002-1.035); SQUAMOUS EPITHELIAL CELL UR AU 0 /HPF (0-6); UROBILINOGEN, URINE AUTO 0.2 mg/dL (0.0-2.0); WBC, URINE AUTO 37 /HPF (0-3)
== END ==
LOC: M LABSMT 11:06 → M SFHCADAM 11:28
PROVIDERS: ATTEND Nurse Practitioner Family
DX: N20.0 Calculus of kidney (principal); Z01.818 Encounter for other preprocedural examination

== ENCOUNTER → 2021-04-18 | Outpatient (CLI) | payer OTHER | LOC: M LABSMTC 08:25 | PROVIDERS: ATTEND Anesthesiology | DX: Z20.828 Contact with and (suspected) exposure to other viral communicable diseases (principal); Z11.59 Encounter for screening for other viral diseases ==

== ENCOUNTER → 2021-04-19 | Outpatient (CLI) | payer OTHER ==
--- NOTE | 2021-04-19 11:37 | DEXAMM ---
INDICATION: VIT D DEFICIENCY, CLOSED RIB FX RIGHT SIDE W/ ROUTINE HEALING. COMPARISON: None. TECHNIQUE: Bone density was measured using dual-energy x-ray absorptiometry (DEXA). FINDINGS: AP SPINE L1-L4 BMD 1.144 g/cm2 Young Adult T-Score -0.4 Age Matched Z-Score 0.3. LT FEMUR, TOTAL BMD 0.908 g/cm2 Young Adult T-Score -0.8 Age Matched Z-Score -0.2. LT NECK BMD 0.840 g/cm2 Young Adult T-Score -1.4 Age Matched Z-Score -0.5. RT FEMUR, TOTAL BMD 0.863 g/cm2 Young Adult T-Score -1.1 Age Matched Z-Score -0.5. RT NECK BMD 0.828 g/cm2 Young Adult T-Score -1.5 Age Matched Z-Score -0.5. IMPRESSION: There is normal bone density of the spine. There is low bone density of the left hip. There is low bone density of the right hip. FOLLOW-UP: Recommendation for the next bone density exam: 2 years. <Electronically signed by John Chau > 04/19/21 [id number]
== END ==
LOC: M WHC 09:07
PROVIDERS: ATTEND Physician Assistant
DX: S22.31XD Fracture of one rib, right side, subsequent encounter for fracture with routine healing (principal); E55.9 Vitamin D deficiency, unspecified; Y99.9 Unspecified external cause status; X58.XXXA Exposure to other specified factors, initial encounter

== ENCOUNTER 2021-04-23 09:05 | Day surgery (SDC) | payer OTHER ==
[~2021-04-23] VITALS: Ht 160 cm; Wt 71.1 kg
[~2021-04-23 09:05] MED LIST changes: +LIDOCAINE 1% MDV 20ML VIAL SQ PRN; +LIDOCAINE 2% 100MG/5ML SDV (FOR ANES.) As Ordered ONE; +LR 1,000 ML IV ONE; +MIDAZOLAM INJ 2MG/2ML VIAL (J2250 PER 1MG) As Ordered ONE; +ONDANSETRON 4MG/2ML VIAL As Ordered ONE; +ceFAZolin SOD 2 GM in IV 1 EA IV ONE; +dexameTHASONE 4 MG/ML 1ML VIAL (J1100 PER 1MG) As Ordered ONE; +fentaNYL 100 MCG/2 ML INJECTION (J3010) As Ordered ONE; +propofoL 200 MG/20 ML VIAL As Ordered ONE
[2021-04-23] MEDS ORDERED: CEPH25SS PO (09:27)
[2021-04-23] MEDS ORDERED: CONRAY-60 60% 50ML VIAL (Q9961) As Ordered ONE (11:06)
[2021-04-23] MEDS ORDERED: ACETAMINOPHEN 1000MG 100ML IV BTL (OFIRMEV) (J0131 PER 10MG) As Ordered ONE (11:09)
[2021-04-23] MEDS ORDERED: OXYB5TAB10 PO (11:33)
[2021-04-23] MEDS ORDERED: OXYC1TAB23 PO (11:33)
--- NOTE | 2021-04-23 13:04 | REP ---
INDICATION: BILATERAL STENT PLACEMENT. COMPARISON: 07/22/2019. TECHNIQUE: Four views abdomen and pelvis using a C-arm. FINDINGS: Contrast partially opacifies the pelvocaliceal systems bilaterally. Bilateral ureteral stents are placed. The proximal end of each stent is in the respective renal pelvis and the distal ends are in the urinary bladder. IMPRESSION: 20 seconds of fluoroscopy time was utilized. <Electronically signed by John Chau > 04/23/21 1300
[2021-04-23] MEDS ORDERED: oxyCODONE 5MG TAB PO PRN (13:20)
[2021-04-23] MEDS ORDERED: LR 1,000 ML IV SCH (13:20)
[2021-04-23] MEDS ORDERED: PERCOCET 5MG/325MG TAB PO PRN (13:20)
[2021-04-23] MEDS ORDERED: oxyBUTYnin 5 MG TAB PO PRN (13:20)
[2021-04-23] MEDS ORDERED: ONDANSETRON 4MG/2ML VIAL IV PRN (13:20)
[2021-04-23] MEDS: fentaNYL 100 MCG/2 ML INJECTION (J3010) IV PRN ×2 (13:40→14:13)
[2021-04-23 14:55] VITALS: BP 132/81
--- NOTE | 2021-04-23 23:55 | RO ---
OPERATIVE NOTE DATE OF OPERATION: 04/23/2021 PREOPERATIVE DIAGNOSIS: Bilateral kidney and ureteral stones. POSTOPERATIVE DIAGNOSIS: Bilateral kidney and ureteral stones. PROCEDURES: Cystoscopy, bilateral ureteroscopy with laser lithotripsy and basket extraction of stones, bilateral retrograde pyelograms with intraoperative interpretation of images, bilateral ureteral stent placement. SURGEON: Dr. Alejo Lima SCRAP DROP CRANE OPERATOR: None. ANESTHESIA: General. OPERATIVE INDICATIONS: This is a 56-year-old female who was found to have bilateral kidney stones as well as an approximately 6 to 7 mm left ureteral stone. She was brought to the operating room today for treatment. DESCRIPTION OF PROCEDURE: The patient was brought to the operating room, and general anesthesia was induced. Prophylactic antibiotics were infused. She was placed in the dorsal lithotomy position and prepped and draped in the usual sterile fashion. A rigid cystoscope was inserted in the urethral meatus and advanced to the bladder. A guidewire was then advanced up the left collecting system. I then went up the left collecting system with a short semi-rigid ureteroscope and in the the distal ureter there was an approximately 6 to 7 mm size stone that was impacted. I then used a 272 micron laser fiber to fragment the stone into smaller pieces and then all the fragments were removed using a basket. Once that was done, I advanced a ureteral access sheath up the left collecting system. I went up the access sheath with a flexible ureteroscope and examined the left kidney thoroughly. Of note; the patient had nephrocalcinosis with several imbedded calcifications in the renal papilla. I also identified an approximately 4 or 5 mm sized stone in the kidney. The stone was removed using a basket. No other stones were seen. I then performed a retrograde pyelogram and it was notable for mild left hydronephrosis with no extravasation. I then withdrew the ureteroscope along with the access sheath, and no additional stones were seen inside the ureter. I utilized the guidewire to advance a 6-Norwegian x 22/32 cm JJ ureteral stent up the left collecting system. The wire was removed, and there were adequate curls of the stent in the left renal pelvis and in the bladder. I then advanced the guidewire up the right collecting system. I advanced the ureteral access sheath up the right collecting system. I went up the access sheath with a flexible ureteroscope, and the right kidney was thoroughly examined. The patient also had nephrocalcinosis on the right side. There was an approximately 9 to 10 mm size stone in a lower pole calyx. The stone was then fragmented into smaller pieces using a 272 micron laser fiber, and then all fragments were removed using a basket. Once satisfied all the stones were removed, a retrograde pyelogram was performed. It was notable for mild right hydronephrosis with no extravasation. I then withdrew the ureteroscope along with the access sheath, and no additional stones were seen inside the ureter. I utilized the guidewire to advance a 6-Norwegian x 22/32 cm JJ ureteral stent up the right collecting system. The wire was removed, and there were adequate curls of the stent in the right renal pelvis and in the bladder. I then emptied the bladder of all fluids, and this marked the conclusion of the procedure. The patient was taken out of the dorsal lithotomy position, awakened from anesthesia, and transported to the recovery room in stable condition. ESTIMATED BLOOD LOSS: 5 mL. COMPLICATIONS: None. SPECIMENS: Kidney stone fragments. PLAN: The patient will follow-up in the urology clinic in a few weeks for stent removal. Of not, she would benefit from a referral to nephrology for medical management of kidney stones. MANUELA
== END 2021-04-23 14:59 | disposition home or self-care (01) ==
LOC: M SDC 09:05
PROVIDERS: ATTEND Urology
DX: N20.2 Calculus of kidney with calculus of ureter (principal); I10 Essential (primary) hypertension; R73.09 Other abnormal glucose; K21.9 Gastro-esophageal reflux disease without esophagitis; K44.9 Diaphragmatic hernia without obstruction or gangrene; F41.9 Anxiety disorder, unspecified; G43.909 Migraine, unspecified, not intractable, without status migrainosus; R06.83 Snoring; Q61.5 Medullary cystic kidney; Z78.0 Asymptomatic menopausal state; Z88.2 Allergy status to sulfonamides; Z79.899 Other long term (current) drug therapy
CPT/HCPCS: 52356; 74420; 82365; 88300; C1769; C2617; J0131; J0690; J1100; J2250; J2405; J3010; Q9961

== ENCOUNTER → 2021-05-31 | Outpatient (REF) | payer OTHER ==
[~2021-05-31] MED LIST changes: +CEPH25SS PO; -LIDOCAINE 1% MDV 20ML VIAL SQ PRN; -LIDOCAINE 2% 100MG/5ML SDV (FOR ANES.) As Ordered ONE; -LR 1,000 ML IV ONE; -MIDAZOLAM INJ 2MG/2ML VIAL (J2250 PER 1MG) As Ordered ONE; -ONDANSETRON 4MG/2ML VIAL As Ordered ONE; +OXYB5TAB10 PO; +OXYC1TAB23 PO; -ceFAZolin SOD 2 GM in IV 1 EA IV ONE; -dexameTHASONE 4 MG/ML 1ML VIAL (J1100 PER 1MG) As Ordered ONE; -fentaNYL 100 MCG/2 ML INJECTION (J3010) As Ordered ONE; -propofoL 200 MG/20 ML VIAL As Ordered ONE
== END ==
LOC: M LAB REF 17:20
PROVIDERS: ATTEND Internal Medicine Nephrology
DX: E83.42 Hypomagnesemia (principal)

== ENCOUNTER → 2021-08-02 | Outpatient (CLI) | payer OTHER ==
--- NOTE | 2021-08-04 12:46 | REP ---
INDICATION: KIDNEY STONES, RETAINED URETERAL STENT. COMPARISON: Comparison KUB study February 22, 2021. TECHNIQUE: Supine film of the abdomen. Single view KUB. FINDINGS: There is a dextroconvex curvature in the lumbar spine unchanged. The bowel gas pattern is normal. There are phleboliths in the pelvis. Minimal vascular calcification is observed. There are faintly visible small calcific densities projecting over the right kidney and left kidney consistent with intrarenal nephrolithiasis. These changes are similar on the right to the prior study. The larger calculus visible on the left and February 22, 2021 study is no longer apparent. The largest component of apparent today measures 3 mm in greatest diameter. IMPRESSION: Intrarenal nephrolithiasis bilaterally. <Electronically signed by Fernando Hdz > 08/04/21 0604
== END ==
LOC: M ADAMS 11:30
PROVIDERS: ATTEND Urology
DX: N20.0 Calculus of kidney (principal); Z96.0 Presence of urogenital implants

== ENCOUNTER → 2021-09-01 | Outpatient (REF) | payer OTHER | LOC: M LAB REF 17:06 | PROVIDERS: ATTEND Internal Medicine Nephrology | DX: E83.42 Hypomagnesemia (principal) ==

== ENCOUNTER → 2022-02-02 | Outpatient (CLI) | payer OTHER ==
[~2022-02-02] MED LIST changes: -FLUC150T PO; +FLUC150T9 PO
== END ==
LOC: M PLALAB 11:26 → M PLAIMG 11:26
PROVIDERS: ATTEND Urology
DX: Q61.5 Medullary cystic kidney (principal)

== ENCOUNTER → 2022-04-14 | Outpatient (CLI) | payer OTHER | LOC: M ADAMS 13:43 | PROVIDERS: ATTEND Physician Assistant | DX: M25.762 Osteophyte, left knee (principal); M25.562 Pain in left knee ==

== ENCOUNTER → 2022-05-11 | Outpatient (CLI) | payer OTHER | LOC: M SOG 07:58 | PROVIDERS: ATTEND Orthopaedic Surgery Adult Reconstructive Orthopaedic Surgery | DX: M25.562 Pain in left knee (principal) ==

== ENCOUNTER → 2022-08-05 | Outpatient (CLI) | payer OTHER | LOC: M ADAMS 11:24 | PROVIDERS: ATTEND Urology | DX: N20.0 Calculus of kidney (principal) ==

== ENCOUNTER → 2022-10-13 | Outpatient (REF) | payer OTHER ==
[2022-10-13 21:34] LABS: HEMOGLOBIN A1c 6.4 % (4.0-6.0)
== END ==
LOC: M SFHCADAM 13:17
PROVIDERS: ATTEND Physician Assistant
DX: E11.9 Type 2 diabetes mellitus without complications (principal); E55.9 Vitamin D deficiency, unspecified

== ENCOUNTER → 2022-11-14 | Outpatient (CLI) | payer OTHER | LOC: M ADAMS 13:17 | PROVIDERS: ATTEND Urology | DX: N20.0 Calculus of kidney (principal) ==

== ENCOUNTER → 2022-12-13 | Outpatient (CLI) | payer OTHER ==
[~2022-12-13] MED LIST changes: +ALLO100T PO; +CVS1CAP5 PO; +HYDR12CA PO; +POTA1TAB24 PO
[2022-12-13 13:21] LABS: HEMATOCRIT 39.1 % (36.0-47.0); HEMOGLOBIN 13.5 g/dl (12.0-15.5); MEAN CORPUSCULAR HEMOGLOBIN 31.6 pg (27.0-33.0); MEAN CORPUSCULAR HGB CONC 34.5 g/dl (32.0-36.5); MEAN CORPUSCULAR VOLUME 91.6 fl (80.0-96.0); PLATELET COUNT, AUTOMATED 296 10^3/uL (150-450); RED BLOOD COUNT 4.27 10^6/uL (4.00-5.40); WHITE BLOOD COUNT 7.5 10^3/uL (4.0-10.0)
[2022-12-13 13:25] LABS: INR 0.82; PROTHROMBIN TIME 11.5 SECONDS (12.5-14.5)
[2022-12-13 13:48] LABS: ALBUMIN 3.9 G/DL (3.2-5.2); ALKALINE PHOSPHATASE 86 U/L (46-116); ALT/SGPT 74 U/L (7.0-40); AST/SGOT 52 U/L (<34); BILIRUBIN,TOTAL 0.5 MG/DL (0.3-1.2); BLOOD UREA NITROGEN 13 MG/DL (9-23); CALCIUM LEVEL 9.3 MG/DL (8.5-10.1); CARBON DIOXIDE LEVEL 29 MMOL/L (20-31); CHLORIDE LEVEL 102 MMOL/L (98-107); CREATININE FOR GFR 0.83 MG/DL (0.55-1.30); GLOMERULAR FILTRATION RATE > 60.0 (>51); GLUCOSE, FASTING 115 MG/DL (60-100); POTASSIUM SERUM 3.9 MMOL/L (3.5-5.1); SODIUM LEVEL 140 MMOL/L (136-145); TOTAL PROTEIN 7.1 G/DL (5.7-8.2)
== END ==
LOC: M ADAMS 11:00
PROVIDERS: ATTEND Urology
DX: N20.0 Calculus of kidney (principal)

== ENCOUNTER → 2022-12-21 | Outpatient (REF) | payer OTHER | LOC: M SFHCADAM 14:01 | PROVIDERS: ATTEND Urology | DX: N20.0 Calculus of kidney (principal) ==

== ENCOUNTER → 2022-12-27 | Outpatient (CLI) | payer OTHER | LOC: M LABSMTC 10:01 | PROVIDERS: ATTEND Anesthesiology | DX: Z01.812 Encounter for preprocedural laboratory examination (principal); Z11.52 Encounter for screening for COVID-19 ==

== ENCOUNTER → 2022-12-27 | Outpatient (REF) | payer OTHER ==
[2022-12-27 16:27] LABS: APPEARANCE, URINE CLEAR (CLEAR); BACTERIA, URINE AUTO 1+ (NEGATIVE); BILIRUBIN, URINE AUTO NEGATIVE (NEGATIVE); BLOOD, URINE BLOOD NEGATIVE (NEGATIVE); COLOR, URINE STRAW (YELLOW); GLUCOSE, URINE (UA) AUTO NEGATIVE (NEGATIVE); KETONE, URINE AUTO NEGATIVE (NEGATIVE); LEUKOCYTE ESTERASE, URINE AUTO 2+ (NEGATIVE); MUCUS, URINE SMALL (NEGATIVE); NITRITE, URINE AUTO NEGATIVE (NEGATIVE); PROTEIN, URINE AUTO NEGATIVE (NEGATIVE); RBC, URINE AUTO 2 /HPF (0-3); SQUAMOUS EPITHELIAL CELL UR AU 0 /HPF (0-6); UROBILINOGEN, URINE AUTO 0.2 mg/dL (0.0-2.0); WBC, URINE AUTO 19 /HPF (0-3)
== END ==
LOC: M SMT 15:39
PROVIDERS: ATTEND Urology
DX: N20.0 Calculus of kidney (principal)

== ENCOUNTER 2022-12-29 06:05 | Day surgery (SDC) | payer OTHER ==
[~2022-12-29] VITALS: Ht 160 cm; Wt 80.3 kg
[2022-12-29] MEDS ORDERED: LIDOCAINE 2% 100MG/5ML SDV (FOR ANES.) As Ordered ONE (06:39)
[2022-12-29] MEDS ORDERED: propofoL 500 MG/50 ML VIAL As Ordered ONE (06:39)
[2022-12-29] MEDS ORDERED: MIDAZOLAM INJ 2MG/2ML VIAL As Ordered ONE (06:39)
[2022-12-29] MEDS ORDERED: fentaNYL 100 MCG/2 ML INJECTION As Ordered ONE (06:39)
[2022-12-29] MEDS ORDERED: LIDOCAINE 1% SDV 5ML VIAL SC PRN (06:45)
[2022-12-29] MEDS ORDERED: LR 1,000 ML IV SCH (06:45)
[2022-12-29] MEDS ORDERED: ACETAMINOPHEN 1000MG 100ML IV BAG As Ordered ONE (07:57)
[2022-12-29 08:07] VITALS: BP 133/86
== END 2022-12-29 09:17 | disposition home or self-care (01) ==
LOC: M SDC 06:05
PROVIDERS: ATTEND Urology
DX: N20.0 Calculus of kidney (principal); I10 Essential (primary) hypertension; K44.9 Diaphragmatic hernia without obstruction or gangrene; K21.9 Gastro-esophageal reflux disease without esophagitis; F41.9 Anxiety disorder, unspecified; Z88.2 Allergy status to sulfonamides; Z88.8 Allergy status to other drugs, medicaments and biological substances; Z79.899 Other long term (current) drug therapy
CPT/HCPCS: 50590; J0131; J2250; J3010

== ENCOUNTER → 2023-01-18 | Outpatient (CLI) | payer OTHER | LOC: M ADAMS 10:53 | PROVIDERS: ATTEND Urology | DX: N20.0 Calculus of kidney (principal) ==

== ENCOUNTER → 2023-01-20 | Outpatient (REF) | payer OTHER ==
[2023-01-24 19:07] LABS: CA Hydro Phos 80 % (.); Ca Ox Monohydrate 10 % (.)
== END ==
LOC: M SMT 13:01
PROVIDERS: ATTEND Physician Assistant
DX: Z48.816 Encounter for surgical aftercare following surgery on the genitourinary system (principal)
CPT/HCPCS: 82365; G0463

== ENCOUNTER → 2023-01-31 | Outpatient (REF) | payer OTHER ==
[2023-01-31 17:25] LABS: HEMATOCRIT 38.8 % (36.0-47.0); MEAN CORPUSCULAR HGB CONC 33.5 g/dl (32.0-36.5); MEAN CORPUSCULAR VOLUME 92.6 fl (80.0-96.0); PLATELET COUNT, AUTOMATED 234 10^3/uL (150-450); RED BLOOD COUNT 4.19 10^6/uL (4.00-5.40); WHITE BLOOD COUNT 6.6 10^3/uL (4.0-10.0)
[2023-01-31 17:48] LABS: BLOOD UREA NITROGEN 11 MG/DL (9-23); CALCIUM LEVEL 9.2 MG/DL (8.5-10.1); CARBON DIOXIDE LEVEL 29 MMOL/L (20-31); CHLORIDE LEVEL 101 MMOL/L (98-107); CREATININE FOR GFR 0.72 MG/DL (0.55-1.30); GLOMERULAR FILTRATION RATE > 60.0 (>51); GLUCOSE, FASTING 101 MG/DL (60-100); POTASSIUM SERUM 3.7 MMOL/L (3.5-5.1); SODIUM LEVEL 137 MMOL/L (136-145)
[2023-01-31 17:56] LABS: APPEARANCE, URINE CLEAR (CLEAR); BACTERIA, URINE AUTO NEGATIVE (NEGATIVE); BILIRUBIN, URINE AUTO NEGATIVE (NEGATIVE); BLOOD, URINE BLOOD 1+ (NEGATIVE); COLOR, URINE COLORLESS (YELLOW); GLUCOSE, URINE (UA) AUTO NEGATIVE (NEGATIVE); KETONE, URINE AUTO NEGATIVE (NEGATIVE); LEUKOCYTE ESTERASE, URINE AUTO 2+ (NEGATIVE); NITRITE, URINE AUTO NEGATIVE (NEGATIVE); PROTEIN, URINE AUTO NEGATIVE (NEGATIVE); RBC, URINE AUTO 1 /HPF (0-3); SPECIFIC GRAVITY URINE AUTO 1.003 (1.002-1.035); SQUAMOUS EPITHELIAL CELL UR AU 0 /HPF (0-6); UROBILINOGEN, URINE AUTO 0.2 mg/dL (0.0-2.0); WBC, URINE AUTO 14 /HPF (0-3)
== END ==
LOC: M SFHCADAM 15:15
PROVIDERS: ATTEND Physician Assistant
DX: Z01.818 Encounter for other preprocedural examination (principal)

== ENCOUNTER → 2023-02-06 | Outpatient (REF) | payer OTHER ==
[2023-02-06 21:04] LABS: APPEARANCE, URINE CLEAR (CLEAR); BACTERIA, URINE AUTO 1+ (NEGATIVE); BILIRUBIN, URINE AUTO NEGATIVE (NEGATIVE); BLOOD, URINE BLOOD 1+ (NEGATIVE); COLOR, URINE STRAW (YELLOW); GLUCOSE, URINE (UA) AUTO NEGATIVE (NEGATIVE); KETONE, URINE AUTO NEGATIVE (NEGATIVE); LEUKOCYTE ESTERASE, URINE AUTO 3+ (NEGATIVE); NITRITE, URINE AUTO NEGATIVE (NEGATIVE); PROTEIN, URINE AUTO NEGATIVE (NEGATIVE); RBC, URINE AUTO 1 /HPF (0-3); SPECIFIC GRAVITY URINE AUTO 1.003 (1.002-1.035); SQUAMOUS EPITHELIAL CELL UR AU 0 /HPF (0-6); UROBILINOGEN, URINE AUTO 0.2 mg/dL (0.0-2.0); WBC, URINE AUTO 15 /HPF (0-3)
== END ==
LOC: M SMT 17:05
PROVIDERS: ATTEND Urology
DX: Z01.818 Encounter for other preprocedural examination (principal)

== ENCOUNTER → 2023-02-23 | Outpatient (REF) | payer OTHER ==
[2023-02-23 15:40] LABS: ALKALINE PHOSPHATASE 80 U/L (46-116); ALT/SGPT 60 U/L (7.0-40); AST/SGOT 38 U/L (<34); BILIRUBIN,TOTAL 0.5 MG/DL (0.3-1.2); BLOOD UREA NITROGEN 14 MG/DL (9-23); CALCIUM LEVEL 9.2 MG/DL (8.5-10.1); CARBON DIOXIDE LEVEL 27 MMOL/L (20-31); CHLORIDE LEVEL 104 MMOL/L (98-107); CHOLESTEROL LEVEL 245 MG/DL (<200); CHOLESTEROL RISK RATIO 5.26 (<5); CREATININE FOR GFR 0.78 MG/DL (0.55-1.30); GLOMERULAR FILTRATION RATE > 60.0 (>51); GLUCOSE, FASTING 94 MG/DL (60-100); HDL CHOLESTEROL 46.5 MG/DL (>40); LDL CHOLESTEROL 134.9 MG/DL (<100); NON-HDL-C 198.5 MG/DL; POTASSIUM SERUM 3.7 MMOL/L (3.5-5.1); SODIUM LEVEL 139 MMOL/L (136-145); TOTAL PROTEIN 7.1 G/DL (5.7-8.2); TRIGLYCERIDES LEVEL 318 MG/DL (<150)
== END ==
LOC: M SFHCADAM 09:40
PROVIDERS: ATTEND Physician Assistant
DX: R74.8 Abnormal levels of other serum enzymes (principal); E78.2 Mixed hyperlipidemia

== ENCOUNTER → 2023-03-02 | Outpatient (REF) | payer OTHER ==
[2023-03-03 23:07] LABS: ANA (HEP2) Positive (.); ANTI-MITOCHONDRIAL ANTIBODY <20.0 Units (0.0-20.0)
== END ==
LOC: M SFHCADAM 10:04
PROVIDERS: ATTEND Physician Assistant
DX: R74.8 Abnormal levels of other serum enzymes (principal)
CPT/HCPCS: 82728; 86038; 86255; G0463

== ENCOUNTER → 2023-03-14 | Outpatient (REF) | payer OTHER ==
[~2023-03-14] MED LIST changes: +[UNRECOGNIZED DRUG - CODE] PO
[2023-03-14 16:32] LABS: HEMATOCRIT 39.6 % (36.0-47.0); HEMOGLOBIN 13.4 g/dl (12.0-15.5); MEAN CORPUSCULAR HEMOGLOBIN 31.2 pg (27.0-33.0); MEAN CORPUSCULAR HGB CONC 33.8 g/dl (32.0-36.5); MEAN CORPUSCULAR VOLUME 92.1 fl (80.0-96.0); PLATELET COUNT, AUTOMATED 318 10^3/uL (150-450); WHITE BLOOD COUNT 7.8 10^3/uL (4.0-10.0)
[2023-03-14 16:57] LABS: APPEARANCE, URINE CLEAR (CLEAR); BACTERIA, URINE AUTO NEGATIVE (NEGATIVE); BILIRUBIN, URINE AUTO NEGATIVE (NEGATIVE); BLOOD, URINE BLOOD NEGATIVE (NEGATIVE); COLOR, URINE STRAW (YELLOW); GLUCOSE, URINE (UA) AUTO NEGATIVE (NEGATIVE); KETONE, URINE AUTO NEGATIVE (NEGATIVE); LEUKOCYTE ESTERASE, URINE AUTO 3+ (NEGATIVE); NITRITE, URINE AUTO NEGATIVE (NEGATIVE); PROTEIN, URINE AUTO NEGATIVE (NEGATIVE); RBC, URINE AUTO 1 /HPF (0-3); SPECIFIC GRAVITY URINE AUTO 1.002 (1.002-1.035); SQUAMOUS EPITHELIAL CELL UR AU 0 /HPF (0-6); UROBILINOGEN, URINE AUTO 0.2 mg/dL (0.0-2.0); WBC, URINE AUTO 3 /HPF (0-3)
[2023-03-14 17:14] LABS: BLOOD UREA NITROGEN 14 MG/DL (9-23); CALCIUM LEVEL 9.3 MG/DL (8.5-10.1); CARBON DIOXIDE LEVEL 27 MMOL/L (20-31); CHLORIDE LEVEL 103 MMOL/L (98-107); CREATININE FOR GFR 0.77 MG/DL (0.55-1.30); GLOMERULAR FILTRATION RATE > 60.0 (>51); GLUCOSE, FASTING 90 MG/DL (60-100); POTASSIUM SERUM 3.9 MMOL/L (3.5-5.1); SODIUM LEVEL 136 MMOL/L (136-145)
== END ==
LOC: M LABDRWAD 15:54
PROVIDERS: ATTEND Urology
DX: Z01.818 Encounter for other preprocedural examination (principal)

== ENCOUNTER 2023-03-23 10:57 | Day surgery (SDC) | payer OTHER ==
[~2023-03-23] VITALS: Ht 160 cm; Wt 79.4 kg
[~2023-03-23 10:57] MED LIST changes: +ACETAMINOPHEN 1000MG 100ML IV BAG As Ordered ONE; +LIDOCAINE 2% 100MG/5ML SDV (FOR ANES.) As Ordered ONE; +LR 1,000 ML IV SCH; +MIDAZOLAM INJ 2MG/2ML VIAL As Ordered ONE; +ONDANSETRON 4MG 2ML VIAL As Ordered ONE; +ceFAZolin SOD 2 GM in IV 1 EA IV ONE; +fentaNYL 100 MCG/2 ML INJECTION As Ordered ONE; +propofoL 200 MG/20 ML VIAL As Ordered ONE
[2023-03-23 11:00] VITALS: BP 112/74
== END 2023-03-23 11:11 | disposition home or self-care (01) ==
LOC: M SDC 10:57
PROVIDERS: ATTEND Urology
DX: N20.0 Calculus of kidney (principal); I10 Essential (primary) hypertension; K21.9 Gastro-esophageal reflux disease without esophagitis; K44.9 Diaphragmatic hernia without obstruction or gangrene; F41.9 Anxiety disorder, unspecified; G43.909 Migraine, unspecified, not intractable, without status migrainosus; Z79.899 Other long term (current) drug therapy; Z88.2 Allergy status to sulfonamides; Z88.8 Allergy status to other drugs, medicaments and biological substances; Z88.1 Allergy status to other antibiotic agents
CPT/HCPCS: 50590; J0131; J0690; J1100; J2250; J2405; J3010

== ENCOUNTER → 2023-03-23 | Outpatient (CLI) | payer OTHER | LOC: M RAD 07:21 | PROVIDERS: ATTEND Urology | DX: N20.0 Calculus of kidney (principal) ==

== ENCOUNTER → 2023-03-31 | Outpatient (CLI) | payer OTHER ==
[~2023-03-31] MED LIST changes: -ACETAMINOPHEN 1000MG 100ML IV BAG As Ordered ONE; -LIDOCAINE 2% 100MG/5ML SDV (FOR ANES.) As Ordered ONE; -LR 1,000 ML IV SCH; -MIDAZOLAM INJ 2MG/2ML VIAL As Ordered ONE; -ONDANSETRON 4MG 2ML VIAL As Ordered ONE; -ceFAZolin SOD 2 GM in IV 1 EA IV ONE; -fentaNYL 100 MCG/2 ML INJECTION As Ordered ONE; -propofoL 200 MG/20 ML VIAL As Ordered ONE
== END ==
LOC: M SOG 08:00
PROVIDERS: ATTEND Orthopaedic Surgery
DX: M17.0 Bilateral primary osteoarthritis of knee (principal)

== ENCOUNTER → 2023-04-05 | Outpatient (CLI) | payer OTHER | LOC: M RAD 13:31 | PROVIDERS: ATTEND Physician Assistant | DX: M79.89 Other specified soft tissue disorders (principal) ==

== ENCOUNTER → 2023-04-05 | Outpatient (REF) | payer OTHER ==
[2023-04-05 17:24] LABS: C REACTIVE PROTEIN QUANTITATIV < 0.40 MG/DL (<1.0)
[2023-04-05 17:25] LABS: RHEUMATOID FACTOR QUANT 5.9 IU/ML (<14)
== END ==
LOC: M SFHCADAM 11:54
PROVIDERS: ATTEND Physician Assistant
DX: M79.89 Other specified soft tissue disorders (principal); M25.461 Effusion, right knee

== ENCOUNTER → 2023-04-07 | Outpatient (CLI) | payer OTHER | LOC: M RAD 09:23 | PROVIDERS: ATTEND Physician Assistant | DX: R74.8 Abnormal levels of other serum enzymes (principal) ==

== ENCOUNTER → 2023-04-12 | Outpatient (CLI) | payer OTHER | LOC: M ADAMS 14:17 | PROVIDERS: ATTEND Urology | DX: N20.0 Calculus of kidney (principal) ==

== ENCOUNTER → 2023-05-18 | Outpatient (REF) | payer OTHER ==
[2023-05-18 13:33] LABS: FREE T4 0.98 NG/DL (0.89-1.76)
[2023-05-18 13:34] LABS: THYROID STIMULATING HORMONE 0.618 uIU/ML (0.55-4.78)
[2023-05-18 13:36] LABS: ALKALINE PHOSPHATASE 78 U/L (46-116); ALT/SGPT 58 U/L (7.0-40); AST/SGOT < 8 U/L (<34); BILIRUBIN,TOTAL 0.5 MG/DL (0.3-1.2); BLOOD UREA NITROGEN 14 MG/DL (9-23); CALCIUM LEVEL 8.9 MG/DL (8.5-10.1); CARBON DIOXIDE LEVEL 27 MMOL/L (20-31); CHLORIDE LEVEL 103 MMOL/L (98-107); CREATININE FOR GFR 0.73 MG/DL (0.55-1.30); GLOMERULAR FILTRATION RATE > 60.0 (>51); GLUCOSE, FASTING 114 MG/DL (60-100); POTASSIUM SERUM 3.8 MMOL/L (3.5-5.1); SODIUM LEVEL 139 MMOL/L (136-145); TOTAL PROTEIN 6.6 G/DL (5.7-8.2)
[2023-05-18 13:37] LABS: HEMATOCRIT 40.2 % (36.0-47.0); HEMOGLOBIN 13.5 g/dl (12.0-15.5); MEAN CORPUSCULAR HEMOGLOBIN 31.5 pg (27.0-33.0); MEAN CORPUSCULAR HGB CONC 33.6 g/dl (32.0-36.5); MEAN CORPUSCULAR VOLUME 93.9 fl (80.0-96.0); PLATELET COUNT, AUTOMATED 287 10^3/uL (150-450); RED BLOOD COUNT 4.28 10^6/uL (4.00-5.40); WHITE BLOOD COUNT 6.9 10^3/uL (4.0-10.0)
[2023-05-18 14:01] LABS: HEMOGLOBIN A1c 6.6 % (4.0-6.0)
== END ==
LOC: M SFHCADAM 08:38
PROVIDERS: ATTEND Physician Assistant
DX: E11.9 Type 2 diabetes mellitus without complications (principal); I10 Essential (primary) hypertension; Q61.5 Medullary cystic kidney; N20.0 Calculus of kidney; E78.2 Mixed hyperlipidemia

== ENCOUNTER → 2023-07-11 | Outpatient (CLI) | payer OTHER | LOC: M PLAIMG 10:10 | PROVIDERS: ATTEND Physician Assistant | DX: N20.0 Calculus of kidney (principal) ==

== ENCOUNTER → 2023-09-07 | Outpatient (CLI) | payer OTHER ==
[~2023-09-07] MED LIST changes: -OXYB5TAB10 PO; +OXYB5TAB11 PO
== END ==
LOC: M WHC 11:59
PROVIDERS: ATTEND Physician Assistant
DX: N20.1 Calculus of ureter (principal)

== ENCOUNTER → 2023-12-29 | Outpatient (REF) | payer OTHER ==
[~2023-12-29] MED LIST changes: -OXYB5TAB11 PO; +OXYB5TAB14 PO
[2023-12-29 17:31] LABS: HEMOGLOBIN A1c 6.6 % (4.0-6.0)
== END ==
LOC: M SFHCADAM 13:03
PROVIDERS: ATTEND Physician Assistant
DX: E11.9 Type 2 diabetes mellitus without complications (principal)

== ENCOUNTER → 2024-02-16 | Outpatient (CLI) | payer OTHER | LOC: M RAD 11:05 | PROVIDERS: ATTEND Physician Assistant | DX: K80.20 Calculus of gallbladder without cholecystitis without obstruction (principal); K76.0 Fatty (change of) liver, not elsewhere classified; K44.9 Diaphragmatic hernia without obstruction or gangrene; J98.11 Atelectasis; N28.1 Cyst of kidney, acquired ==

== ENCOUNTER 2024-06-18 15:47 | Emergency (ER) | payer OTHER ==
[~2024-06-18] VITALS: Ht 160 cm; Wt 84.2 kg
[2024-06-18] MEDS ORDERED: IBUP200C25 PO (17:18)
[2024-06-18] MEDS ORDERED: ESOM40CA35 (17:18)
[2024-06-18] MEDS ORDERED: POTA10808 (17:18)
[2024-06-18] MEDS ORDERED: FLUC150T9 (17:18)
[2024-06-18] MEDS: ONDANSETRON 4MG 2ML VIAL IV ONE (17:24)
[2024-06-18] MEDS: MORPHINE 4 MG/ML 1ML VIAL IV PRN (17:25)
[2024-06-18 17:34] VITALS: TEMP 96.5
[2024-06-18] MEDS: NS 1,000 ML IV SCH (18:45)
[2024-06-18] MEDS: propofoL 200 MG/20 ML VIAL IV.PROC PRN (19:44)
[2024-06-18 21:55] VITALS: O2SAT 92
[2024-06-18 22:00] VITALS: BP 132/84
[2024-06-18] MEDS ORDERED: HYDR-3713 PO (22:50)
[2024-06-18] MEDS: NORCO 5/325MG TABLET (HOME DOSE PACK) PO ONE (23:05)
== END 2024-06-18 23:12 | disposition home or self-care (01) ==
LOC: M ED 15:47
DX: S43.084A Other dislocation of right shoulder joint, initial encounter (principal); W16.032A Fall into swimming pool striking wall causing other injury, initial encounter; E11.9 Type 2 diabetes mellitus without complications; I10 Essential (primary) hypertension; E78.5 Hyperlipidemia, unspecified; F10.90 Alcohol use, unspecified, uncomplicated; Z88.2 Allergy status to sulfonamides; Z88.8 Allergy status to other drugs, medicaments and biological substances; Z79.1 Long term (current) use of non-steroidal anti-inflammatories (NSAID); Z79.899 Other long term (current) drug therapy; Y92.007 Garden or yard of unspecified non-institutional (private) residence as the place of occurrence of the external cause; Y93.89 Activity, other specified; Y99.9 Unspecified external cause status
CPT/HCPCS: 23655; 73020; 73030; 73060; 93041; 96374; 96375; 96376; 99152; 99285; J2405

== ENCOUNTER → 2024-06-28 | Outpatient (CLI) | payer OTHER ==
[~2024-06-28] MED LIST changes: +ESOM40CA35; +FLUC150T9; +HYDR-3713 PO; +IBUP200C25 PO; +POTA10808
== END ==
LOC: M SOG 13:59
PROVIDERS: ATTEND Physician Assistant
DX: M25.572 Pain in left ankle and joints of left foot (principal)

== ENCOUNTER → 2024-07-05 | Outpatient (REF) | payer OTHER ==
[2024-07-05 13:03] LABS: CHOLESTEROL RISK RATIO 5.91 (<5); HDL CHOLESTEROL 43.1 MG/DL (>40); LDL CHOLESTEROL 155.3 MG/DL (<100); NON-HDL-C 211.9 MG/DL
== END ==
LOC: M SFHCADAM 07:59
PROVIDERS: ATTEND Physician Assistant
DX: E11.9 Type 2 diabetes mellitus without complications (principal); I10 Essential (primary) hypertension; E78.00 Pure hypercholesterolemia, unspecified; K21.9 Gastro-esophageal reflux disease without esophagitis; R13.19 Other dysphagia; E66.9 Obesity, unspecified; K76.0 Fatty (change of) liver, not elsewhere classified; Z68.31 Body mass index [BMI] 31.0-31.9, adult

== ENCOUNTER → 2024-07-11 | Outpatient (REF) | payer OTHER | LOC: M SFHCADAM 11:47 | PROVIDERS: ATTEND Physician Assistant | DX: Z53.20 Procedure and treatment not carried out because of patient's decision for unspecified reasons (principal) ==

== ENCOUNTER → 2024-08-26 | Outpatient (CLI) | payer OTHER | LOC: M PLAIMG 09:40 | PROVIDERS: ATTEND Physician Assistant | DX: S43.014D Anterior dislocation of right humerus, subsequent encounter (principal); S43.401A Unspecified sprain of right shoulder joint, initial encounter; X58.XXXA Exposure to other specified factors, initial encounter; Y92.9 Unspecified place or not applicable ==

== ENCOUNTER → 2024-10-08 | Outpatient (CLI) | payer OTHER ==
[~2024-10-08] MED LIST changes: -POTA10808; +POTA10809
== END ==
LOC: M RAD 14:03
PROVIDERS: ATTEND Physician Assistant
DX: N20.0 Calculus of kidney (principal); N28.1 Cyst of kidney, acquired

== ENCOUNTER → 2024-10-10 | Outpatient (REF) | payer OTHER ==
[2024-10-10 13:57] LABS: BASO # 0.1 10^3/uL (0.0-0.2); BASO % 0.6 % (0.0-1.0); EOS # 0.2 10^3/uL (0.0-0.5); EOS % 2.6 % (0.0-3.0); HEMATOCRIT 40.8 % (36.0-47.0); HEMOGLOBIN 13.7 g/dl (12.0-15.5); LYMPH # 2.9 10^3/uL (1.5-5.0); LYMPH % 36.4 % (24.0-44.0); MEAN CORPUSCULAR HEMOGLOBIN 31.5 pg (27.0-33.0); MEAN CORPUSCULAR HGB CONC 33.6 g/dl (32.0-36.5); MEAN CORPUSCULAR VOLUME 93.8 fl (80.0-96.0); MONO # 0.7 10^3/uL (0.0-0.8); MONO % 8.1 % (2.0-8.0); NEUTROPHILS # 4.2 10^3/uL (1.5-8.5); NEUTROPHILS % 51.9 % (36.0-66.0); PLATELET COUNT, AUTOMATED 290 10^3/uL (150-450); RED BLOOD COUNT 4.35 10^6/uL (4.00-5.40)
[2024-10-10 14:00] LABS: ALKALINE PHOSPHATASE 105 U/L (35-104); ALT/SGPT 81 U/L (7.0-40); AST/SGOT 49 U/L (<34); BILIRUBIN,TOTAL 0.5 MG/DL (0.3-1.2); BLOOD UREA NITROGEN 13 MG/DL (9-23); CALCIUM LEVEL 9.8 MG/DL (8.5-10.1); CARBON DIOXIDE LEVEL 28 MMOL/L (20-31); CHLORIDE LEVEL 102 MMOL/L (98-107); CHOLESTEROL LEVEL 193 MG/DL (<200); CHOLESTEROL RISK RATIO 4.15 (<5); CREATININE FOR GFR 0.82 MG/DL (0.55-1.30); GLOMERULAR FILTRATION RATE > 60.0 (>51); GLUCOSE, FASTING 124 MG/DL (60-100); HDL CHOLESTEROL 46.4 MG/DL (>40); LDL CHOLESTEROL 110.4 MG/DL (<100); NON-HDL-C 146.6 MG/DL; POTASSIUM SERUM 4.3 MMOL/L (3.5-5.1); SODIUM LEVEL 140 MMOL/L (136-145); TOTAL PROTEIN 7.1 G/DL (5.7-8.2); TRIGLYCERIDES LEVEL 181 MG/DL (<150)
[2024-10-10 14:02] LABS: FREE T4 1.04 NG/DL (0.89-1.76)
[2024-10-10 14:33] LABS: HEMOGLOBIN A1c 6.9 % (4.0-6.0)
== END ==
LOC: M SFHCADAM 09:21
PROVIDERS: ATTEND Physician Assistant
DX: E66.9 Obesity, unspecified (principal); E11.9 Type 2 diabetes mellitus without complications; I10 Essential (primary) hypertension; E78.00 Pure hypercholesterolemia, unspecified

== ENCOUNTER → 2024-10-17 | Outpatient (REF) | payer OTHER ==
[2024-10-17 13:51] LABS: FREE T4 1.05 NG/DL (0.89-1.76); THYROID STIMULATING HORMONE 1.104 uIU/ML (0.55-4.78)
== END ==
LOC: M LAB REF 13:02
PROVIDERS: ATTEND Internal Medicine Nephrology
DX: E03.9 Hypothyroidism, unspecified (principal)

== ENCOUNTER → 2025-01-22 | Outpatient (REF) | payer OTHER ==
[2025-01-22 14:14] LABS: HEMATOCRIT 40.5 % (36.0-47.0); HEMOGLOBIN 13.7 g/dl (12.0-15.5); MEAN CORPUSCULAR HEMOGLOBIN 31.6 pg (27.0-33.0); MEAN CORPUSCULAR HGB CONC 33.8 g/dl (32.0-36.5); MEAN CORPUSCULAR VOLUME 93.5 fl (80.0-96.0); PLATELET COUNT, AUTOMATED 291 10^3/uL (150-450); RED BLOOD COUNT 4.33 10^6/uL (4.00-5.40); WHITE BLOOD COUNT 8.2 10^3/uL (4.0-10.0)
[2025-01-22 14:28] LABS: HEMOGLOBIN A1c 7.2 % (4.0-6.0)
[2025-01-22 15:15] LABS: ALKALINE PHOSPHATASE 100 U/L (35-104); ALT/SGPT 52 U/L (7.0-40); AST/SGOT 29 U/L (<34); BILIRUBIN,TOTAL 0.5 MG/DL (0.3-1.2); BLOOD UREA NITROGEN 14 MG/DL (9-23); CALCIUM LEVEL 9.2 MG/DL (8.5-10.1); CARBON DIOXIDE LEVEL 28 MMOL/L (20-31); CHLORIDE LEVEL 104 MMOL/L (98-107); CHOLESTEROL LEVEL 174 MG/DL (<200); CREATININE FOR GFR 0.76 MG/DL (0.55-1.30); GLOMERULAR FILTRATION RATE > 60.0 (>51); GLUCOSE, FASTING 119 MG/DL (60-100); HDL CHOLESTEROL 48.3 MG/DL (>40); LDL CHOLESTEROL 87.1 MG/DL (<100); NON-HDL-C 125.7 MG/DL; POTASSIUM SERUM 4.1 MMOL/L (3.5-5.1); SODIUM LEVEL 144 MMOL/L (136-145); TOTAL PROTEIN 7.1 G/DL (5.7-8.2); TRIGLYCERIDES LEVEL 193 MG/DL (<150)
== END ==
LOC: M SFHCADAM 09:11
PROVIDERS: ATTEND Physician Assistant
DX: E11.9 Type 2 diabetes mellitus without complications (principal); I10 Essential (primary) hypertension; E78.2 Mixed hyperlipidemia

== ENCOUNTER → 2025-01-28 | Outpatient (REF) | payer OTHER | LOC: M SFHCADAM 14:34 | PROVIDERS: ATTEND Physician Assistant | DX: M79.18 Myalgia, other site (principal) ==

== ENCOUNTER → 2025-07-03 | Outpatient (REF) | payer OTHER ==
[~2025-07-03] MED LIST changes: -EQL50TAB2 PO; +HYDR12.510 PO; -HYDR12CA PO; +VITA1TAB82 PO
[2025-07-03 13:30] LABS: ALT/SGPT 53.0 U/L (7.0-40); AST/SGOT 36.0 U/L (<34); CALCIUM LEVEL 9.6 MG/DL (8.5-10.1); CARBON DIOXIDE LEVEL 28.0 MMOL/L (20-31); CHLORIDE LEVEL 104.0 MMOL/L (98-107); CHOLESTEROL LEVEL 280.0 MG/DL (<200); CHOLESTEROL RISK RATIO 6.12 (<5); CREATININE FOR GFR 1.17 MG/DL (0.55-1.30); GLOMERULAR FILTRATION RATE 54.1 (>51); LDL CHOLESTEROL 187.3 MG/DL (<100); NON-HDL-C 234.3 MG/DL; POTASSIUM SERUM 4.5 MMOL/L (3.5-5.1); SODIUM LEVEL 143.0 MMOL/L (136-145); TRIGLYCERIDES LEVEL 235.0 MG/DL (<150)
== END ==
LOC: M SFHCADAM 09:36
PROVIDERS: ATTEND Physician Assistant
DX: E78.00 Pure hypercholesterolemia, unspecified (principal)

== ENCOUNTER → 2025-07-15 | Outpatient (CLI) | payer OTHER | LOC: M SLEEP HO 10:46 | PROVIDERS: ATTEND Physician Assistant | DX: R06.83 Snoring (principal) ==

== ENCOUNTER → 2025-10-14 | Outpatient (REF) | payer OTHER ==
[2025-10-14 15:18] LABS: ALT/SGPT 45.0 U/L (7.0-40); AST/SGOT 30.0 U/L (<34); CALCIUM LEVEL 9.2 MG/DL (8.5-10.1); CARBON DIOXIDE LEVEL 30.0 MMOL/L (20-31); CHLORIDE LEVEL 105.0 MMOL/L (98-107); CHOLESTEROL LEVEL 254.0 MG/DL (<200); CHOLESTEROL RISK RATIO 5.47 (<5); CREATININE FOR GFR 0.91 MG/DL (0.55-1.30); GLOMERULAR FILTRATION RATE 73.1 (>51); LDL CHOLESTEROL 164.8 MG/DL (<100); NON-HDL-C 207.6 MG/DL; POTASSIUM SERUM 4.7 MMOL/L (3.5-5.1); SODIUM LEVEL 143.0 MMOL/L (136-145); TRIGLYCERIDES LEVEL 214.0 MG/DL (<150)
[2025-10-14 15:46] LABS: ESTIMATED AVERAGE GLUCOSE 123.0 MG/DL (60-110)
== END ==
LOC: M SFHCADAM 09:03
PROVIDERS: ATTEND Physician Assistant
DX: E11.9 Type 2 diabetes mellitus without complications (principal); E78.00 Pure hypercholesterolemia, unspecified; K75.81 Nonalcoholic steatohepatitis (NASH); Z91.89 Other specified personal risk factors, not elsewhere classified